=== PATIENT | male | born 1960 | race Caucasian/White ===

== ENCOUNTER 2020-02-09 16:02 | Emergency (ER) | payer MEDICARE, SELFPAY ==
[2020-02-09 16:11] VITALS: BP 173/100; PULSE 77; RESP 14; TEMP 36.6; O2SAT 96; BMI 40.6
[2020-02-09 16:28] VITALS: BP 173/112; PULSE 72; RESP 18; TEMP 36.7; O2SAT 96
--- NOTE | 2020-02-09 16:44 | XR_ITS ---
WS: [id number] PORTABLE CHEST HISTORY: SOB COMPARISON: 01/31/2019 Lungs are clear and well expanded. No pleural effusion or pneumothorax. Cardiac size: Normal. Mediastinum/Aorta: Normal mediastinum. No osseous abnormality seen. XR/XR chest 1V portable [id number] IMPRESSION: Unremarkable portable chest.
--- NOTE | 2020-02-09 16:44 | ECG_ITS ---
Measurements Intervals Wesley Rate: 67 P: 29 TX: 188 QRS: 25 QRSD: 110 T: 24 QT: 418 QTc: 442 SINUS RHYTHM No previous ECG available for comparison Electronically Signed On 02-10-2020 22:05:19 CDT by Dayanna Lazo M.D. [email or web address]
[2020-02-09 17:00] LABS: INR 0.93 (0.8-1.2)
[2020-02-09 17:01] LABS: Basophils % 0.6 %; Eosinophils # 0.1 10^3/uL (0.0-0.8); Eosinophils % 2.1 %; Hematocrit 37.2 % (42.0-52.0); Hemoglobin 12.7 g/dL (11.7-16.6); Lymphocytes # 1.4 10^3/uL (0.8-4.8); Lymphocytes % 29.2 %; Mean Corpuscular HGB Conc 34.1 g/dL (30.0-36.0); Mean Corpuscular Hemoglobin 29.1 pg (28.0-34.0); Mean Corpuscular Volume 85.1 fL (80-94); Mean Platelet Volume 9.6 fL (7.4-10.4); Monocytes # 0.7 10^3/uL (0.2-0.9); Monocytes % 15.8 %; Neutrophils # 2.4 10^3/uL (1.8-7.7); Neutrophils % 50.4 %; Nucleated Red Blood Cells % 0 %; Platelet Count 130 10^3/cmm (130-400); Red Blood Count 4.37 10^6/uL (4.1-5.3); Red Cell Distribution Width 12.4 % (12.1-15.1); White Blood Count 4.7 10^3/uL (4.0-10.0)
[2020-02-09 17:03] LABS: D Dimer 1.91 ug/mIFEU (0-0.59)
[2020-02-09 17:08] LABS: Troponin T (5th) Once 16 ng/mL (0-15)
--- NOTE | 2020-02-09 17:11 | W.ED.GENADLT ---
HPI - General Adult General: Chief complaint: General Medical Stated complaint: sent by dr estuardo black Time Seen by Provider: 02/09/20 16:20 History of Present Illness: HPI narrative: Mr. Curiel is a 59 year old male presenting with concerns for kidney problems. he has a history of lupus and thinks his current symptoms are similar to when he was first diagnosed in 2003. He has had morning nausea for about 10 days, increased swelling in his legs that doesn't go down at night, back pain and since yesterday his eyes have been red and painful. He is not currently on any medication for lupus - he was treated with chemotherapy and did so well that he hasn't had to be on anything for a while. Dr. Black is his PCP and she asked him to come in to get test done. Associated symptoms: Deny chest pain, dyspnea, headache(s), malaise, nausea, rash or vomiting Review of Systems General: Reports: 10 or more systems reviewed and unremarkable except in HPI and below Const: Denies: fever(s), chills, fatigue or malaise Eyes: Reports: eye discomfort and eye redness ENMT: Denies: odynophagia Card: Reports: swelling of feet/ankles; Denies: chest pain, lightheadedness or orthopnea Resp: Denies: dyspnea, productive cough or non-productive cough GI: Denies: abdominal pain, nausea or vomiting : Denies: flank pain Musc: Reports: back pain; Denies: neck pain Skin/Breast: Denies: rash Neuro: Denies: headache(s), numbness in extremities or weakness in extremities Sam/Lymph: Denies: easy bruising or easy bleeding [facility] ED PFSH: Social History Smoking and tobacco status: never smoked Physical Exam Const: COMMON NORMALS: no acute distress, patient oriented x3, no limitations and alert GENERAL APPEARANCE: cooperative and comfortable HENMT: HEAD & SCALP: normal to inspection FACE & SINUS: normal facial exam Eye: CONJUNCTIVA: Yes conjunctival abnormal ([place] redness of the conjunctive of both eyes, greater on the right than the left) Neck/C-Spine: COMMON NORMALS: supple, no meningeal signs and no JVD Chest: COMMONS NORMALS: normal inspection of the chest Resp: COMMON NORMALS: normal respiratory effort, No use of accessory muscles and clear to auscultation bilaterally AUSCULTATION: clear to auscultation bilaterally Cardio: COMMON NORMALS: no JVD, regular rate, regular rhythm and No murmurs present (Cardio) RATE: regular rate RHYTHM: regular rhythm GI: COMMON NORMALS: Normal to inspection, nondistended, normoactive bowel sounds present, Soft to palpation and non-tender INSPECTION: Yes normal to inspection AUSCULTATION: Yes normoactive bowel sounds PALPATION: Yes Soft to palpation Back/Pelvis: COMMON NORMALS: thoracic and lumbar spine normal to inspection Extremity: NARRATIVE EXTREMITY EXAM: Marked pedal edema, 2+ pitting Neuro: COMMON NORMALS: patient oriented x3, moves all extremities, no focal motor deficits and no sensory deficits noted SENSORIUM/ORIENTATION: Yes alert MENINGEAL SIGNS: Yes no meningeal signs Psych: COMMON NORMALS: mental status grossly normal, cooperative and normal affect Skin: COMMON NORMALS: no rashes or lesions noted and turgor normal GENERAL SKIN EXAM: no rashes or lesions noted and turgor normal Course ED course: This patient with a history of lupus is presenting with acute renal failure. He has protein and blood in the urine. His albumin is low. His potassium is normal at 4.2 and he is not acidotic. He is slightly anemic at 12.7. His d-dimer was elevated as where his CRP and ESR. Ultrasounds of his legs showed no acute clots, just chronic clots which she knew we had. BNP was only 525. I spoke with Dr. Harris his primary care physician and she said they had checked labs about 10 days ago and his creatinine was just above 2 at that time. His baseline is about 1.5. He sees Dr. Mooney at [facility]. He does not currently have a learning and development intern. He is agreeable to transfer to [facility] for further work-up and management of his kidneys. I spoke to Dr. Alvarez at [facility] who is a hospitalist and has accepted the patient as a direct admit. Vital Signs: Vital signs: Vital Signs Temperature 98.0 F 02/09/20 16:28 Pulse Rate 70 02/09/20 20:18 Respiratory Rate 20 H 02/09/20 20:18 Blood Pressure 152/101 02/09/20 20:18 Pulse Oximetry 97 02/09/20 20:18 MDM - General Adult Lab Data: Labs: Lab Results 02/09/20 02/09/20 02/09/20 Range/Units 16:40 16:40 16:40 WBC 4.7 (4.0-10.0) 10^3/ uL RBC 4.37 (4.1-5.3) 10^6/u L Hgb 12.7 (11.7-16.6) g/dL Hct 37.2 L (42.0-52.0) % MCV 85.1 (80-94) fL MCH 29.1 (28.0-34.0) pg MCHC 34.1 (30.0-36.0) g/dL RDW 12.4 (12.1-15.1) % Plt Count 130 (130-400) 10^3/c mm MPV 9.6 (7.4-10.4) fL Neut % (Auto) 50.4 % Lymph % (Auto) 29.2 % [place] % (Auto) 15.8 % Eos % (Auto) 2.1 % Baso % (Auto) 0.6 % Neut # (Auto) 2.4 (1.8-7.7) 10^3/u L Lymph # (Auto) 1.4 (0.8-4.8) 10^3/u L [place] # (Auto) 0.7 (0.2-0.9) 10^3/u L Eos # (Auto) 0.1 (0.0-0.8) 10^3/u L Baso # (Auto) 0.0 (0.0-0.1) 10^3/u L Nucleated RBC % (a uto) 0 % Nucleated RBCs # 0.0 /100WBC ESR 76 H (0-10) mm/hr PT 12.80 (10.5-13.3) SECO NDS INR 0.93 (0.8-1.2) D-Dimer 1.91 H (0-0.59) ug/mIFE U Sodium (136-145) mmol/L Potassium (3.5-5.1) mmol/L Chloride (98-107) mmol/L Carbon Dioxide (22-29) mmol/L Anion Gap (5-19) BUN (6-20) mg/dL Creatinine (0.7-1.2) mg/dL GFR Calculation (90-130) mL/min Glucose (65-115) mg/dL Calculated Osmolal ity (285-295) mOsm/k g Lactate (0.5-2.2) mmol/L Calcium (8.5-10.5) mg/dL Magnesium (1.7-2.3) mg/dL Total Bilirubin (0.15-1.2) mg/dL AST (0-40) U/L ALT (0-41) U/L Alkaline Phosphata se (40-130) IU/L Troponin T Gen 5 n g/L (0-15) ng/mL C-Reactive Protein (0.0-4.9) mg/L NT-Pro-B Natriuret Pep (0-125) pg/mL Total Protein (6.6-8.7) g/dL Albumin (3.5-5.2) g/dL Globulin (1.3-4.6) g/dL Lipase (13-60) U/L Urine Color (Yellow) Urine Appearance (CLEAR) Urine pH (5-7) Ur Specific Gravit y (1.005-1.030) Urine Protein (Negative) Urine Glucose (UA) (Normal) Urine Ketones (Negative) Urine Blood (Negative) Urine Nitrate (Negative) Urine Bilirubin (NEGATIVE) Urine Urobilinogen (Negative) mg/dL Ur Leukocyte Flores ase (Negative) Urine RBC (0-2) /hpf Urine WBC (0-5) /hpf Ur Squamous Epith Cells (0-5) Urine Bacteria (NONE) Hyaline Casts 02/09/20 02/09/20 02/09/20 Range/Units 16:40 16:40 16:40 WBC (4.0-10.0) 10^3/ uL RBC (4.1-5.3) 10^6/u L Hgb (11.7-16.6) g/dL Hct (42.0-52.0) % MCV (80-94) fL MCH (28.0-34.0) pg MCHC (30.0-36.0) g/dL RDW (12.1-15.1) % Plt Count (130-400) 10^3/c mm MPV (7.4-10.4) fL Neut % (Auto) % Lymph % (Auto) % [place] % (Auto) % Eos % (Auto) % Baso % (Auto) % Neut # (Auto) (1.8-7.7) 10^3/u L Lymph # (Auto) (0.8-4.8) 10^3/u L [place] # (Auto) (0.2-0.9) 10^3/u L Eos # (Auto) (0.0-0.8) 10^3/u L Baso # (Auto) (0.0-0.1) 10^3/u L Nucleated RBC % (a uto) % Nucleated RBCs # /100WBC ESR (0-10) mm/hr PT (10.5-13.3) SECO NDS INR (0.8-1.2) D-Dimer (0-0.59) ug/mIFE U Sodium 136 (136-145) mmol/L Potassium 4.2 (3.5-5.1) mmol/L Chloride 101 (98-107) mmol/L Carbon Dioxide 22 (22-29) mmol/L Anion Gap 17.2 (5-19) BUN 61 H (6-20) mg/dL Creatinine 3.7 H (0.7-1.2) mg/dL GFR Calculation 17.0 L (90-130) mL/min Glucose 102 (65-115) mg/dL Calculated Osmolal ity 281 L (285-295) mOsm/k g Lactate (0.5-2.2) mmol/L Calcium 8.9 (8.5-10.5) mg/dL Magnesium 2.4 H (1.7-2.3) mg/dL Total Bilirubin 0.2 (0.15-1.2) mg/dL AST 32 (0-40) U/L ALT 26 (0-41) U/L Alkaline Phosphata se 70 (40-130) IU/L Troponin T Gen 5 n g/L 16 H (0-15) ng/mL C-Reactive Protein 4.2 (0.0-4.9) mg/L NT-Pro-B Natriuret Pep 252 H (0-125) pg/mL Total Protein 6.1 L (6.6-8.7) g/dL Albumin 2.8 L (3.5-5.2) g/dL Globulin 3.3 (1.3-4.6) g/dL Lipase 94 H (13-60) U/L Urine Color Straw (Yellow) Urine Appearance Clear (CLEAR) Urine pH 6 (5-7) Ur Specific Gravit y 1.010 (1.005-1.030) Urine Protein 3+ H (Negative) Urine Glucose (UA) Norm (Normal) Urine Ketones Negative (Negative) Urine Blood 3+ H (Negative) Urine Nitrate Negative (Negative) Urine Bilirubin Neg (NEGATIVE) Urine Urobilinogen Norm (Negative) mg/dL Ur Leukocyte Flores ase Negative (Negative) Urine RBC 5-10 H (0-2) /hpf Urine WBC 5-10 H (0-5) /hpf Ur Squamous Epith Cells 0-4 H (0-5) Urine Bacteria 1+ H (NONE) Hyaline Casts 0-4 H 05/25/20 Range/Units 17:07 WBC (4.0-10.0) 10^3/ uL RBC (4.1-5.3) 10^6/u L Hgb (11.7-16.6) g/dL Hct (42.0-52.0) % MCV (80-94) fL MCH (28.0-34.0) pg MCHC (30.0-36.0) g/dL RDW (12.1-15.1) % Plt Count (130-400) 10^3/c mm MPV (7.4-10.4) fL Neut % (Auto) % Lymph % (Auto) % [place] % (Auto) % Eos % (Auto) % Baso % (Auto) % Neut # (Auto) (1.8-7.7) 10^3/u L Lymph # (Auto) (0.8-4.8) 10^3/u L [place] # (Auto) (0.2-0.9) 10^3/u L Eos # (Auto) (0.0-0.8) 10^3/u L Baso # (Auto) (0.0-0.1) 10^3/u L Nucleated RBC % (a uto) % Nucleated RBCs # /100WBC ESR (0-10) mm/hr PT (10.5-13.3) SECO NDS INR (0.8-1.2) D-Dimer (0-0.59) ug/mIFE U Sodium (136-145) mmol/L Potassium (3.5-5.1) mmol/L Chloride (98-107) mmol/L Carbon Dioxide (22-29) mmol/L Anion Gap (5-19) BUN (6-20) mg/dL Creatinine (0.7-1.2) mg/dL GFR Calculation (90-130) mL/min Glucose (65-115) mg/dL Calculated Osmolal ity (285-295) mOsm/k g Lactate 0.6 (0.5-2.2) mmol/L Calcium (8.5-10.5) mg/dL Magnesium (1.7-2.3) mg/dL Total Bilirubin (0.15-1.2) mg/dL AST (0-40) U/L ALT (0-41) U/L Alkaline Phosphata se (40-130) IU/L Troponin T Gen 5 n g/L (0-15) ng/mL C-Reactive Protein (0.0-4.9) mg/L NT-Pro-B Natriuret Pep (0-125) pg/mL Total Protein (6.6-8.7) g/dL Albumin (3.5-5.2) g/dL Globulin (1.3-4.6) g/dL Lipase (13-60) U/L Urine Color (Yellow) Urine Appearance (CLEAR) Urine pH (5-7) Ur Specific Gravit y (1.005-1.030) Urine Protein (Negative) Urine Glucose (UA) (Normal) Urine Ketones (Negative) Urine Blood (Negative) Urine Nitrate (Negative) Urine Bilirubin (NEGATIVE) Urine Urobilinogen (Negative) mg/dL Ur Leukocyte Flores ase (Negative) Urine RBC (0-2) /hpf Urine WBC (0-5) /hpf Ur Squamous Epith Cells (0-5) Urine Bacteria (NONE) Hyaline Casts Discharge Plan Discharge Condition: Good Prescriptions: No Action losartan 50 mg tablet 50 mg PO BID RF: 0 amlodipine 10 mg tablet 10 mg PO DAILY RF: 0 metoprolol tartrate 50 mg tablet 50 mg PO BID RF: 0 hydrochlorothiazide 25 mg tablet 25 mg PO DAILY RF: 0 duloxetine 30 mg capsule,delayed release(DR/EC) 30 mg PO DAILY RF: 0 Coding Level of Care Code ED Metal Tank Builder for Chg Fwd Exam Comprehensive
--- NOTE | 2020-02-09 17:13 | USR_ITS ---
PROCEDURE INFORMATION: Exam: US Duplex Lower Extremity Veins, Bilateral Exam date and time: 02/09/2020 5:14 PM Age: 59 years old Clinical indication: Pain; Swelling (edema) of limb; Lower extremity, bilateral; Leg, lower; Patient HX: History of dvt (rle) years ago; Additional info: H/o clots, leg swelling and pain TECHNIQUE: Imaging protocol: Real-time duplex ultrasound of the extremities with 2-D swift scale, color Doppler flow and spectral waveform analysis with image documentation. Complete exam focused on the bilateral lower extremity veins. COMPARISON: No relevant prior studies available. FINDINGS: Right deep veins: Linear areas of increased echogenicity and a small volume of nonocclusive thrombus is seen in the right popliteal and peroneal. These changes likely represent chronic venous thrombosis. There is evidence of compressibility and flow. The common femoral, femoral, proximal profunda femoral veins are patent without thrombus. Normal Doppler waveforms. Normal compressibility and/or augmentation response. Right superficial veins: Saphenofemoral junction is patent without thrombus. Left deep veins: Unremarkable. The common femoral, femoral, proximal profunda femoral and popliteal veins are patent without thrombus. Normal Doppler waveforms. Normal compressibility and/or augmentation response. Left superficial veins: Saphenofemoral junction is patent without thrombus. Soft tissues: Unremarkable. US/CV venous duplex [facility] [id number] IMPRESSION: Chronic nonocclusive venous thrombosis right popliteal and peroneal veins Otherwise No evidence of deep vein thrombosis.
[2020-02-09 17:18] LABS: Alanine Aminotransferase 26 U/L (0-41); Albumin Level 2.8 g/dL (3.5-5.2); Alkaline Phosphatase 70 IU/L (40-130); Anion Gap 17.2 (5-19); Aspartate Amino Transferase 32 U/L (0-40); Blood Urea Nitrogen 61 mg/dL (6-20); C Reactive Protein 4.2 mg/L (0.0-4.9); Calcium 8.9 mg/dL (8.5-10.5); Carbon Dioxide 22 mmol/L (22-29); Chloride 101 mmol/L (98-107); Globulin 3.3 g/dL (1.3-4.6); Glucose 102 mg/dL (65-115); Lipase 94 U/L (13-60); Magnesium 2.4 mg/dL (1.7-2.3); NT Pro B Type Natriuretic Pept 252 pg/mL (0-125); Osmolality Calculated 281 mOsm/kg (285-295); Potassium 4.2 mmol/L (3.5-5.1); Sodium 136 mmol/L (136-145); Total Bilirubin 0.2 mg/dL (0.15-1.2); Total Protein 6.1 g/dL (6.6-8.7)
[2020-02-09 17:30] VITALS: BP 157/92; PULSE 70; RESP 18; O2SAT 96
--- NOTE | 2020-02-09 17:37 | PC.NURSE ---
BOTH EYE RED, VISION CLEAR, NO VISUAL PROBLEMS. STATES HIS EYE ARE ALWAYS RED. NO DRAINAGE.
[2020-02-09 17:46] LABS: Erythrocyte Sedimentation Rate 76 mm/hr (0-10)
[2020-02-09 17:51] LABS: Lactate (Lactic Acid level) 0.6 mmol/L (0.5-2.2)
[2020-02-09 18:00] LABS: Add Urine Microscopic? YES; Bilirubin Urine Neg (NEGATIVE); Blood Urine 3+ (Negative); Glucose Urine UA Norm (Normal); Ketones Urine Negative (Negative); Leukocyte Esterase Urine Negative (Negative); Nitrate Urine Negative (Negative); Protein Urine 3+ (Negative); Urine Appearance Clear (CLEAR); Urine Color Straw (Yellow); Urobilinogen Urine Norm (Negative); pH Urine 6 (5-7)
[2020-02-09 18:21] VITALS: BP 170/105; PULSE 69; RESP 18; O2SAT 98
--- NOTE | 2020-02-09 18:26 | PC.NURSE ---
DOPPLER COMPLETED, LIGHTS OFF. NO ACUTE DISTRESS. CONTINUE TO MONITOR. WAITING FOR FURTHER ORDERS
[2020-02-09 18:34] LABS: Bacteria Urine 1+; Hyaline Casts Urine 0-4; Squamous Epithelial Cell Urine 0-4 (0-5)
--- NOTE | 2020-02-09 19:11 | PC.NURSE ---
report given to Sammie EVANS
[2020-02-09 20:18] VITALS: BP 152/101; PULSE 70; RESP 20; O2SAT 97
[2020-02-09 23:37] VITALS: BP 164/103; PULSE 71; RESP 18; O2SAT 96
[2020-02-10] VITALS (7 sets, daily range): BP systolic 147–153; BP diastolic 82–103; PULSE 75; RESP 18; O2SAT 93–95
== END 2020-02-10 01:49 ==
PROVIDERS: Emergency Provider Emergency Medicine; Family Provider Internal Medicine
DX: R11.0 Nausea (principal); M79.89 Other specified soft tissue disorders
CPT/HCPCS: 12345; 71045; 80053; 81001; 83605; 83690; 83735; 83880; 84484; 85025; 85378; 85610; 85651; 86140; 93005; 93970; 99284; 99285

== ENCOUNTER → 2020-03-18 10:23 | Outpatient (BNVA) | payer MEDICARE, SELFPAY | PROVIDERS: Family Provider Internal Medicine; PCP Internal Medicine; Visit Provider Internal Medicine Rheumatology | DX: M32.9 Systemic lupus erythematosus, unspecified (principal); Z79.899 Other long term (current) drug therapy; R76.8 Other specified abnormal immunological findings in serum; M32.14 Glomerular disease in systemic lupus erythematosus; Z91.14 Patient's other noncompliance with medication regimen; Z79.52 Long term (current) use of systemic steroids; M19.90 Unspecified osteoarthritis, unspecified site | CPT/HCPCS: G0463 ==

== ENCOUNTER 2020-06-28 10:23 | Outpatient (CLI) | payer MEDICARE, SELFPAY | END 2020-06-28 10:24 | disposition home or self-care (01) | PROVIDERS: PCP Internal Medicine; Visit Provider Internal Medicine Nephrology | DX: R11.0 Nausea (principal); R19.7 Diarrhea, unspecified | CPT/HCPCS: 87506 ==

== ENCOUNTER 2020-07-03 20:18 | Inpatient (IN) | payer MEDICARE, SELFPAY ==
[2020-07-03 21:13] VITALS: TEMP 36.9
--- NOTE | 2020-07-03 22:49 | PM.HP ---
Providers/Chief Complaint Admitting Physician: Jared Mcnally MD Primary Care Provider: Neva Black MD Chief Complaint: COVID PNEUMONIA History of Present Illness Tyler Curiel is a 60 year old male who carries history of systemic lupus, immunocompromised, chronic steroid user, mycophenolate regimen, end-stage renal disease Sunday, presented to the outside facility with chief complaint of hypoxia and shortness of breath. Patient is stating that his symptoms started about a week ago, he is scheduled for peritoneal dialysis catheter placement at [facility] for which he got tested on Sunday, on he was notified about positive results, he was asked to come to the hospital if he starts experiencing hypoxia or spike fever. At home he noticed temperature 102, O2 saturation dropped to 87% on ambulation, at rest he was not becoming hypoxic. Dr. Mcnally accepted the patient to be transferred from [facility]. On arrival to our viral ICU, patient was saturating well on room air, he was afebrile, he was not in any respiratory distress, normal hemodynamics, was able to give me above-mentioned details, I have started him on dexamethasone and antiviral remdesevir considering immunocompromise state however he is not hypoxic. 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 Review of Systems Const: Reports: fever(s), chills, body aches and fatigue Eyes: Denies: change in vision ENMT: Denies: throat pain Card: Reports: swelling of feet/ankles and dyspnea on exertion; Denies: chest pain Resp: Reports: dyspnea GI: Reports: diarrhea (For last 2 weeks); Denies: abdominal pain or constipation : Denies: flank pain Musc: Denies: neck pain Skin/Breast: Reports: rash, skin tenderness, skin swelling, new lesions and changing lesions Neuro: Denies: headache(s) Psych: Denies: anxiety Endo: Denies: polyuria Sam/Lymph: Denies: easy bruising All/Imm: Denies: urticaria Medications/Allergies Home Medications Medication Instructions Recorded Confirmed Last Taken Type amlodipine 10 mg PO DAILY 02/09/20 03/18/20 02/08/20 History duloxetine 30 mg PO DAILY 02/09/20 03/18/20 02/08/20 History losartan 50 mg PO BID 02/09/20 03/18/20 Unknown History metoprolol tartrate 50 mg PO BID 02/09/20 03/18/20 02/09/20 History clonidine HCl PO TID 03/18/20 03/18/20 Unknown History mycophenolate mofetil 500 mg tablet 1,000 mg PO BID tab 03/18/20 03/18/20 Unknown History prednisone 20 mg tablet See Rx Instructions PO DAILY 03/18/20 03/18/20 Unknown History bumetanide 2 mg PO BID 07/03/20 07/03/20 07/03/20 08:00 History doxycycline hyclate 100 mg PO DAILY 07/03/20 07/03/20 07/03/20 08:00 History ergocalciferol (vitamin D2) See Rx Instructions .ROUTE .COMPLEX 07/03/20 07/03/20 07/01/20 08:00 History 91097 vit B,G-DT-jmcz-selen-vit D3-E 1 tab PO QPM 07/03/20 07/03/20 07/02/20 18:00 History [RenaPlex-D] Allergies Allergy/AdvReac Type Severity Reaction Status Date / Time Penicillins AdvReac rash Verified 03/18/20 10:43 PFSH Acute PFSH: Medical History ESRD (end stage renal disease) High risk medication use Hypertension Immunization counseling Inflammatory arthritis Kidney failure Non compliance w medication regimen Surgical History No history of previous surgery S/P dialysis catheter insertion Family History Other Hypertension Denies family history of Rheumatoid arthritis Diabetes Lupus Chronic kidney disease (CKD) Cancer Social History (Updated 07/03/20 @ 22:59 by Becca Silva MD) Alcohol intake: never Substance/Drug Use: never Household members: spouse Housing: House History of recent travel: No Vitals/I&O/Wt Last Vital Signs Temp 98.4 F 07/03/20 21:13 Physical Exam Narrative: EXAM NARRATIVE: Morbidly obese male currently not in any active distress When entered the room he was saturating well on room air Appears more than stated age S1, S2 no tachycardia Looks hypervolemic/volume overloaded Bilateral lower extremity 2+ pitting edema Right lower extremity hyperemia, nontender, pitting edema, nonpurulent cellulitis No calciphylaxis Abdomen soft distended bowel sound present No acute respiratory distress EOMI, PERRLA No neurological deficit Appropriate mood and affect Multiple discoid skin lupus findings A&P Assessment and plan (1) COVID-19 determined by clinical diagnostic criteria: Status: Acute (2) ESRD (end stage renal disease): Status: Acute (3) Cellulitis: Status: Acute (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 (6) Systemic lupus erythematosus: Status: Acute Additional A&P Information SARS covid 19/viral pneumonia Patient is saturating 94% on room air, patient is endorsing hypoxia on ambulation down to 87%, Considering his immunocompromised state I would start dexamethasone 6 mg daily along remdesevir Home O2 evaluation before discharge ventolin every 4 as needed treatment No acute respiratory distress We will check procalcitonin level End-stage renal disease, do hemodialysis dependent Sunday, he started dialysis this year, scheduled for peritoneal dialysis catheter placement at [facility] 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, voicemail left, awaiting response Lower extremity nonpurulent cellulitis I would continue doxycycline for now, check venous Doppler to rule out DVT of right leg Lupus nephritis I would hold mycophenolate for now, I am not sure whether there is drug interaction with antibiotic, kindly readdress in the morning Renal dialysis diet DVT prophylaxis: Heparin Full code Attestations Medical Necessity Statement*: Considering immunocompromise state with COVID-19 pneumonia and hypoxia on ambulation he might need more than 2 midnights in the hospital, clinical stay might change depending on his clinical progress Time Spent in Patient Care: (>than 50% of time spent in counselling and/or direct pt care on unit). 40mins Coding Level of Care Code Acute Import/Export Administrator for g Fwd Diagnoses COVID-19 determined by clinical diagnostic criteria U07.1 ESRD (end stage renal disease) N18.6 Cellulitis L03.90 Immunodeficiency secondary to chemotherapy Z79.899 Lupus nephritis M32.14 Systemic lupus erythematosus M32.9
[2020-07-04] VITALS (24 sets, daily range): BP systolic 109–150; BP diastolic 63–98; PULSE 64–84; RESP 14–30; TEMP 36.2–37.1; O2SAT 86–96; BMI 36.2
[2020-07-04] MEDS: heparin 5,000 unit/mL INJ 1 mL 5000 UNIT SUBCUT ×3 (00:20→22:18)
[2020-07-04] MEDS: cloNIDine 0.1 mg Tablet 0.2 MG PO ×3 (00:25→15:00)
[2020-07-04 05:51] LABS: Basophils % 0.2 %; Hematocrit 26.5 % (42.0-52.0); Hemoglobin 8.4 g/dL (11.7-16.6); Lymphocytes # 0.6 10^3/uL (0.8-4.8); Lymphocytes % 8.8 %; Mean Corpuscular HGB Conc 31.7 g/dL (30.0-36.0); Mean Corpuscular Hemoglobin 29.8 pg (28.0-34.0); Mean Platelet Volume 10.5 fL (7.4-10.4); Monocytes # 0.2 10^3/uL (0.2-0.9); Monocytes % 3.6 %; Neutrophils # 5.61 10^3/uL (1.8-7.7); Neutrophils % 84.7 %; Nucleated Red Blood Cells % 0 %; Platelet Count 98 10^3/cmm (130-400); Red Blood Count 2.82 10^6/uL (4.1-5.3); Red Cell Distribution Width 15.1 % (12.1-15.1); White Blood Count 6.6 10^3/uL (4.0-10.0)
[2020-07-04 06:18] LABS: Fibrinogen 621 mg/dL (174-498)
[2020-07-04 06:19] LABS: D Dimer 2.36 ug/mIFEU (0-0.59)
[2020-07-04 06:33] LABS: Anion Gap 20.2 (5-19); Blood Urea Nitrogen 69 mg/dL (6-20); Calcium 8.1 mg/dL (8.5-10.5); Carbon Dioxide 26 mmol/L (22-29); Chloride 97 mmol/L (98-107); Glomerular Filtration Rate 14.3 mL/min (90-130); Glucose 139 mg/dL (65-115); Osmolality Calculated 310 mOsm/kg (285-295); Potassium 4.2 mmol/L (3.5-5.1); Sodium 139 mmol/L (136-145)
[2020-07-04 08:49] LABS: C Reactive Protein 191.3 mg/L (0.0-4.9)
[2020-07-04] MEDS: metoprolol tartrate 50 mg Tablet 100 MG PO ×2 (09:00→17:15)
[2020-07-04] MEDS: doxycycline 100 mg Tablet PO (09:00)
[2020-07-04] MEDS: amlodipine 10 mg Tablet PO (09:00)
[2020-07-04] MEDS: losartan 50 mg Tablet PO (09:00)
[2020-07-04] MEDS: dexamethasone 4 mg Tablet 6 MG PO (09:00)
[2020-07-04 10:41] LABS: Procalcitonin 0.99 ng/mL (0-0.5)
[2020-07-04 10:51] LABS: Lactate Dehydrogenase 428 U/L (135-225)
--- NOTE | 2020-07-04 12:48 | P.PN_ITS ---
Subjective Subjective: Interval history: History and physical reviewed. Patient without any significant complaints other than his right leg has been painful. He believes it is getting a little bit better. Denies any shortness of breath currently. He has weaned off oxygen. Apparently symptoms of fever, right lower extremity erythema occurred about a week ago. Medications: Reviewed: Yes Vitals/I&O/Wt Last Vital Signs Temp 98.2 F 07/04/20 08:00 Pulse 79 07/04/20 12:00 Resp 25 H 07/04/20 12:00 BP 148/98 07/04/20 12:00 Pulse Ox 92 07/04/20 12:00 07/03/20 07/04/20 07/04/20 22:59 06:59 14:59 Intake Total 200 / 200 400 / 400 Output Total 600 / 600 Balance 200 / 200 -200 / -200 Weight last 48 hrs Weight 112.309 kg Weight 111.402 kg Physical Exam Narrative: EXAM NARRATIVE: General exam no apparent distress Cardiovascular regular rate and rhythm without murmur, dialysis catheter right chest Lungs clear no wheezing or crackles Abdomen is soft with positive bowel sounds Extremities no cyanosis or clubbing. Trace edema bilaterally. Right lower extremity with some erythema. Data : 07/04/20 04:32 07/04/20 04:32 A&P Assessment and plan (1) COVID-19 determined by clinical diagnostic criteria: Diagnosed with pneumonia on admission on admission he was placed on remdesivir and dexamethasone Albuterol. Continue to follow closely for any oxygen requirement Procalcitonin level was was elevated but he does have cellulitis Status: Acute (2) ESRD (end stage renal disease): Consult nephrology for hemodialysis Status: Acute (3) Cellulitis: Vancomycin 1 g IV now, redose at following dialysis for right lower extremity cellulitis Await venous duplex Status: Acute (4) Lupus nephritis: Status: Acute (5) Systemic lupus erythematosus: With history of lupus nephritis Hold mycophenolate Dexamethasone used for Covid should suffice for his home prednisone dosing Status: Acute Additional A&P Information Anemia, likely secondary to renal disease Thrombocytopenia. Continue to monitor secondary to heparin prophylaxis Heparin for DVT prophylaxis Full code Of note he had a stool test positive for Salmonella DNA 6 days ago ordered by nephrology. I will get further history regarding this as he did not complain of diarrhea when I saw him earlier. Also note that his blood cultures, were drawn at [place]. These are negative today. Attestations Medical Necessity Statement*: Needs continued hospitalization for close monitoring of COVID-19 pneumonia Coding Level of Care Code Acute Oil Inspector for [facility] F[facility] Diagnoses COVID-19 determined by clinical diagnostic criteria U07.1 ESRD (end stage renal disease) N18.6 Cellulitis L03.90 Lupus nephritis M32.14 Systemic lupus erythematosus M32.9
--- NOTE | 2020-07-04 12:53 | XRR_ITS ---
PROCEDURE INFORMATION: Exam: XR Chest, 1 View Exam date and time: 07/04/2020 2:33 PM Age: 60 years old Clinical indication: Condition or disease; Lung condition and disease; Pneumonia; Viral; Patient HX: Covid +; Additional info: Follow up pneumonia TECHNIQUE: Imaging protocol: XR of the chest Views: 1 view. COMPARISON: CR XR chest 1V portable [id number] 02/09/2020 4:48 PM FINDINGS: Tubes, catheters and devices: Dual lumen central venous catheter tip projects over the cavoatrial junction. Lungs: There are patchy and hazy opacities in the mid to lower aspects of the bilateral lung tang, left greater than right. Pleural space: Unremarkable. No pleural effusion. No pneumothorax. Heart/Mediastinum: Unremarkable. No cardiomegaly. Bones/joints: Unremarkable. XR/XR chest 1V portable [id number] IMPRESSION: There are patchy and hazy opacities in the mid to lower aspects of the bilateral lung tang, left greater than right, consistent with pneumonia.
--- NOTE | 2020-07-04 15:30 | PC.NURSE ---
[id number] Patient has had pretty uneventful day. patient left FA IV was leaking, nurse changed venaguard. IV flushes well. Bilateral pitting edema noted by nurse. patient stated this is normal for me since i have been in dialysis . Telenephrology seen patient via Ipad. verbal statement made that patient will receive dialysis treatment tomorrow. Patient has been able to sit on side of bed and does not become short of breath. Has ate all meals with feet dangling off bed. Patient using bedside urinal. Nurse offered patient a bath, patient states I showered before I went into the ER yesterday, I do not want a bath today. vital signs have been WNL. will continue to monitor.
--- NOTE | 2020-07-04 16:23 | PM.CONSULT ---
Providers/Reason For Consult Consulting Physican/Specialty*: [place]/Telenephrology Reason for Consult*: ESRD Management and dialysis needs Attending Physician: Jared Mcnally MD Primary Care Provider: Neva Black MD History of Present Illness History of Present Illness Tyler Curiel is a 60 year old male with history of ESRD was tested covid positive few days back, was admitted after he was hypoxic on ambulation. Also had fever. Last dialysis was on sunday Review of Systems General: Reports: 10 or more systems reviewed and unremarkable except in HPI and below Const: Reports: fever(s); Denies: night sweats Card: Reports: edema; Denies: chest pain, palpitations, syncope or dyspnea on exertion Resp: Denies: productive cough GI: Reports: diarrhea; Denies: abdominal pain, nausea or vomiting Skin/Breast: Denies: rash Meds/Allergies Home Medications and Allergies Home Medications Medication Instructions Recorded Confirmed Last Taken Type amlodipine 10 mg PO DAILY 02/09/20 03/18/20 02/08/20 History duloxetine 30 mg PO DAILY 02/09/20 03/18/20 02/08/20 History losartan 50 mg PO BID 02/09/20 03/18/20 Unknown History metoprolol tartrate 50 mg PO BID 02/09/20 03/18/20 02/09/20 History clonidine HCl PO TID 03/18/20 03/18/20 Unknown History mycophenolate mofetil 500 mg tablet 1,000 mg PO BID tab 03/18/20 03/18/20 Unknown History prednisone 20 mg tablet See Rx Instructions PO DAILY 03/18/20 03/18/20 Unknown History bumetanide 2 mg PO BID 07/03/20 07/03/20 07/03/20 08:00 History doxycycline hyclate 100 mg PO DAILY 07/03/20 07/03/20 07/03/20 08:00 History ergocalciferol (vitamin D2) See Rx Instructions .ROUTE .COMPLEX 07/03/20 07/03/20 07/01/20 08:00 History [id number] vit B,Q-PT-jopt-selen-vit D3-E 1 tab PO QPM 07/03/20 07/03/20 07/02/20 18:00 History [RenaPlex-D] Allergies Allergy/AdvReac Type Severity Reaction Status Date / Time Penicillins AdvReac rash Verified 03/18/20 10:43 Current Medications Current Medications Generic Name Dose Route Start Last Admin Trade Name Patrick PRN Reason Stop Dose Admin Amlodipine Besylate 10 mg 07/04/20 09:00 07/04/20 09:00 Norvasc PO 10 mg DAILY MEDHAT Administration Clonidine HCl 0.2 mg 07/04/20 09:00 07/04/20 15:00 Catapres PO 0.2 mg TID MEDHAT Administration Dexamethasone 6 mg 07/04/20 09:00 07/04/20 09:00 Decadron PO 6 mg DAILY MEDHAT Administration Heparin Sodium (Beef Lung) 5,000 unit 07/03/20 21:15 07/04/20 13:23 Heparin SUBCUT 5,000 unit Q8H MEDHAT Administration Metoprolol Tartrate 100 mg 07/04/20 09:00 07/04/20 09:00 Lopressor PO 100 mg BID MEDHAT Administration PFSH Acute PFSH: Medical History ESRD (end stage renal disease) High risk medication use Hypertension Immunization counseling Inflammatory arthritis Kidney failure Non compliance w medication regimen Surgical History No history of previous surgery S/P dialysis catheter insertion Family History Other Hypertension Denies family history of Rheumatoid arthritis Diabetes Lupus Chronic kidney disease (CKD) Cancer Social History Alcohol intake: never Substance/Drug Use: never Household members: spouse Housing: House History of recent travel: No Vitals/I&O/Wt Last Vital Signs Temp 98.7 F 07/04/20 14:00 Pulse 69 07/04/20 16:00 Resp 21 H 07/04/20 16:00 BP 120/83 07/04/20 16:00 Pulse Ox 92 07/04/20 16:00 07/04/20 07/04/20 07/04/20 06:59 14:59 22:59 Intake Total 200 / 200 400 / 400 Output Total 600 / 600 Balance 200 / 200 -200 / -200 Weight last 48 hrs Weight 112.309 kg Weight 111.402 kg Physical Exam Const: COMMON NORMALS: no acute distress and patient oriented x3 GENERAL APPEARANCE: cooperative and comfortable Resp: AUSCULTATION: rales Cardio: COMMON NORMALS: S1 normal heart sound present and S2 normal heart sound present HEART SOUNDS: S1 normal heart sound present and S2 normal heart sound present GI: AUSCULTATION: Yes normoactive bowel sounds Extremity: GENERAL: Yes edema Neuro: COMMON NORMALS: patient oriented x3 Skin: COMMON NORMALS: no rashes or lesions noted GENERAL SKIN EXAM: no rashes or lesions noted A&P Assessment and plan (1) ESRD (end stage renal disease): No acute indication for dialysis today, will plan on mon for 4hrs Status: Acute (2) HTN (hypertension): BP under control Status: Acute (3) Anemia: Will give epo with dialysis Status: Acute Consult Attestations Medical Necessity Statement: COVID pneumonia Coding Level of Care Code Acute Internal Medicine Specialist for Chg Fwd Diagnoses ESRD (end stage renal disease) N18.6 HTN (hypertension) I10 Anemia D64.9
--- NOTE | 2020-07-04 21:30 | USCV_ITS ---
Tyler Curiel Age: 60 Gender: M : 1960 Exam Date: 07/04/2020 08:52 Ordering Phys: Becca Silva MD Technologist: Sammie Pitts [place] [facility] [place]: DVT HISTORY: History of deep venous thrombosis. PROCEDURES: Comparison: 02-09-20. Venous duplex imaging was performed in only the right lower extremity. The following venous structures were evaluated: common femoral vein, profunda vein, proximal portion of the greater saphenous vein, superficial femoral vein, and the popliteal vein. In addition, the posterior tibial and peroneal trunk were evaluated. Serial compression, augmentation maneuvers, and spectral Doppler flow evaluation were performed. FINDINGS: No evidence of acute DVT seen in any vessel visualized at this time. Linear echoes in the popliteal vein and peroneal trunk. Compression and color flow documented in this area. Mid calf veins not well seen. No lucent areas in the subcutaneous tissue CONCLUSIONS 1. No evidence of any acute deep vein thrombosis in the above- mentioned identifiable veins. 2. Linear echogenic strands in the popliteal and peroneal veins suggestive of old thrombosis with recannulization 3. Features of fluid retention/edema in the lower leg 4. The calf veins cannot be visualized well Dr Steve Anaya MD FAC (Electronically Signed) Final Date: 04 July 2020 19:35 S
[2020-07-05] VITALS (29 sets, daily range): BP systolic 119–170; BP diastolic 67–100; PULSE 63–91; RESP 12–32; TEMP 36.8–37.1; O2SAT 85–96
[2020-07-05] MEDS: heparin 5,000 unit/mL INJ 1 mL 5000 UNIT SUBCUT ×3 (04:32→21:24)
[2020-07-05 06:08] LABS: Hematocrit 24.9 % (42.0-52.0); Hemoglobin 7.9 g/dL (11.7-16.6); Lymphocytes # 0.9 10^3/uL (0.8-4.8); Lymphocytes % 9.7 %; Mean Corpuscular HGB Conc 31.7 g/dL (30.0-36.0); Mean Corpuscular Hemoglobin 29.5 pg (28.0-34.0); Mean Corpuscular Volume 92.9 fL (80-94); Mean Platelet Volume 9.8 fL (7.4-10.4); Monocytes # 0.3 10^3/uL (0.2-0.9); Monocytes % 3.8 %; Neutrophils # 7.33 10^3/uL (1.8-7.7); Neutrophils % 82.2 %; Nucleated Red Blood Cells % 0 %; Platelet Count 114 10^3/cmm (130-400); Red Blood Count 2.68 10^6/uL (4.1-5.3); Red Cell Distribution Width 15.1 % (12.1-15.1); White Blood Count 8.9 10^3/uL (4.0-10.0)
[2020-07-05 06:35] LABS: Alanine Aminotransferase 20 U/L (0-41); Albumin Level 2.2 g/dL (3.5-5.2); Alkaline Phosphatase 58 IU/L (40-130); Anion Gap 18.9 (5-19); Aspartate Amino Transferase 26 U/L (0-40); Calcium 7.9 mg/dL (8.5-10.5); Carbon Dioxide 25 mmol/L (22-29); Chloride 100 mmol/L (98-107); Globulin 2.6 g/dL (1.3-4.6); Glomerular Filtration Rate 13.9 mL/min (90-130); Glucose 145 mg/dL (65-115); Osmolality Calculated 318 mOsm/kg (285-295); Potassium 3.9 mmol/L (3.5-5.1); Sodium 140 mmol/L (136-145); Total Bilirubin 0.2 mg/dL (0.15-1.2); Total Protein 4.8 g/dL (6.6-8.7)
[2020-07-05 07:10] LABS: Blood Urea Nitrogen 84 mg/dL (6-20)
[2020-07-05] MEDS: dexamethasone 4 mg Tablet 6 MG PO (08:18)
[2020-07-05] MEDS: amlodipine 10 mg Tablet PO (08:18)
[2020-07-05] MEDS: metoprolol tartrate 50 mg Tablet 100 MG PO ×2 (08:19→17:14)
[2020-07-05] MEDS: cloNIDine 0.1 mg Tablet 0.2 MG PO ×3 (08:20→21:23)
--- NOTE | 2020-07-05 09:48 | PC.NURSE ---
IS instructions IS given to patient. nurse instructed patient on how to use, use 10X every hour. patient was able to pull approximately 1800 on IS. productive cough noted by nurse. will continue to monitor.
--- NOTE | 2020-07-05 10:51 | PC.NURSE ---
ambulation patient ambulated in guillory with nurse. patient walked two laps around [facility] unit. became short of breath at the end of the walk. cough noted by nurse. patient stated that he has not walked since last week. When hooked back up to o2 monitor, oxygen saturation was 89% with 24 respirations. patient currently resting comfortably in chair watching TV. will continue to monitor.
--- NOTE | 2020-07-05 12:03 | PM.PN ---
Subjective Subjective: Interval history: Feels pretty well. No specific complaints. Breathing normally, cough, no hemoptysis. Some diarrhea. Pending dialysis for today No edema and no other volume assoc Sx. No uremic Sx Vitals/I&O/Wt Last Vital Signs Temp 98.7 F 07/05/20 09:00 Pulse 79 07/05/20 10:00 Resp 12 07/05/20 10:00 BP 132/92 07/05/20 10:00 Pulse Ox 92 07/05/20 10:00 07/04/20 07/05/20 07/05/20 22:59 06:59 14:59 Intake Total 300 / 700 120 / 120 Output Total 400 / 1000 200 / 1200 Balance -100 / -300 -200 / -500 120 / 120 Weight last 48 hrs Weight 79.038 kg Weight 112.309 kg Weight 111.402 kg Physical Exam Narrative: EXAM NARRATIVE: Constitutional: Awake, conversant, jovial HEENT: Wet mucosa, no jvp, non icteric Lungs: Bilaterally clear without discernible wheeze, rales in all lung zones CVS: S1 S2, no murmurs Abdo: Soft, BS ok Ext 4: Minimal edema, peripheral perfusion with no cyanosis Neurological: Grossly non-focal Data : 07/05/20 04:51 07/05/20 04:51 A&P Additional A&P Information 1. ESRD - for dialysis today 2K, UF 3L - dose meds for eGFR < 15 on dialysis 2. COVID - remdesivir and Dexa - doing well 3. LE cellulitis on Vanco 4. Lupus 5. Anemia - will check iron panel - EPO 10k iu x 1 today 6. Hemodynamics remain stable Herrera Butler MD Nephrology [phone] Patient seen and examined via telemedicine, with the assistance of the bedside RN Attestations Medical Necessity Statement*: eval for ESRD mgmt Coding Level of Care Code Acute [employer] Tube Tester for Padmini Sr
--- NOTE | 2020-07-05 12:06 | PM.PN ---
Subjective Subjective: Interval history: Patient is currently saturating well on room air. Denies any active, complaint. He is due for dialysis today. Has no complaints of constipation and diarrhea. Vitals and labs have been reviewed. Medications: Reviewed: Yes Vitals/I&O/Wt Last Vital Signs Temp 98.7 F 07/05/20 09:00 Pulse 79 07/05/20 10:00 Resp 12 07/05/20 10:00 BP 132/92 07/05/20 10:00 Pulse Ox 92 07/05/20 10:00 07/04/20 07/05/20 07/05/20 22:59 06:59 14:59 Intake Total 300 / 700 120 / 120 Output Total 400 / 1000 200 / 1200 Balance -100 / -300 -200 / -500 120 / 120 Weight last 48 hrs Weight 79.038 kg Weight 112.309 kg Weight 111.402 kg Physical Exam Const: COMMON NORMALS: patient oriented x3 HENMT: COMMON NORMALS: normocephalic, atraumatic, hearing grossly normal bilaterally and external ears normal HEAD & SCALP: normocephalic and atraumatic EXTERNAL EAR: Yes external ears normal Eye: COMMON NORMALS: no scleral icterus GENERAL EYE: appearance normal, both eyes and all related structures Chest: COMMONS NORMALS: normal inspection of the chest and normal palpation of entire chest wall CHEST: Yes Symmetrical chest wall rise Resp: COMMON NORMALS: normal respiratory effort, No retractions, No use of accessory muscles and clear to auscultation bilaterally EFFORT & INSPECTION: Yes symmetric chest movement AUSCULTATION: clear to auscultation bilaterally Cardio: COMMON NORMALS: regular rate, regular rhythm, S1 normal heart sound present, S2 normal heart sound present, No gallops present (Cardio), No murmurs present (Cardio), No rub (Cardio) and Peripheral pulses 2+ throughout RATE: regular rate RHYTHM: regular rhythm HEART SOUNDS: S1 normal heart sound present and S2 normal heart sound present PERIPHERAL PULSES: Peripheral pulses 2+ throughout GI: COMMON NORMALS: Normal to inspection, nondistended, normoactive bowel sounds present, Soft to palpation, non-tender, No hepatosplenomegaly present and no masses AUSCULTATION: Yes normoactive bowel sounds PALPATION: Yes Soft to palpation and Yes No hepatosplenomegaly present RECTAL EXAM: Yes deferred Extremity: COMMON NORMALS: no pedal edema NARRATIVE EXTREMITY EXAM: Bilateral 1+ pitting edema, right lower extremity erythema Neuro: COMMON NORMALS: patient oriented x3 Data : 07/05/20 04:51 07/05/20 04:51 A&P Assessment and plan (1) COVID-19 determined by clinical diagnostic criteria: Diagnosed with pneumonia on admission Continue remdesivir and dexamethasone Albuterol. Currently saturating well on room air Status: Acute (2) ESRD (end stage renal disease): Consult nephrology for hemodialysis Status: Acute (3) Cellulitis: Vancomycin 1 g IV now, redose at following dialysis for right lower extremity cellulitis. venous duplex: No evidence of any acute deep vein thrombosis Status: Acute (4) Lupus nephritis: Status: Acute (5) Systemic lupus erythematosus: With history of lupus nephritis Hold mycophenolate Dexamethasone used for Covid should suffice for his home prednisone dosing Status: Acute Additional A&P Information Anemia, likely secondary to renal disease Thrombocytopenia. Continue to monitor secondary to heparin prophylaxis Heparin for DVT prophylaxis Full code Of note he had a stool test positive for Salmonella DNA 6 days ago ordered by nephrology. Currently has no diarrhea. We will continue to monitor; no antibiotics for now Blood cultures, were drawn at [place]. These are negative today. Attestations Medical Necessity Statement*: Patient is to be in hospital for management of Covid pneumonia. Coding Level of Care Code Acute Public Relations Account Supervisor for Padmini Sr Diagnoses COVID-19 determined by clinical diagnostic criteria U07.1 ESRD (end stage renal disease) N18.6 Cellulitis L03.90 Lupus nephritis M32.14 Systemic lupus erythematosus M32.9
[2020-07-05] MEDS: epoetin alfa 10,000 unit/mL INJ 10000 UNIT SUBCUT (12:36)
[2020-07-05 12:55] LABS: Iron 81 ug/dL (59-158); Percent Saturation 59.5 % (20-50); Total Iron Binding Capacity 136 mcg/dl; Unsaturated Iron Binding 55 ug/dL (112-347)
[2020-07-06] VITALS (29 sets, daily range): BP systolic 118–175; BP diastolic 70–107; PULSE 61–80; RESP 12–27; TEMP 36.6–37.2; O2SAT 88–97
[2020-07-06] MEDS: heparin 5,000 unit/mL INJ 1 mL 5000 UNIT SUBCUT ×3 (05:47→20:40)
[2020-07-06] MEDS: dexamethasone 4 mg Tablet 6 MG PO (08:39)
[2020-07-06] MEDS: amlodipine 10 mg Tablet PO (08:39)
[2020-07-06] MEDS: cloNIDine 0.1 mg Tablet 0.2 MG PO ×3 (08:39→20:39)
[2020-07-06] MEDS: metoprolol tartrate 50 mg Tablet 100 MG PO ×2 (08:40→17:06)
--- NOTE | 2020-07-06 08:47 | PC.SOCIAL ---
IMM Update Pg. 2 of IMM updated with patient's over the phone. Verbalized understanding.
[2020-07-06] MEDS: bumetanide 1 mg Tablet 2 MG PO ×2 (09:08→20:38)
--- NOTE | 2020-07-06 09:26 | PC.NURSE ---
oxygen increased patient resting in bed watching TV. monitor alarmed for low O2 saturation. alarming 85% with good wave form. patient denies any shortness of breath at this time. currently on 1L NC. nurse increased to 4L NC informed patient to take slow deep breaths. took approximately 3 minutes for patient oxygen to increase to 91%. RT notified.
--- NOTE | 2020-07-06 13:53 | PM.PN ---
Subjective Subjective: Interval history: No new issues today. He is looking forward to going home. Dialysis went well yesterday with no complications. He denies extremity edema, shortness of breath and other volume associated symptoms. No cough or fevers or chills. Medications: Reviewed: Yes Vitals/I&O/Wt Last Vital Signs Temp 98.1 F 07/06/20 11:00 Pulse 69 07/06/20 10:00 Resp 24 H 07/06/20 12:00 BP 118/94 07/06/20 12:00 Pulse Ox 91 07/06/20 11:00 07/05/20 07/06/20 07/06/20 22:59 06:59 14:59 Intake Total 610 / 930 100 / 1030 550 / 550 Output Total 375 / 575 0 / 0 Balance 235 / 355 100 / 455 550 / 550 Weight last 48 hrs Weight 91.172 kg Weight 80.059 kg Weight 79.038 kg Physical Exam Narrative: EXAM NARRATIVE: Constitutional: Awake, conversant, jovial HEENT: Wet mucosa, no jvp, non icteric Lungs: Bilaterally clear without discernible wheeze, rales in all lung zones CVS: S1 S2, no murmurs Abdo: Soft, BS ok Ext 4: Minimal edema, peripheral perfusion with no cyanosis Neurological: Grossly non-focal Data : 07/05/20 04:51 07/05/20 04:51 A&P Additional A&P Information 1. ESRD - for dialysis tomorrow 2K, UF 3L - dose meds for eGFR < 15 on dialysis 2. COVID - remdesivir and Dexa - doing well 3. LE cellulitis on Vanco 4. Lupus 5. Anemia - will check iron panel - EPO 10k iu x 1 yesterday 6. Hemodynamics remain stable Herrera Butler MD Nephrology [phone] Patient seen and examined via telemedicine, with the assistance of the bedside RN Attestations Medical Necessity Statement*: esrd mgmt Coding Level of Care Code Acute Customer Solutions Coordinator for Padmini Sr
--- NOTE | 2020-07-06 16:56 | P.PN_ITS ---
Subjective Subjective: Interval history: No acute events overnight. Patient got dialyzed yesterday. And he got 1.5 g vancomycin dose postdialysis. Currently he is a still requiring intermittent oxygen via nasal currently on 2 L oxygen via nasal cannula. Vitals and labs have been reviewed. Medications: Reviewed: Yes Vitals/I&O/Wt Last Vital Signs Temp 99.0 F 07/06/20 16:05 Pulse 68 07/06/20 16:00 Resp 24 H 07/06/20 16:00 BP 121/91 07/06/20 16:00 Pulse Ox 95 07/06/20 16:00 07/06/20 07/06/20 07/06/20 06:59 14:59 22:59 Intake Total 100 / 1030 550 / 550 Output Total 0 / 0 500 / 500 Balance 100 / 455 550 / 550 -500 / 50 Weight last 48 hrs Weight 91.172 kg Weight 80.059 kg Weight 79.038 kg Physical Exam Narrative: EXAM NARRATIVE: COMMON NORMALS: patient oriented x3 [facility] COMMON NORMALS: normocephalic, atraumatic, hearing grossly normal bilaterally an d external ears normal HEAD & SCALP: normocephalic and atraumatic EXTERNAL EAR: Yes external ears normal Eye COMMON NORMALS: no scleral icterus GENERAL EYE: appearance normal, both eyes and all related structures Chest COMMONS NORMALS: normal inspection of the chest and normal palpation of entire chest wall CHEST: Yes Symmetrical chest wall rise Resp COMMON NORMALS: normal respiratory effort, No retractions, No use of accessory muscles and clear to auscultation bilaterally EFFORT & INSPECTION: Yes symmetric chest movement AUSCULTATION: clear to auscultation bilaterally Cardio COMMON NORMALS: regular rate, regular rhythm, S1 normal heart sound present, S2 normal heart sound present, No gallops present (Cardio), No murmurs present (Cardio), No rub (Cardio) and Peripheral pulses 2+ throughout RATE: regular rate RHYTHM: regular rhythm HEART SOUNDS: S1 normal heart sound present and S2 normal heart sound present PERIPHERAL PULSES: Peripheral pulses 2+ throughout GI COMMON NORMALS: Normal to inspection, nondistended, normoactive bowel sounds present, Soft to palpation, non-tender, No hepatosplenomegaly present and no masses AUSCULTATION: Yes normoactive bowel sounds PALPATION: Yes Soft to palpation and Yes No hepatosplenomegaly present RECTAL EXAM: Yes deferred Extremity COMMON NORMALS: no pedal edema NARRATIVE EXTREMITY EXAM: Bilateral 1+ pitting edema, right lower extremity erythema Neuro COMMON NORMALS: patient oriented x3 Data : 07/05/20 04:51 07/05/20 04:51 A&P Assessment and plan (1) COVID-19 determined by clinical diagnostic criteria: Diagnosed with pneumonia on admission Continue remdesivir and dexamethasone Albuterol. Currently saturating well on 2 L oxygen via nasal cannula. Status: Acute (2) ESRD (end stage renal disease): Consult nephrology for hemodialysis Status: Acute (3) Cellulitis: Vancomycin 1.5 g IV postdialysis yesterday. venous duplex: No evidence of any acute deep vein thrombosis Status: Acute (4) Lupus nephritis: Status: Acute (5) Systemic lupus erythematosus: With history of lupus nephritis Hold mycophenolate Dexamethasone used for Covid should suffice for his home prednisone dosing Status: Acute Additional A&P Information Anemia, likely secondary to renal disease Thrombocytopenia. Continue to monitor secondary to heparin prophylaxis Heparin for DVT prophylaxis Full code Of note he had a stool test positive for Salmonella DNA 6 days ago ordered by n ephrology. Currently has no diarrhea. We will continue to monitor; no antibiotics for now Blood cultures, were drawn at [place]. Were negative. Attestations Medical Necessity Statement*: needs to be in hospital for management of Covid pneumonia Coding Level of Care Code Acute Bait Man for [facility] Diagnoses COVID-19 determined by clinical diagnostic criteria U07.1 ESRD (end stage renal disease) N18.6 Cellulitis L03.90 Lupus nephritis M32.14 Systemic lupus erythematosus M32.9
[2020-07-06] MEDS: polyethylene glycol 3350 Pkt 17 gm PO (17:42)
--- NOTE | 2020-07-06 18:45 | PC.NURSE ---
Received report on patient from Ary VEANS. Assumed care at this time.
[2020-07-07] VITALS (17 sets, daily range): BP systolic 124–184; BP diastolic 72–116; PULSE 58–84; RESP 3–29; TEMP 36.8–37.1; O2SAT 83–99; BMI 29.7
[2020-07-07] MEDS: dexamethasone 4 mg Tablet 6 MG PO (08:28)
[2020-07-07] MEDS: bumetanide 1 mg Tablet 2 MG PO (08:28)
[2020-07-07] MEDS: heparin 5,000 unit/mL INJ 1 mL 5000 UNIT SUBCUT ×2 (09:42→14:34)
--- NOTE | 2020-07-07 09:44 | PC.NURSE ---
Remdesivir and heparin SQ given by CRISTINA Sellers on mixer wet pour, verified via phone.
--- NOTE | 2020-07-07 10:32 | P.DS_ITS ---
Discharge Providers Date of Admission: 07/03/20 20:18 Date of Discharge: July 07, 2020 Attending Provider at Admission: Jared Mcnally MD Attending Provider at Discharge: Wellington Hill MD Primary Care Provider: Neva Black MD Diagnoses at Discharge Discharge Diagnosis (1) COVID-19 determined by clinical diagnostic criteria: Status: Chronic (2) ESRD (end stage renal disease): Status: Chronic (3) Cellulitis: Status: Acute (4) Lupus nephritis: Status: Chronic (5) Systemic lupus erythematosus: Status: Chronic Reason for Visit Reason for Visit: COVID PNEUMONIA Hospital Course Hospital Course: 60-year-old male with past medical history of SLE, immunocompromised, chronic steroid user, mycophenolate regimen, end-stage renal disease Sunday, presented to the outside facility with chief complaint of hypoxia and shortness of breath.Patient stated that his symptoms started about a week ago. He was managed for Covid pneumonia while in hospital. He was kept on remdesivir(18-21) , and dexamethasone. He was also kept on vancomycin for lower extremity cellulitis. At the time of discharge he is saturating well mostly on room air and occasionally requiring 2 L of oxygen via nasal. We will discharge him levofloxacin 500 mg every 48 hour for 14-day course for his cellulitis. He is on prednisone at home.We will also give him budesonide inhaler on discharge. He is also qualified for 3 L of oxygen through nasal cannula on home O2 evaluation. He will follow pulmonary medicine Dr. Almanzar as outpatient. Patient is being discharged in stable condition. Physical Exam Const: COMMON NORMALS: patient oriented x3 HENMT: COMMON NORMALS: normocephalic, atraumatic, hearing grossly normal elva aterally and external ears normal HEAD & SCALP: normocephalic and atraumatic EXTERNAL EAR: Yes external ears normal Eye: COMMON NORMALS: no scleral icterus GENERAL EYE: appearance normal, both eyes and all related structures Chest: COMMONS NORMALS: normal inspection of the chest and normal palpation of entire chest wall CHEST: Yes Symmetrical chest wall rise Resp: COMMON NORMALS: normal respiratory effort, No retractions, No use of accessory muscles and clear to auscultation bilaterally EFFORT & INSPECTION: Yes symmetric chest movement AUSCULTATION: clear to auscultation bilaterally Cardio: COMMON NORMALS: regular rate, regular rhythm, S1 normal heart sound present, S2 normal heart sound present, No gallops present (Cardio), No murmurs present (Cardio), No rub (Cardio) and Peripheral pulses 2+ throughout RATE: regular rate RHYTHM: regular rhythm HEART SOUNDS: S1 normal heart sound present and S2 normal heart sound present PERIPHERAL PULSES: Peripheral pulses 2+ throughout GI: COMMON NORMALS: Normal to inspection, nondistended, normoactive bowel sounds present, Soft to palpation, non-tender, No hepatosplenomegaly present and no masses AUSCULTATION: Yes normoactive bowel sounds PALPATION: Yes Soft to palpation and Yes No hepatosplenomegaly present RECTAL EXAM: Yes deferred Extremity: COMMON NORMALS: no clubbing, cyanosis or edema and no pedal edema Neuro: COMMON NORMALS: patient oriented x3 Discharge Data Data Completed and Pending: Completed Studies During Hospitalization Category Date Time Status XR chest 1V brittney ble [id number] Routine Exams 07/04/20 12:53 [place] [id number] Routin e Ultrasound 07/04/20 21:30 Completed Vitals: Last Vital Signs Temp 98.2 F 07/07/20 07:00 Pulse 66 07/07/20 10:00 Resp 17 07/07/20 10:00 BP 139/82 07/07/20 10:00 Pulse Ox 95 07/07/20 10:00 Discharge Plan Discharge Patient Disposition: Home Condition: Stable Prescriptions: New budesonide 90 mcg/actuation aerosol powdr breath activated 2 inh INHALATION BID Qty: 1 RF: 0 levofloxacin 500 mg tablet 500 mg PO Q48H 14 Days Qty: 7 RF: 0 Continued clonidine HCl PO TID RF: 0 mycophenolate mofetil [CellCept] 500 mg tablet 1,000 mg PO BID RF: 0 prednisone 20 mg tablet See Rx Instructions PO DAILY RF: 0 losartan 50 mg tablet 50 mg PO BID RF: 0 amlodipine 10 mg tablet 10 mg PO DAILY RF: 0 metoprolol tartrate 50 mg tablet 50 mg PO BID RF: 0 duloxetine 30 mg capsule,delayed release(DR/EC) 30 mg PO DAILY RF: 0 bumetanide 2 mg tablet 2 mg PO BID RF: 0 ergocalciferol (vitamin D2) 1,250 mcg (50,000 unit) capsule See Rx Instructions .ROUTE .COMPLEX RF: 0 RenaPlex-D 800 mcg-12.5 mg -2,000 unit tablet 1 tab PO QPM RF: 0 Discontinued doxycycline hyclate 100 mg capsule 100 mg PO DAILY RF: 0 mycophenolate mofetil 500 mg tablet PO RF: 0 Discharge Orders: Discharge Order (Routine); Ordered 07/07/20 Ordered By: Wellington Hill Other Ambulatory Orders: DME: Oxygen (Order) Location: None Selected Ordered By: Wellington Hill Referrals: [facility] [place] [Outside] Datar,Robby Madrid MD [Physician] - 6 Weeks Discharge Diet: Low Salt Discharge Activity: Resume usual activity Discharge Attestations Time Spent in Discharge Care*: greater than 30 min Specific Discharge Activities: Specific discharge activities: educating patient, educating and/or supporting family/caregiver, discussing with pcp/other providers, discussing with case briefer/social workers/dc planners, documenting/other paperwork and evaluating patient/reviewing data Status at Discharge: Cognitive status at discharge: cognitively intact , Behavioral status at discharge: cooperative , Functional status at discharge: independent ambulation Overall status at discharge: patient is back to baseline Quality Metrics Clinical Quality Measures During this hospital stay, did patient experience: None Coding Level of Care Code Acute Heater Engineer Helper for [facility] Fwd Exam Comprehensive Diagnoses COVID-19 determined by clinical diagnostic criteria U07.1 ESRD (end stage renal disease) N18.6 Cellulitis L03.90 Lupus nephritis M32.14 Systemic lupus erythematosus M32.9
--- NOTE | 2020-07-07 12:38 | P.PN_ITS ---
Subjective Subjective: Interval history: Mrs. Curiel is seen and examined on dialysis. He is doing very well with this today. Blood pressures a little on the high side. He still has some lower extremity edema. No uremic symptoms. His line is working well. Dialysis parameters are reviewed Medications: Reviewed: Yes Vitals/I&O/Wt Last Vital Signs Temp 98.2 F 07/07/20 07:00 Pulse 66 07/07/20 10:00 Resp 17 07/07/20 10:00 BP 139/82 07/07/20 10:00 Pulse Ox 95 07/07/20 10:00 07/06/20 07/07/20 07/07/20 22:59 06:59 14:59 Intake Total 600 / 1150 360 / 360 Output Total 700 / 700 850 / 1550 350 / 350 Balance -100 / 450 -850 / -400 10 Weight last 48 hrs Weight 91.172 kg Weight 91.172 kg Weight 80.059 kg Physical Exam Narrative: EXAM NARRATIVE: Constitutional: Awake, conversant, jovial HEENT: Wet mucosa, no jvp, non icteric Lungs: Bilaterally clear without discernible wheeze, rales in all lung zones CVS: S1 S2, no murmurs Abdo: Soft, BS ok Ext 4: Minimal edema, peripheral perfusion with no cyanosis Neurological: Grossly non-focal Data : 07/05/20 04:51 07/05/20 04:51 A&P Additional A&P Information 1. ESRD - seen and examined on dialysis 2K, UF 3L - dose meds for eGFR < 15 on dialysis 2. COVID - remdesivir and Dexa - doing well 3. LE cellulitis on Vanco 4. Lupus 5. Anemia - will check iron panel - EPO 10k iu x 1 Sunday 6. 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
[2020-07-07] MEDS: cloNIDine 0.1 mg Tablet 0.2 MG PO (14:13)
--- NOTE | 2020-07-08 11:43 | PC.SOCIAL ---
Called and visited with the patients . She stated that her was doing better, she stated that he has his oxygen at home and that [facility] was suppose to come and see them today and change out equipment. She also stated that Dr. eDnton office is suppose to call back with an appointment time. I asked if she was aware of the follow up appointment needed for Pulmonology, she stated that she was not, I informed her that I would be calling them and seeing if the appointment was made. I also informed her that I would call HOME and Dr. Zambrano office and see when things will be scheduled. I called [facility] and due to the patient having COVID, they stated that the class b driver will call the patient when it is all clear for them to come out, that the equipment he has is fine for now. I called Dr. Zambrano office, they needed discharge info faxed over to them, I sent over what I could of the entire visit including DC. Waiting for them to call patient with F/U apt. They stated that they could possibly get him in with a nurse practitioner so they can get him in sooner, I asked the if that would work, she stated that that would be fine, informed her that once they get their info they will call them with an appointment. As for Pulmonology, they made the appointment for Aug 18 2020 at 2 PM. The [facility] made this appointment, the was fine with that. Spoke with the patient wie also about ways to keep her husbands immune system up which included eating correctly, following up with the doctors, keeping up to date with vaccinations, and avoiding stress. We also spoke about ways to prevent the spread such as social distancing, proper hand washing, avoiding touching the face, masking, sanitizing surfaces, making in public, avoiding hand shakes, avoiding company if possible and going into public unnecessarily. We also spoke of symptoms to watch for such as face and lips being blue, trouble waking or confusion, chest pain lasting longer then 5 minutes, fever of 104 or higher and trouble breathing and shortness of breath. Before ending the call we spoke about plasma donation, she would like information on this. I mailed out the information to her.
== END 2020-07-07 17:25 | disposition home or self-care (01) | DRG 177 ==
PROVIDERS: Internal Medicine; Internal Medicine Nephrology; Admitting Provider Internal Medicine; PCP Internal Medicine; Visit Provider Internal Medicine
DX: U07.1 COVID-19 (principal); N18.6 End stage renal disease; J12.89 Other viral pneumonia; I12.0 Hypertensive chronic kidney disease with stage 5 chronic kidney disease or end stage renal disease; L03.115 Cellulitis of right lower limb; M32.9 Systemic lupus erythematosus, unspecified; Z99.2 Dependence on renal dialysis; Z79.52 Long term (current) use of systemic steroids; D63.1 Anemia in chronic kidney disease; D69.6 Thrombocytopenia, unspecified; M32.14 Glomerular disease in systemic lupus erythematosus; Z92.21 Personal history of antineoplastic chemotherapy; R19.7 Diarrhea, unspecified
CPT/HCPCS: 12345; 36415; 71045; 80048; 80053; 83540; 83550; 83615; 84145; 85025; 85378; 85384; 86140; 90935; 93971; 96372; J1644; J3370; J7050; J8540; Q3014; Q4081

== ENCOUNTER 2020-11-04 14:27 | Outpatient (CLI) | payer MEDICARE, SELFPAY ==
--- NOTE | 2020-11-04 14:34 | XRR_ITS ---
PROCEDURE INFORMATION: Exam: XR Chest, 2 Views Exam date and time: 11/04/2020 2:42 PM Age: 60 years old Clinical indication: Shortness of breath; Prior surgery; Surgery type: Dialysis catheter; Additional info: Shortness of breath, high BP during dialysis treatments TECHNIQUE: Imaging protocol: XR of the chest Views: 2 views. COMPARISON: CR XR chest 1V portable [id number] 07/04/2020 2:32 PM FINDINGS: Tubes, catheters and devices: A right central line extends into the right atrium stable since prior Lungs: There is mild left lower lobe interstitial congestion. Prior examination showed parenchymal densities in the left lower lobe these findings have now resolved. Pleural spaces: Unremarkable. No pleural effusion. No pneumothorax. Heart/Mediastinum: Unremarkable. No cardiomegaly. Bones/joints: Unremarkable. XR/XR chest 2V* [id number] IMPRESSION: 1. Mild left lower lobe interstitial congestion 2. Otherwise No acute findings. 3. Right central line is in the right atrium
== END 2020-11-04 14:28 | disposition home or self-care (01) ==
LOC: RAD 14:30
PROVIDERS: PCP Internal Medicine; Visit Provider Internal Medicine Nephrology
DX: N18.6 End stage renal disease (principal); R06.02 Shortness of breath; R09.89 Other specified symptoms and signs involving the circulatory and respiratory systems
CPT/HCPCS: 71046

== ENCOUNTER 2021-05-19 11:31 | Outpatient (CLI) | payer MEDICARE, SELFPAY ==
[2021-05-19 14:10] LABS: Basophils % 0.8 %; Eosinophils # 0.1 10^3/uL (0.0-0.8); Eosinophils % 1.6 %; Hematocrit 31.9 % (42.0-52.0); Hemoglobin 10.6 g/dL (11.7-16.6); Lymphocytes # 1.3 10^3/uL (0.8-4.8); Mean Corpuscular HGB Conc 33.2 g/dL (30.0-36.0); Mean Corpuscular Hemoglobin 30.1 pg (28.0-34.0); Mean Corpuscular Volume 90.6 fl (80-94); Mean Platelet Volume 9.5 fL (7.4-10.4); Monocytes # 0.5 10^3/uL (0.2-0.9); Monocytes % 10.7 %; Neutrophils # 2.95 10^3/uL (1.8-7.7); Neutrophils % 60.5 %; Nucleated Red Blood Cells % 0 %; Platelet Count 114 10^3/cmm (130-400); Red Blood Count 3.52 10^6/uL (4.1-5.3); Red Cell Distribution Width 13.2 % (12.1-15.1); Reticulocyte % 1.4 % (0.5-2.0); White Blood Count 4.9 10^3/uL (4.0-10.0)
[2021-05-19 15:01] LABS: Alanine Aminotransferase 17 U/L (0-41); Albumin Level 3.6 g/dL (3.5-5.2); Alkaline Phosphatase 71 IU/L (40-130); Anion Gap 14.2 (5-19); Aspartate Amino Transferase 21 U/L (0-40); Blood Urea Nitrogen 42 mg/dL (6-20); CRP High Sensitivity Cardiac < 0.150 mg/dL (0.0-0.3); Calcium 8.7 mg/dL (8.5-10.5); Carbon Dioxide 23 mmol/L (22-29); Chloride 105 mmol/L (98-107); Globulin 2.9 g/dL (1.3-4.6); Glomerular Filtration Rate 10.1 mL/min (90-130); Glucose 100 mg/dL (65-115); Lactate Dehydrogenase 260 U/L (135-225); Osmolality Calculated 297 mOsm/kg (285-295); Potassium 4.2 mmol/L (3.5-5.1); Sodium 138 mmol/L (136-145); Thyroid Stimulating Hormone 0.83 uIU/mL (0.27-4.20); Total Bilirubin 0.2 mg/dL (0.15-1.2); Total Protein 6.5 g/dL (6.6-8.7); Vitamin B12 980 pg/mL (232-1245)
[2021-05-19 15:34] LABS: Erythrocyte Sedimentation Rate 47 mm/hr (0-10)
--- NOTE | 2021-05-19 18:50 | ONC CON_ITS ---
Dr. Couch New Patient Note Patient: Tyler Curiel Unit #: [id number]: 1960 Dicatated By: Joel Couch M.D.Date of Visit: May 19, 2021 Onc MED New Patient/Consult Referring Physician: Chief Complaint: Thrombocytopenia. History of Present Illness: This is a 61-year-old man with mild thrombocytopenia. He has a history of systemic lupus erythematosus, presenting in 2003 with malignant hypertension, renal failure, and congestive heart failure. He improved following a course of treatment with high-dose prednisone and monthly intravenous cyclophosphamide. He then had a long period of stability on treatment with hydroxychloroquine. However, in January 2020 he was found to have proteinuria and a significant increase in his serum creatinine to 3.7 mg/dL. He unfortunately went on to develop end-stage renal disease. He began on hemodialysis in May 2020. His further clinical course was complicated by hospitalization for COVID-19 virus pneumonia in June 2020. He recovered and he was then able to transition to home peritoneal dialysis in September 2020. He recently has been undergoing evaluation for possible renal transplant. This included a fairly extensive laboratory profile on 04/20/2021. His CBC at that time showed mild anemia with hemoglobin 10.9 g, white blood cell count 5300, and platelet count 91,000. The red cell indices were normal. His comprehensive metabolic profile showed BUN 46 and creatinine 6.41 mg/dL. The bilirubin and liver enzymes were normal. Albumin was in the low normal range at 3.4 g/dL. His serum iron was normal at 101 mcg/dL. His ferritin was elevated 1048 ng/mL. PSA was slightly elevated at 5.7 ng/mL. His records in [facility] include multiple CBCs dating back to June 2005. Several of these showed borderline low to mildly decreased platelet counts, but platelet counts were otherwise in normal range. More recent studies and October 2018, January 2020, in June 2020 all showed slightly low platelet counts ranging from 98,000-130,000. He says he feels good generally. He has energy, but it does not last long. His ECOG score is 1. He has good appetite. He has no fever or night sweats. He has not had mouth sores and he does not complain of sore throat or difficulty swallowing. He does get short of breath easily. He does not complain of cough and he has not been having chest pain. He has no GI complaints other than his bowel function tends to be somewhat variable. He still has urine output, and he says his bladder function has been okay. He has chronic pain attributable to fibromyalgia. He also has some joint pain, mainly in the shoulders and knees. He does not complain of headache. He occasionally has dizziness. He reports having tingling in his feet and he says his feet do not feel right. For the past year he has noted easy bruising and he also tends to bleed easily from minor cuts. Past Medical History: His medical history includes COVID-19 virus pneumonia, elevated PSA, end stage renal disease, fibromyalgia, hiistory of congestive heart failure, history of right lower extremity deep vein thrombosis, hyperlipidemia, hypertension, obstructive sleep apnea, and systemic lupus erythematosus. Past Surgical History: His surgical/procedural history includes placement of AV fistula in the left arm and placement of peritoneal dialysis catheter. Medications: amLODIPine Besylate (10 mg) Tablet Oral daily, Bumetanide (2 mg) Tablet Oral b.i.d., hydrALAZINE HCl 2 Tablet (of 100 mg) Oral t.i.d., Hydroxychloroquine Sulfate Tablet Oral, Metoprolol Tartrate (100 mg) Tablet Oral b.i.d. Allergies: Penicillins Social History: Mr. Curiel is . He is a non-smoker. He does not drink alcohol. Family History: Father has hypertension and arthritis. Mother has heart disease. One brother is in good health. Two sisters both have autoimmune problems . Review Of Symptoms: Constitutional - His energy is good, but it does not last long. He has good appetite. He has no fever or night sweats. ECOG score is 1, Eyes - No change in vision, ENMT - No hearing loss or tinnitus. No sinus congestion/drainage. No mouth sores. No sore throat or difficulty swallowing, Hematologic/Lymphatic - He bruises easily and he also bleeds easily with minor cuts, Respiratory - He does get short of breath easily. No cough. No pleuritic pain or hemoptysis, Cardiovascular - No angina pain. No palpitations, Gastrointestinal - No nausea or vomiting. No heartburn or acid reflux. Bowel function is variable, but adequate. No blood in the stool or black stools, Genitourinary (M) - He still has urine output. No dysuria or hematuria. No urinary frequency. He has nocturia x 3. No urgency or incontinence, Musculoskeletal - He has some chronic pain, attributable to fibromyalgia. He also has joint pain, mainly in the shoulders and knees, Integumentary - No skin rash or other skin changes, Neurologic - No headache. He occasionally has dizziness. He reports having tingling in his feet, and he says that his feet do not feel right. No other focal neurologic symptoms, Psychiatric - No anxiety. He does have a history of depression. No insomnia. Vital Signs: Performed on May 19, 2021 14:31: 3, 0, 36.00 (HIGH), 2.25 sq.m, 69 in, 96 %, 65 /min, 18 /min, 130/77 mm(hg), 98.2 F (LOW), and 243.8 lbs (HIGH). Physical Examination: Constitutional - He looks pretty good generally, Eyes - Sclerae nonicteric. Conjunctivae clear, ENMT - No lesions noted in the oral cavity, Neck - No mass or thyromegaly, Hematologic/Lymphatic - No cervical, clavicular, or axillary adenopathy, Respiratory - Lungs sound clear with good air movement bilaterally, Cardiovascular - Heart rhythm is regular. There is no murmur, gallop, or rub noted, Abdomen - Mildly distended but soft. Liver and spleen are not enlarged. There is no abdominal mass or ascites noted and there is no inguinal adenopathy, Back/Spine - No spine or CVA tenderness noted, Extremities - No edema. Pedal pulses are palpable bilaterally. There are a few scattered purpuric lesions, Integumentary - No rashes. No suspicious skin lesions noted, Neurologic - No focal neurologic deficits noted. Problem List: 1. Mild thrombocytopenia. 2. Systemic lupus erythematosus with associated lupus nephritis. 3. End-stage renal disease, currently on peritoneal dialysis. 4. Hypertension. 5. Hyperlipidemia. 6. Obstructive sleep apnea. 7. Fibromyalgia. 8. He has a history of right lower extremity deep vein thrombosis. 9. He had malignant hypertension and congestive heart failure at the initial presentation of his lupus nephritis in 2003. Problems Addressed with this Encounter and Plan: Patient with mild thrombocytopenia in association with lupus nephritis and end-stage renal disease. He is currently undergoing evaluation in preparation for possible renal transplant. The cause of the thrombocytopenia is uncertain, though it would most likely be autoimmune. His platelet counts have really not been low enough to be problematic. However, in the context of renal transplant it would be important to exclude a developing myelodysplastic syndrome as accurately has possible, particularly in view of the fact that he is also anemic. At least initially I will obtain additional laboratory studies to include CBC, comprehensive metabolic profile, sed rate and CRP, reticulocyte count, LDH and haptoglobin levels, TSH level, B12 level, serum protein electrophoresis, and serum free light chain assay. I also will review the blood smear. Ultimately, he may require bone marrow aspiration/biopsy, though I think the potential yield on that is going to be very low. Signed By: Joel Couch M.D. <<Signature on File>>
[2021-05-20 07:39] LABS: PROTEIN, TOTAL 5.9 g/dL (6.1-8.1)
[2021-05-20 12:56] LABS: ALBUMIN 3.4 g/dL (3.8-4.8); ALPHA 1 GLOBULIN 0.3 g/dL (0.2-0.3); ALPHA 2 GLOBULIN 0.6 g/dL (0.5-0.9); BETA 1 GLOBULIN 0.3 g/dL (0.4-0.6); BETA 2 GLOBULIN 0.3 g/dL (0.2-0.5)
[2021-05-20 23:57] LABS: LAB Peripheral Smear Sent for Review
== END 2021-05-19 11:32 | disposition home or self-care (01) ==
LOC: ONCMED 11:36
PROVIDERS: PCP Internal Medicine; Visit Provider Internal Medicine Medical Oncology
DX: D69.6 Thrombocytopenia, unspecified (principal); M32.19 Other organ or system involvement in systemic lupus erythematosus; N18.6 End stage renal disease; Z99.2 Dependence on renal dialysis; I12.0 Hypertensive chronic kidney disease with stage 5 chronic kidney disease or end stage renal disease; E78.5 Hyperlipidemia, unspecified; G47.33 Obstructive sleep apnea (adult) (pediatric); M79.7 Fibromyalgia; Z86.718 Personal history of other venous thrombosis and embolism; Z79.899 Other long term (current) drug therapy
CPT/HCPCS: 36415; 80053; 80500; 82607; 83010; 83615; 84155; 84165; 84443; 85025; 85045; 85651; 86141; 99205

== ENCOUNTER → 2021-05-20 09:20 | Outpatient (BNVA) | payer MEDICARE, SELFPAY | PROVIDERS: PCP Internal Medicine; Visit Provider Urology | DX: N18.6 End stage renal disease (principal); R97.20 Elevated prostate specific antigen [PSA] | CPT/HCPCS: 81003; 84153 ==

== ENCOUNTER 2021-08-22 08:35 | Outpatient (CLI) | payer MEDICARE, SELFPAY ==
[2021-08-22 09:49] LABS: Basophils # 0.1 10^3/uL (0.0-0.1); Basophils % 1.4 %; Eosinophils # 0.2 10^3/uL (0.0-0.8); Eosinophils % 4.9 %; Hematocrit 32.1 % (42.0-52.0); Hemoglobin 10.5 g/dL (11.7-16.6); Lymphocytes # 0.9 10^3/uL (0.8-4.8); Lymphocytes % 25.2 %; Mean Corpuscular HGB Conc 32.7 g/dL (30.0-36.0); Mean Corpuscular Hemoglobin 30.4 pg (28.0-34.0); Mean Platelet Volume 8.9 fL (7.4-10.4); Monocytes # 0.7 10^3/uL (0.2-0.9); Monocytes % 19.4 %; Neutrophils # 1.58 10^3/uL (1.8-7.7); Neutrophils % 45.9 %; Nucleated Red Blood Cells % 0 %; Platelet Count 94 10^3/cmm (130-400); Red Blood Count 3.45 10^6/uL (4.1-5.3); White Blood Count 3.5 10^3/uL (4.0-10.0)
[2021-08-22 09:56] LABS: Alanine Aminotransferase 22 U/L (0-41); Albumin Level 3.6 g/dL (3.5-5.2); Alkaline Phosphatase 80 IU/L (40-130); Anion Gap 18.8 (5-19); Aspartate Amino Transferase 29 U/L (0-40); Blood Urea Nitrogen 41 mg/dL (6-20); Calcium 8.4 mg/dL (8.5-10.5); Carbon Dioxide 23 mmol/L (22-29); Chloride 104 mmol/L (98-107); Globulin 2.6 g/dL (1.3-4.6); Glomerular Filtration Rate 7.8 mL/min (90-130); Glucose 86 mg/dL (65-115); Lactate Dehydrogenase 245 U/L (135-225); Osmolality Calculated 301 mOsm/kg (285-295); Potassium 4.8 mmol/L (3.5-5.1); Sodium 141 mmol/L (136-145); Total Bilirubin 0.2 mg/dL (0.15-1.2); Total Protein 6.2 g/dL (6.6-8.7)
[2021-08-22 11:04] LABS: Iron 34 ug/dL (59-158); Percent Saturation 18.9 % (20-50); Total Iron Binding Capacity 179 mcg/dl; Unsaturated Iron Binding 145 ug/dL (112-347)
--- NOTE | 2021-08-22 18:13 | ONC FU_ITS ---
Dr. Couch Patient Follow-Up Note Patient: Tyler Curiel Unit #: [id number]: 1960 Dicatated By: Joel Couch M.D.Date of Visit:Aug 22, 2021 Onc Med Follow-up/Prog Note Chief Complaint: Thrombocytopenia. History of Present Illness: This is a 61-year-old man with mild thrombocytopenia. He has a history of systemic lupus erythematosus, presenting in 2003 with malignant hypertension, renal failure, and congestive heart failure. He improved following a course of treatment with high-dose prednisone and monthly intravenous cyclophosphamide. He then had a long period of stability on treatment with hydroxychloroquine. However, in January 2020 he was found to have proteinuria and a significant increase in his serum creatinine to 3.7 mg/dL. He unfortunately went on to develop end-stage renal disease. He began on hemodialysis in May 2020. His further clinical course was complicated by hospitalization for COVID-19 virus pneumonia in June 2020. He recovered and he was then able to transition to home peritoneal dialysis in September 2020. He recently has been undergoing evaluation for possible renal transplant. This included a fairly extensive laboratory profile on 04/20/2021. His CBC at that time showed mild anemia with hemoglobin 10.9 g, white blood cell count 5300, and platelet count 91,000. The red cell indices were normal. His comprehensive metabolic profile showed BUN 46 and creatinine 6.41 mg/dL. The bilirubin and liver enzymes were normal. Albumin was in the low normal range at 3.4 g/dL. His serum iron was normal at 101 mcg/dL. His ferritin was elevated 1048 ng/mL. PSA was slightly elevated at 5.7 ng/mL. His records in [facility] include multiple CBCs dating back to June 2005. Several of these showed borderline low to mildly decreased platelet counts, but platelet counts were otherwise in normal range. More recent studies and October 2018, January 2020, in June 2020 all showed slightly low platelet counts ranging from 98,000-130,000. I had seen for a pretransplant evaluation on 05/19/2021. He had mild stable thrombocytopenia and he was also mildly anemic. By clinical evaluation and in the context of his end-stage renal disease, it did not appear to represent a contraindication to undergoing renal transplant. He is seen for a follow-up visit. He had a recent follow-up at [facility], and he apparently has been cleared to proceed with transplant. He says he has been feeling fairly good generally, though he has developed shingles in the left side of his abdomen and back. He has been feeling a little weak and he does have limited activity. He is able to do light work, though he require rest periods. His ECOG score is 1. He has good appetite. He has no fever or night sweats. He recently had antibiotic for sinus infection. He has not had sore mouth or throat. He does not complain of cough, and he has not been having shortness of breath or chest pain. He has no GI complaints other than constipation, which is adequately managed with MiraLAX. He still has urine output, and his bladder function has been okay. He has a lot of back pain, and he also has some joint pain, mainly in the elbows and arms. He does not complain of headache. He does have some dizziness and he also complains of having numbness in his feet. He has not had abnormal bruising or bleeding. Medications: amLODIPine Besylate (10 mg) Tablet Oral daily, Bumetanide (2 mg) Tablet Oral b.i.d., hydrALAZINE HCl 2 Tablet (of 100 mg) Oral t.i.d., Hydroxychloroquine Sulfate Tablet Oral, Metoprolol Tartrate (100 mg) Tablet Oral b.i.d. Allergies: Penicillins Vital Signs: Performed on Aug 22, 2021 12:09 Height - 69.00 in Weight - 243.6 lbs (LOW) BSA - 2.25 sq.m BMI - 35.97 (HIGH) Temperature - 98.2 F (LOW) Pulse - 74 /min Respiration - 18 /min BP - 142/81 mm(hg) (HIGH) O2 Sat - 98 % Pain - 8 Fatigue - 5 Physical Examination: Constitutional - He looks pretty good generally, Eyes - Sclerae nonicteric. Conjunctivae clear, ENMT - No lesions noted in the oral cavity, Hematologic/Lymphatic - No cervical, clavicular, or axillary adenopathy, Respiratory - Lungs sound clear with good air movement bilaterally, Cardiovascular - Heart rhythm is regular. There is no murmur, gallop, or rub noted, Abdomen - Moderately distended. Liver and spleen are not enlarged. There is no abdominal mass or ascites noted and there is no inguinal adenopathy, Extremities - No edema. There are just a few, small, scattered purpuric lesions, Integumentary - He has very obvious and prominent herpes zoster eruption in the mid abdomen on the left side extending around to the back, Neurologic - No focal neurologic deficits noted. Lab/Imaging: Test performed on Aug 22, 2021 08:50 Iron 34 mcg/dL LDH (Total) 245 U/L Sodium 141 mmol/L Iron Binding Capacity (TIBC) 179 mcg/dl Potassium 4.8 mmol/L % Iron Saturation 18.9 % Chloride 104 mmol/L CO2 23 mmol/L UIBC 145 mcg/dL Anion Gap 18.8 BUN 41 mg/dL Creatinine 7.2 mg/dL Cr Clearance (Est) 17.27 mL/min eGFR 7.8 mL/min Glucose 86 mg/dL Osmolality - Calculated 301 mOsm/kg Calcium 8.4 mg/dL Protein, Total 6.2 g/dL Albumin 3.6 g/dL Globulin 2.6 g/dL Bilirubin, Total 0.2 mg/dL ALT (SGPT) 22 U/L AST (SGOT) 29 U/L Alkaline Phosphatase 80 IU/L WBC 3.5 10 3/uL RBC 3.45 10 6/uL HGB 10.5 g/dL HCT 32.1 % MCV 93.0 fl MCH 30.4 pg MCHC 32.7 g/dL RDW 13.0 % Platelet Count 94 10 3/cmm MPV 8.9 fL Neutrophils 1.58 10 3/uL Lymphocytes 0.9 10 3/uL Monocytes 0.7 10 3/uL Eosinophils 0.2 10 3/uL Basophils 0.1 10 3/uL Neutrophil % 45.9 % Lymphocyte % 25.2 % Monocyte % 19.4 % Eosinophil % 4.9 % Basophils % 1.4 % NRBC % 0 % Problem List: 1. Mild thrombocytopenia. 2. Systemic lupus erythematosus with associated lupus nephritis. 3. End-stage renal disease, currently on peritoneal dialysis. 4. Hypertension. 5. Hyperlipidemia. 6. Obstructive sleep apnea. 7. Fibromyalgia. 8. He has a history of right lower extremity deep vein thrombosis. 9. He had malignant hypertension and congestive heart failure at the initial presentation of his lupus nephritis in 2003. Problems Addressed with this Encounter and Plan: 1. Patient with mild thrombocytopenia in association with lupus nephritis and end-stage renal disease. He has undergone evaluation in preparation for possible renal transplant. The cause of the thrombocytopenia has been uncertain, though it appeared to most likely be autoimmune. It is of fairly long standing duration and without significant progression. In the context of a potential renal transplant, the main concern would be the possibility of developing myelodysplastic syndrome. By clinical evaluation, this appears to be very unlikely. However, with his white blood cell count also being mildly decreased he does require ongoing monitoring, and if there is a significant further decline in any of his blood counts he will be recommended to undergo bone marrow aspiration/biopsy. He is scheduled to see Dr. Black in September, I will tentatively plan to see him for follow-up in 3 months. 2. He has an obvious and fairly prominent herpes zoster eruption in the left side of the abdomen and back. He will be given a prescription for Valtrex 1000 mg 3 times daily for 7 days. Signed By: Joel Couch M.D. <<Signature on File>>
[2021-08-23 15:42] LABS: Erythropoietin 24.3 mIU/mL (2.6-18.5)
[2021-08-24 12:00] LABS: Erythrocyte Sedimentation Rate 43 mm/hr (0-10)
== END 2021-08-22 08:36 | disposition home or self-care (01) ==
PROVIDERS: PCP Internal Medicine; Visit Provider Internal Medicine Medical Oncology
DX: D69.6 Thrombocytopenia, unspecified (principal); M32.14 Glomerular disease in systemic lupus erythematosus; N18.6 End stage renal disease; Z99.2 Dependence on renal dialysis; I12.0 Hypertensive chronic kidney disease with stage 5 chronic kidney disease or end stage renal disease; E78.5 Hyperlipidemia, unspecified; G47.33 Obstructive sleep apnea (adult) (pediatric); M79.7 Fibromyalgia; Z86.718 Personal history of other venous thrombosis and embolism; Z86.79 Personal history of other diseases of the circulatory system; Z79.899 Other long term (current) drug therapy
CPT/HCPCS: 36415; 80053; 82668; 83540; 83550; 83615; 85025; 85651; 99214

== ENCOUNTER → 2021-09-15 14:35 | Outpatient (BNVA) | payer MEDICARE, SELFPAY | PROVIDERS: PCP Internal Medicine; Visit Provider Surgery | DX: Z86.010 Personal history of colon polyps (principal) | CPT/HCPCS: 87635 ==

== ENCOUNTER 2021-09-30 08:04 | Outpatient (CLI) | payer MEDICARE, SELFPAY ==
[2021-09-30 08:46] LABS: Basophils # 0.1 10^3/uL (0.0-0.1); Basophils % 1.3 %; Eosinophils # 0.1 10^3/uL (0.0-0.8); Eosinophils % 2.5 %; Hematocrit 36.3 % (42.0-52.0); Hemoglobin 11.8 g/dL (11.7-16.6); Lymphocytes # 1.4 10^3/uL (0.8-4.8); Mean Corpuscular HGB Conc 32.5 g/dL (30.0-36.0); Mean Corpuscular Hemoglobin 30.4 pg (28.0-34.0); Mean Corpuscular Volume 93.6 fl (80-94); Mean Platelet Volume 9.6 fL (7.4-10.4); Monocytes # 0.6 10^3/uL (0.2-0.9); Monocytes % 11.2 %; Neutrophils # 2.97 10^3/uL (1.8-7.7); Neutrophils % 57.2 %; Nucleated Red Blood Cells % 0 %; Platelet Count 100 10^3/cmm (130-400); Red Blood Count 3.88 10^6/uL (4.1-5.3); Red Cell Distribution Width 13.6 % (12.1-15.1); White Blood Count 5.2 10^3/uL (4.0-10.0)
[2021-09-30 09:02] LABS: Iron 75 ug/dL (59-158); Percent Saturation 30.8 % (20-50); Total Iron Binding Capacity 243 mcg/dl; Unsaturated Iron Binding 168 ug/dL (112-347)
[2021-09-30 09:27] LABS: D Dimer 0.64 ug/mIFEU (0-0.59); INR 0.99 (0.8-1.2); Partial Thromboplastin Time 27.2 SECONDS (23.9-36.7)
[2021-10-04 13:12] LABS: Beta 2 Glycoprotein IGA 12.8 U/mL (<20.0); Beta 2 Glycoprotein IGG <2.0 U/mL (<20.0); Beta 2 Glycoprotein IGM <2.0 U/mL (<20.0)
[2021-10-05 10:52] LABS: Anti-Cardiolipin IgA AB 15.3 APL-U/mL
== END 2021-09-30 08:05 | disposition home or self-care (01) ==
LOC: ONCMED 08:08
PROVIDERS: PCP Internal Medicine; Visit Provider Internal Medicine Medical Oncology
DX: D69.6 Thrombocytopenia, unspecified (principal); M32.14 Glomerular disease in systemic lupus erythematosus; I12.0 Hypertensive chronic kidney disease with stage 5 chronic kidney disease or end stage renal disease; N18.6 End stage renal disease; Z99.2 Dependence on renal dialysis; E78.5 Hyperlipidemia, unspecified; G47.33 Obstructive sleep apnea (adult) (pediatric); M79.7 Fibromyalgia
CPT/HCPCS: 36415; 83540; 83550; 85025; 85378; 85610; 85730; 86146; 86147; 87635

== ENCOUNTER 2021-10-05 06:44 | Day surgery (SDC) | payer MEDICARE, MEDICAID, SELFPAY ==
[2021-09-13 13:54] VITALS: BMI 35.4
--- NOTE | 2021-10-05 07:07 | ANES.PREANE2 ---
Pre-Anesthetic Assessment Pre-Anesthetic Assessment: Height/Weight: Height 1.75 m Weight 108.862 kg Preop Diagnosis: diagnostic Proposed Procedure: Operation Date: 10/05/21 08:00 Proposed Procedures p Colonoscopy 80348 Z86.010(Not Applicable) - Ted Bobo MD Was Beta Zee taken within 24 hours: Yes Was Clonidine taken within 24 hours: N/A Social: Social History: No alcohol and No tobacco Exam: Pre-Anes Outpt Exam: alert, oriented x 3, clear to auscultation bilaterally and regular rate & rhythm Airway: Submandibular: WNL Cervical ROM: WNL MP: 2 Dentition: Chipped Additional comments: Some missing CV/HEM: CV/HEM: HTN : : Chronic renal failure Comments: PD dialysis GI: GI: GERD Metabolic: Comments: SLE Anesthetic Plan: ASA status: 3 Anesthesia: MAC Risk of > 500 ml blood loss (7ml/kg in children): No PFSH Anesthesia PFSH: Medical History (Updated 08/26/21 @ 16:36 by Ted Bobo MD) Anemia Colon polyps ESRD (end stage renal disease) HTN (hypertension) Hypertension Inflammatory arthritis Lupus nephritis Systemic lupus erythematosus Surgical History (Updated 08/26/21 @ 11:55 by Ted Bobo MD) AV fistula History of colonoscopy had 2 last one was 2014 History of umbilical hernia repair Peritoneal dialysis catheter in situ S/P dialysis catheter insertion Family History Father Hypertension Mother CAD (coronary artery disease) Other Cancer Social History Smoking risk assessment/counseling performed?: Yes Alcohol intake: never Marital status: Current occupational status: disabled History of recent travel: No Data Anesthesia Cardiac Studies: No Data to Display
[2021-10-05 07:23] VITALS: BP 127/83; PULSE 56; RESP 16; TEMP 36.3; O2SAT 98
[2021-10-05] MEDS: sodium chloride 0.9% 1,000 ML 30 ML IV (07:28)
--- NOTE | 2021-10-05 08:27 | W.PM.OPSFHP ---
Same Day Surgery H&P Indication for Procedure/HPI DATE OF PROCEDURE: October 05, 2021 CHIEF COMPLAINT/INDICATIONFOR SURGICAL PROCEDURE: colon polyps PREOP DIAGNOSIS: diagnostic PLANNED PROCEDURE: Operation Date: 10/05/21 08:00 Proposed Procedures p Colonoscopy 52380 Z86.010(Not Applicable) - Ted Bobo MD Medications/Allergies* Home Medications Medication Instructions Recorded Confirmed Type amlodipine 10 mg PO DAILY 02/09/20 10/03/21 History RenaPlex-D 1 tab PO QPM 07/03/20 10/03/21 History bumetanide 2 mg PO BID 07/03/20 10/03/21 History metoprolol tartrate 50 mg tablet 50 mg PO BID tab 08/11/20 10/03/21 History doxazosin 4 mg tablet 4 mg PO DAILY 05/20/21 10/03/21 History hydroxychloroquine 200 mg tablet 200 mg PO BID 05/20/21 10/03/21 History gabapentin 200 mg PO BEDTIME 09/13/21 10/03/21 History lansoprazole 30 mg PO DAILY 09/13/21 10/03/21 History losartan 50 mg PO BID 09/13/21 10/03/21 History Allergies/Adverse Reactions Allergy/AdvReac Type Severity Reaction Status Date / Time Penicillins AdvReac rash Verified 10/05/21 07:22 Current Medications: Generic Name Dose Route Start Last Admin Trade Name Freq PRN Reason Stop Dose Admin Sodium Chloride 1,000 mls @ 30 mls/hr 10/05/21 07:00 10/05/21 07:28 Sodium Chloride 0.9% IV 10/06/21 06:59 30 mls/hr .Q24H MEDHAT Administration Pertinent History/Comorbid Conditions* Medical History (Updated 08/26/21 @ 16:36 by Ted Bobo MD) Anemia Colon polyps ESRD (end stage renal disease) HTN (hypertension) Hypertension Inflammatory arthritis Lupus nephritis Systemic lupus erythematosus Surgical History (Updated 08/26/21 @ 11:55 by Ted Bobo MD) AV fistula History of colonoscopy had 2 last one was 2014 History of umbilical hernia repair Peritoneal dialysis catheter in situ S/P dialysis catheter insertion Family History (Updated 05/20/21 @ 09:26 by BINTA Daniel) CAD (coronary artery disease) Mother Cancer Hypertension Father Social History Smoking risk assessment/counseling performed?: Yes Alcohol intake: never Marital status: Current occupational status: disabled History of recent travel: No Pertinent Exam Findings alert, oriented x 3 and regular rate & rhythm Recommendations Surgery/Procedure today Coding Level of Care Code Acute Mixing Machine Feeder for Padmini Sr
[2021-10-05 09:00] VITALS: BP 101/57; PULSE 58; RESP 16; TEMP 36.3; O2SAT 97
[2021-10-05 09:14] VITALS: BP 123/62; PULSE 57; RESP 18; O2SAT 97
--- NOTE | 2021-10-05 14:10 | ANE.PACU2 ---
Inpatient post-anesthesia follow up: Airway intact: Yes Vital signs: Temperature 97.3 F Pulse Rate 57 Respiratory Rate 18 Blood Pressure 123/62 Pulse Oximetry 97 Oxygen Delivery Me thod Room Air Oxygen Flow Rate Fraction of Inspir ed Oxygen Hydration adequate: Yes Nausea and vomiting: No Pain level: 1 Mental status: Baseline
== END 2021-10-05 09:28 | disposition home or self-care (01) ==
PROVIDERS: PCP Internal Medicine; Visit Provider Surgery
PROC: 0DJD8ZZ Inspection of Lower Intestinal Tract, Via Natural or Artificial Opening Endoscopic (ICD-10-PCS; CPT 45378; principal; 2021-10-05 08:00)
DX: Z86.010 Personal history of colon polyps (principal); I12.0 Hypertensive chronic kidney disease with stage 5 chronic kidney disease or end stage renal disease; N18.6 End stage renal disease; Z82.49 Family history of ischemic heart disease and other diseases of the circulatory system; Z99.2 Dependence on renal dialysis; K57.30 Diverticulosis of large intestine without perforation or abscess without bleeding; K64.8 Other hemorrhoids; K63.5 Polyp of colon
CPT/HCPCS: 45385; 88305; J2704; J7030

== ENCOUNTER 2021-10-11 09:22 | Outpatient (CLI) | payer MEDICARE, MEDICAID, SELFPAY ==
[2021-10-14 06:52] LABS: CARDIOLIPIN AB (IGA) 11.5 APL-U/mL; CARDIOLIPIN AB (IGG) <2.0 GPL-U/mL; CARDIOLIPIN AB (IGM) <2.0 MPL-U/mL
== END 2021-10-11 09:23 | disposition home or self-care (01) ==
PROVIDERS: PCP Internal Medicine; Visit Provider Internal Medicine Medical Oncology
DX: D69.6 Thrombocytopenia, unspecified (principal)
CPT/HCPCS: 36415; 86147

== ENCOUNTER 2021-11-03 17:51 | Emergency (ER) | payer MEDICARE, MEDICAID, SELFPAY ==
[2021-11-03 17:56] VITALS: BP 149/78; PULSE 75; RESP 18; TEMP 36.8; O2SAT 99; BMI 34.7
--- NOTE | 2021-11-03 18:15 | XRR_ITS ---
PROCEDURE INFORMATION: Exam: XR Left Knee Exam date and time: 11/03/2021 6:15 PM Age: 61 years old Clinical indication: Pain; Knee; Left; Additional info: Knee pain, twisted knee today and felt a pop TECHNIQUE: Imaging protocol: XR Left knee. Views: 3 views. 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 Soft tissues: Normal. 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
--- NOTE | 2021-11-03 18:15 | ED_ITS ---
HPI - Extremity Problem General: Chief complaint: Extremity Injury, Lower Stated complaint: Injury Left Knee Time Seen by Provider: 11/03/21 18:02 History of Present Illness: Patient is a 61-year-old male comes to the ED with left knee injury. Injured knee earlier today. He was carrying objects and then turned his body to place it on a trailer and felt a pop in his left knee. He now has pain in his left knee with any range of motion and with weightbearing. Pain is currently a 4 out of 10 but it increases greatly when he is doing any weightbearing or movement on it. Associated symptoms: Deny chest pain, fever(s) or rash Review of Systems Const: Denies: fever(s), chills or fatigue Eyes: Denies: change in vision or eye discomfort ENMT: Denies: throat pain, odynophagia, nasal discharge or nasal congestion Card: Denies: chest pain, palpitations, edema, swelling of feet/ankles, dyspnea on exertion or orthopnea Resp: Denies: dyspnea, productive cough or non-productive cough GI: Denies: abdominal pain, nausea, vomiting, diarrhea, constipation or hematochezia : Denies: flank pain, difficulty urinating, dysuria or hematuria Musc: Reports: extremity pain (Left knee) and limited range of motion (Left knee); Denies: neck pain, back pain or extremity swelling Skin/Breast: Denies: rash or new lesions Neuro: Denies: headache(s), numbness in extremities or weakness in extremities PFSH ED PFSH: Medical History Anemia Colon polyps ESRD (end stage renal disease) HTN (hypertension) Hypertension Inflammatory arthritis Lupus nephritis Systemic lupus erythematosus Surgical History AV fistula History of colonoscopy had 2 last one was 2014 History of colonoscopy with polypectomy (10/05/21) History of umbilical hernia repair Peritoneal dialysis catheter in situ S/P dialysis catheter insertion Family History Father Hypertension Mother CAD (coronary artery disease) Other Cancer Social History Smoking and tobacco status: never smoked Smoking risk assessment/counseling performed?: Yes Alcohol intake: never Marital status: Current occupational status: disabled History of recent travel: No Physical Exam Const: COMMON NORMALS: no acute distress, patient oriented x3 and alert GENERAL APPEARANCE: cooperative and comfortable HENMT: COMMON NORMALS: normocephalic HEAD & SCALP: normocephalic MOUTH: Normal oral and palatal mucosa present THROAT: posterior oropharynx normal and uvula midline Neck/C-Spine: COMMON NORMALS: supple GENERAL: Yes normal visual inspection Resp: COMMON NORMALS: normal respiratory effort, No retractions, No use of accessory muscles and clear to auscultation bilaterally AUSCULTATION: clear to auscultation bilaterally Cardio: COMMON NORMALS: regular rate, regular rhythm, S1 normal heart sound present, S2 normal heart sound present, No gallops present (Cardio), No clicks present (Cardio), No murmurs present (Cardio) and Peripheral pulses 2+ throughout RATE: regular rate RHYTHM: regular rhythm HEART SOUNDS: S1 normal heart sound present and S2 normal heart sound present PERIPHERAL PULSES: Peripheral pulses 2+ throughout GI: COMMON NORMALS: Normal to inspection, nondistended, normoactive bowel sounds present, Soft to palpation, non-tender and no masses PALPATION: Yes Soft to palpation : COMMON NORMALS: Yes no CVA tenderness BLADDER/KIDNEY EXAM: Yes no CVA tenderness Back/Pelvis: COMMON NORMALS: no CVA tenderness Extremity: LEFT LOWER EXTREMITY: Yes knee joint Left knee: Yes inspection (No visible deformity, ecchymosis or swelling seen.), Yes palpation (Tenderness over posterior and medial aspect of knee), Yes ROM (Has full range of motion but endorses pain) and Yes neurovascular exam (Intact) Neuro: COMMON NORMALS: patient oriented x3 SENSORIUM/ORIENTATION: Yes alert Skin: GENERAL SKIN EXAM: dry skin Course Vital Signs: Vital signs: Vital Signs Temperature 98.2 F 11/03/21 17:56 Pulse Rate 75 11/03/21 17:56 Respiratory Rate 18 11/03/21 17:56 Blood Pressure 149/78 11/03/21 17:56 Pulse Oximetry 99 11/03/21 17:56 MDM - Extremity (Nontraumatic) Medical Decision Making Patient is a 61-year-old male comes to the ED with a left knee injury. Earlier today he twisted and felt his left knee pop and now has pain with weightbearing and range of motion. Vitals are stable. Patient appears in no acute distress or pain. He endorses having some pain with range of motion. Tenderness over posterior and medial aspect of left knee. Neurovascular intact. X-ray of left knee shows a chronic nonfusion of tibial tubercle. No other acute findings noted. Patient was put in a knee immobilizer and discharged with crutches. I also sent home with a prescription for hydrocodone for pain. I placed order with case management for patient to be referred to Ortho for further evaluation of knee pain. Return to ED precautions given. Patient understood and agree with plan. 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 Discharge Plan Discharge Patient Disposition: Home Clinical Impression: Injury of knee, left Qualifiers: Encounter type: initial encounter Qualified Code(s): S89.92XA - Unspecified injury of left lower leg, initial encounter Condition: Stable Prescriptions: No Action doxazosin 4 mg tablet 4 mg PO DAILY 0RF hydroxychloroquine [Plaquenil] 200 mg tablet 200 mg PO BID 0RF amlodipine 10 mg tablet 10 mg PO DAILY 0RF metoprolol tartrate 50 mg tablet 50 mg PO BID 0RF bumetanide 2 mg tablet 2 mg PO BID 0RF RenaPlex-D 800 mcg-12.5 mg -2,000 unit tablet 1 tab PO QPM 0RF losartan 50 mg Tablet 50 mg PO BID 0RF lansoprazole 30 mg Capsule,Delayed Release(Dr/Ec) 30 mg PO DAILY 0RF gabapentin 100 mg Capsule 200 mg PO BEDTIME 0RF Discharge Orders: Discharge ED (Routine); Ordered 11/03/21 Ordered By: Herrera Denney Referrals: Neva Black MD [Primary Care Provider] - Discharge Diet: Regular Discharge Activity: Limit activity as instructed and Use walker/crutches as instructed Patient Instructions: Knee Pain (ED), Opioid Safety Activity Restrictions/Additional Instructions: Follow-up with medical provider as directed. Case management should be contacting you in the next several days set up an appoint with orthopedic for follow-up. Take medications as prescribed. Rest, ice and elevate left knee as well. Return to the ER or your medical provider if condition worsens. Please read and understand discharge instructions. Thank you for choosing [facility] for your healthcare needs today. Please realize this is an emergency room and that we are providing you with a medical screening exam and this may not be complete and all inclusive of all the testing and or work up that you may need to determine your ailment or severity of your illness. It is very important that you follow up as instructed or that you return to the Emergency Department should you have concerns or if your condition changes or worsens in any way. Coding Level of Care Code ED Survey Research Manager for Chg Fwd Exam Detailed
[2021-11-03] MEDS: HYDROcodone-acetaminophen 7.5-325 mg Tablet 1 TAB PO (18:27)
--- NOTE | 2021-11-04 10:34 | DCPLANNER ---
Addendum entered by Nery Ortega 12/09/21 12:07: Patient had a follow up appointment scheduled for 11.21.[address] Navas at ortho - patient did attend appointment. Addendum entered by Nery Ortega 11/11/21 14:47: Patient has a follow up appointment scheduled for Sunday, November 21, 2021 at 8;[address] Navas. Clinic will call patient with appointment information. Original Note: change manager had message to schedule a follow up appointment for patient with ortho. change manager called the ortho clinic, spoke with Yumiko, gave clinic patients information. change manager was told that patients information would be printed and reviewed. Clinic will call patient with appointment information.
== END 2021-11-03 19:33 | disposition home or self-care (01) ==
PROVIDERS: Emergency Provider Physician Assistant; PCP Internal Medicine
DX: S89.92XA Unspecified injury of left lower leg, initial encounter (principal); I12.0 Hypertensive chronic kidney disease with stage 5 chronic kidney disease or end stage renal disease; N18.6 End stage renal disease; M32.9 Systemic lupus erythematosus, unspecified; X50.1XXA Overexertion from prolonged static or awkward postures, initial encounter
CPT/HCPCS: 29530; 73562; 99283

== ENCOUNTER → 2021-11-21 08:49 | Outpatient (BNVA) | payer MEDICARE, MEDICAID, SELFPAY | PROVIDERS: PCP Internal Medicine; Visit Provider Specialist | DX: M25.462 Effusion, left knee (principal); M92.522 Juvenile osteochondrosis of tibia tubercle, left leg | CPT/HCPCS: 73560; 73565 ==

== ENCOUNTER 2021-11-23 10:53 | Outpatient (CLI) | payer MEDICARE, MEDICAID, SELFPAY ==
[2021-11-23 11:26] LABS: Basophils % 0.8 %; Eosinophils # 0.2 10^3/uL (0.0-0.8); Eosinophils % 3.9 %; Hematocrit 33.8 % (42.0-52.0); Hemoglobin 11.2 g/dL (11.7-16.6); Lymphocytes # 1.3 10^3/uL (0.8-4.8); Lymphocytes % 27.3 %; Mean Corpuscular HGB Conc 33.1 g/dL (30.0-36.0); Mean Corpuscular Hemoglobin 30.4 pg (28.0-34.0); Mean Corpuscular Volume 91.6 fl (80-94); Mean Platelet Volume 9.3 fL (7.4-10.4); Monocytes # 0.5 10^3/uL (0.2-0.9); Monocytes % 10.3 %; Neutrophils # 2.77 10^3/uL (1.8-7.7); Neutrophils % 57.3 %; Nucleated Red Blood Cells % 0 %; Platelet Count 105 10^3/cmm (130-400); Red Blood Count 3.69 10^6/uL (4.1-5.3); Red Cell Distribution Width 13.2 % (12.1-15.1); White Blood Count 4.8 10^3/uL (4.0-10.0)
[2021-11-23 11:56] LABS: Albumin Level 3.9 g/dL (3.5-5.2); Alkaline Phosphatase 107 IU/L (40-130); Anion Gap 13.9 (5-19); Aspartate Amino Transferase 27 U/L (0-40); Blood Urea Nitrogen 42 mg/dL (6-20); Calcium 9.2 mg/dL (8.5-10.5); Carbon Dioxide 24 mmol/L (22-29); Chloride 104 mmol/L (98-107); Globulin 2.8 g/dL (1.3-4.6); Glomerular Filtration Rate 13.1 mL/min (90-130); Glucose 101 mg/dL (65-115); Osmolality Calculated 295 mOsm/kg (285-295); Potassium 4.9 mmol/L (3.5-5.1); Sodium 137 mmol/L (136-145); Total Bilirubin 0.3 mg/dL (0.15-1.2); Total Protein 6.7 g/dL (6.6-8.7)
[2021-11-23 12:33] LABS: Alanine Aminotransferase 19 U/L (0-41); Lactate Dehydrogenase 217 U/L (135-225)
--- NOTE | 2021-11-26 11:50 | ONC FU_ITS ---
Dr. Couch Patient Follow-Up Note Patient: Tyler Curiel Unit #: [id number]: 1960 Dicatated By: Joel Couch M.D.Date of Visit:Nov 23, 2021 Onc Med Follow-up/Prog Note Chief Complaint: Thrombocytopenia. History of Present Illness: This is a 61-year-old man with mild thrombocytopenia. He has a history of systemic lupus erythematosus, presenting in 2003 with malignant hypertension, renal failure, and congestive heart failure. He improved following a course of treatment with high-dose prednisone and monthly intravenous cyclophosphamide. He then had a long period of stability on treatment with hydroxychloroquine. However, in January 2020 he was found to have proteinuria and a significant increase in his serum creatinine to 3.7 mg/dL. He unfortunately went on to develop end-stage renal disease. He began on hemodialysis in May 2020. His further clinical course was complicated by hospitalization for COVID-19 virus pneumonia in June 2020. He recovered and he was then able to transition to home peritoneal dialysis in September 2020. He then began evaluation for possible renal transplant. This included a fairly extensive laboratory profile on 04/20/2021. His CBC at that time showed mild anemia with hemoglobin 10.9 g, white blood cell count 5300, and platelet count 91,000. The red cell indices were normal. His comprehensive metabolic profile showed BUN 46 and creatinine 6.41 mg/dL. The bilirubin and liver enzymes were normal. Albumin was in the low normal range at 3.4 g/dL. His serum iron was normal at 101 mcg/dL. His ferritin was elevated 1048 ng/mL. PSA was slightly elevated at 5.7 ng/mL. I had seen for a pretransplant evaluation on 05/19/2021. He had mild stable thrombocytopenia and he was also mildly anemic. His records in [facility] include multiple CBCs dating back to June 2005. Several of these had shown borderline low to mildly decreased platelet counts, but platelet counts were otherwise in normal range. More recent studies in October 2018, January 2020, in June 2020 all showed slightly low platelet counts ranging from 98,000-130,000. By clinical evaluation and in the context of his end-stage renal disease, it did not appear to represent a contraindication to undergoing renal transplant. He had a subsequent follow-up at [facility], and he was then cleared to proceed with renal transplant. I was contacted in regard to recommendations for his perioperative anticoagulation, mainly because of the reported positive anticardiolipin antibody study. I was never able to actually confirm that result. A prior anticardiolipin antibody profile in July 2009 was negative for IgG, IgA, and IgM anticardiolipin antibodies. As a precaution, in September I did repeat the anticardiolipin antibody profile and also checked a beta-2 glycoprotein I antibody profile, and they were both negative. He is seen for a follow-up visit. He has been feeling pretty good generally. His main complaint is that his activity recently has been limited due to a left knee injury. He was seen in the emergency room for it, he will now be having further evaluation at the orthopedic clinic. He still has significant knee pain with every step, but he says it is getting better. He has good appetite. He does not have fever or night sweats. He has not had sore mouth or throat. He does not complain of cough, and he has not been having shortness of breath or chest pain. He occasionally gets nauseated. Bowel function remains adequate with MiraLAX. He still has urine output, and he has no complaints with bladder function. He has no other joint or bone pain. He does not complain of headache. He occasionally has dizziness. He has some numbness in his feet. Medications: amLODIPine Besylate (10 mg) Tablet Oral daily, Bumetanide (2 mg) Tablet Oral b.i.d., Cozaar 1 Tablet (of 50 mg) Oral b.i.d., Doxazosin Mesylate 1 Tablet (of 4 mg) Oral b.i.d., Gabapentin 2 Capsule (of 100 mg) Oral at bedtime, Hydroxychloroquine Sulfate Tablet Oral, Lansoprazole 1 Capsule (of 30 mg) Capsule Delayed Release Oral daily, Metoprolol Tartrate (100 mg) Tablet Oral b.i.d. Allergies: Penicillins Vital Signs: Performed on Nov 23, 2021 13:04 Height - 69.00 in Weight - 248.0 lbs (HIGH) BSA - 2.26 sq.m BMI - 36.62 (HIGH) Temperature - 98.8 F Pulse - 74 /min Respiration - 18 /min BP - 136/71 mm(hg) O2 Sat - 93 % (LOW) Pain - 0 Fatigue - 5 Physical Examination: Constitutional - He looks pretty good generally, Eyes - Sclerae nonicteric. Conjunctivae clear, ENMT - No lesions noted in the oral cavity, Hematologic/Lymphatic - No cervical, clavicular, or axillary adenopathy, Respiratory - Lungs sound clear with good air movement bilaterally, Cardiovascular - Heart rhythm is regular. There is no murmur, gallop, or rub noted, Abdomen - Soft. Liver and spleen are not enlarged. There is no abdominal mass or ascites noted and there is no inguinal adenopathy, Extremities - No edema, Neurologic - No focal neurologic deficits noted. Lab/Imaging: Test performed on Nov 23, 2021 11:16 LDH (Total) 217 U/L Sodium 137 mmol/L Potassium 4.9 mmol/L Chloride 104 mmol/L CO2 24 mmol/L Anion Gap 13.9 BUN 42 mg/dL Creatinine 4.6 mg/dL Cr Clearance (Est) 27.51 mL/min eGFR 13.1 mL/min Glucose 101 mg/dL Osmolality - Calculated 295 mOsm/kg Calcium 9.2 mg/dL Protein, Total 6.7 g/dL Albumin 3.9 g/dL Globulin 2.8 g/dL Bilirubin, Total 0.3 mg/dL ALT (SGPT) 19 U/L AST (SGOT) 27 U/L Alkaline Phosphatase 107 IU/L WBC 4.8 10 3/uL RBC 3.69 10 6/uL HGB 11.2 g/dL HCT 33.8 % MCV 91.6 fl MCH 30.4 pg MCHC 33.1 g/dL RDW 13.2 % Platelet Count 105 10 3/cmm MPV 9.3 fL Neutrophils 2.77 10 3/uL Lymphocytes 1.3 10 3/uL Monocytes 0.5 10 3/uL Eosinophils 0.2 10 3/uL Basophils 0.0 10 3/uL Neutrophil % 57.3 % Lymphocyte % 27.3 % Monocyte % 10.3 % Eosinophil % 3.9 % Basophils % 0.8 % NRBC % 0 % Problem List: 1. Mild thrombocytopenia. 2. Systemic lupus erythematosus with associated lupus nephritis. 3. End-stage renal disease, currently on peritoneal dialysis. 4. Hypertension. 5. Hyperlipidemia. 6. Obstructive sleep apnea. 7. Fibromyalgia. 8. He has a history of right lower extremity deep vein thrombosis. 9. He had malignant hypertension and congestive heart failure at the initial presentation of his lupus nephritis in 2003. Problems Addressed with this Encounter and Plan: Patient with mild thrombocytopenia in association with lupus nephritis and end-stage renal disease. He has undergone evaluation in preparation for possible renal transplant. The cause of the thrombocytopenia has been uncertain, though it appeared to most likely be autoimmune. It is of fairly long standing duration and without significant progression. In the context of a potential renal transplant, the main concern would be the possibility of developing myelodysplastic syndrome. By clinical evaluation, this appeared to be very unlikely, and during subsequent follow-up his blood counts have remained stable. As such, he has been cleared for renal transplant. In the meantime there was also some concern regarding his potential risk for perioperative thromboembolism. In reviewing his records, I could find no confirmation of a positive anticardiolipin antibody. As a precaution, I rechecked the anticardiolipin antibody profile and a beta-2 glycoprotein I antibody profile, and both were negative. With that in mind, he is recommended to have standard perioperative DVT prophylaxis. At least for now he will just continue regular follow-up with Dr. Black. I will plan to see him again as needed. Signed By: Joel Couch M.D. <<Signature on File>>
== END 2021-11-23 10:54 | disposition home or self-care (01) ==
PROVIDERS: PCP Internal Medicine; Visit Provider Internal Medicine Medical Oncology
DX: D69.6 Thrombocytopenia, unspecified (principal); M32.9 Systemic lupus erythematosus, unspecified; I12.0 Hypertensive chronic kidney disease with stage 5 chronic kidney disease or end stage renal disease; N18.6 End stage renal disease; Z99.2 Dependence on renal dialysis; E78.5 Hyperlipidemia, unspecified; G47.33 Obstructive sleep apnea (adult) (pediatric); Z79.899 Other long term (current) drug therapy; Z86.718 Personal history of other venous thrombosis and embolism
CPT/HCPCS: 36415; 80053; 83615; 85025; 99214

== ENCOUNTER → 2023-10-17 13:18 | Outpatient (BNVA) | payer MEDICARE, MEDICAID, SELFPAY | PROVIDERS: PCP Internal Medicine; Visit Provider Dermatology | DX: D48.5 Neoplasm of uncertain behavior of skin (principal); L57.8 Other skin changes due to chronic exposure to nonionizing radiation; D18.01 Hemangioma of skin and subcutaneous tissue; L82.1 Other seborrheic keratosis; L57.0 Actinic keratosis; L90.5 Scar conditions and fibrosis of skin | CPT/HCPCS: 11102; 17000; 99203 ==

== ENCOUNTER → 2023-11-19 07:49 | Outpatient (BNVA) | payer MEDICARE, MEDICAID, SELFPAY | PROVIDERS: PCP Internal Medicine; Visit Provider Dermatology | DX: C44.319 Basal cell carcinoma of skin of other parts of face (principal) | CPT/HCPCS: 12052; 17311 ==

== ENCOUNTER 2024-02-19 06:00 | Outpatient (CLI) | payer MEDICARE, MEDICAID, SELFPAY ==
--- NOTE | 2024-02-19 06:15 | US_ITS ---
WS: [id number] Complete ABDOMINAL ULTRASOUND HISTORY: ABD PAIN COMPARISON: 10/08/2014, 07/05/2018 Technically limited and difficult evaluation of the abdominal organs. Liver: 14.2 cm in length. Normal size liver and echogenicity. No bile duct dilatation or mass. Portal Vein: Normal hepatopetal flow with monophasic waveform. Gallbladder: Normally distended. There is a tiny gallbladder hyperplastic polyp measuring [address] ones. CBD: 0.2 cm Pancreas: Poorly visualized. Small portion of the body is identified and normal. Right kidney: 11.0 cm x 5.8 x 4.3 cm. Cortex:0.7 cm. Marked increased echogenicity. No hydronephrosis. Cortical cysts. The largest in the inferior pole 2. 3 x 2.0 x 1.8 cm. No solid mass. Left kidney: 10.8 cm x 7.0 cm x 4.0 cm. Cortex: 1.1 cm. Normal size kidney with marked increased echogenicity and acquired cortical cyst. The largest cyst varela perior pole 3.5 x 3.2 x 3.2 cm. No hydronephrosis. Spleen: 13.2 cm. Top normal size. Aorta and IVC: Poorly visualized. US/US abdomen complete* [id number] Impression: 1. Severe chronic medical renal disease. Marked increased echogenicity through out each kidney. 2. No renal obstruction or solid mass. 3. Numerous bilateral renal cysts. 4. No cholelithiasis. 3 mm gallbladder polyp. 5. Spleen is top normal size.
--- NOTE | 2024-02-19 06:30 | US_ITS ---
WS: [id number] ULTRASOUND SOFT TISSUES LEFT lower quadrant HISTORY: EVAL CATH SITE FOR INFECTION COMPARISON: None available. TECHNIQUE: 2-D and color Doppler imaging is submitted. Images are labeled LEFT lower quadrant. Along the foreign body which does appear to be a catheter the re is no fluid collection or hematoma. This is only very superficial evaluation of the catheter. No p rior radiographs or CT to correlate. US/US soft tissue/extremity [id number] IMPRESSION: Along the superficial catheter no abnormality is identified. This is only a sma ll segment of the catheter which is evaluated.
== END 2024-02-19 06:01 | disposition home or self-care (01) ==
LOC: RAD 06:00
PROVIDERS: PCP Internal Medicine; Visit Provider Internal Medicine
DX: N18.9 Chronic kidney disease, unspecified (principal); Z97.8 Presence of other specified devices; N28.1 Cyst of kidney, acquired; K82.4 Cholesterolosis of gallbladder
CPT/HCPCS: 76700; 76882

== ENCOUNTER 2024-09-04 20:40 | Emergency (ER) | payer MEDICARE, MEDICAID, SELFPAY ==
[2024-09-04 21:00] VITALS: BP 100/53; PULSE 111; TEMP 36.7; O2SAT 96; BMI 30.1
[2024-09-04 21:36] VITALS: BP 133/94; PULSE 87; O2SAT 99
--- NOTE | 2024-09-04 22:02 | ED_ITS ---
HPI - Male Genitourinary 2 General: Chief complaint: Urogenital-Male Stated complaint: kidney transplant pt, not able to pee Time Seen by Provider: 09/04/24 21:14 History of Present Illness: 64-year-old man who presents the emergen cy room with decreased urine output. He received a kidney transplant about 30 days ago. He was just on his way home from the hospital discharged earlier today. He has not had any urine output and became quite concerned. No new pain. No fevers. Blood pressure is a little soft and his heart rate was 111 on presentation. He is afebrile. He was told to come to have a bladder scan and basic lab work. No altered mental status. No focal motor deficits. Related Data Home Medications Medication Instructions Recorded Confirmed amlodipine 10 mg tablet 10 mg PO DAILY 02/09/20 05/12/22 bumetanide 2 mg tablet 2 mg PO BID 07/03/20 05/12/22 vit B,C-folic ac 800 mcg-zinc 12.5 1 tab PO QPM 07/03/20 05/12/22 mg-selen-D3 2,000 unit-vit E tablet (RenaPlex-D) metoprolol tartrate 50 mg tablet 50 mg PO BID 08/11/20 05/12/22 doxazosin 4 mg tablet 4 mg PO DAILY 05/20/21 05/12/22 hydroxychloroquine 200 mg tablet 200 mg PO BID 05/20/21 05/12/22 (Plaquenil) gabapentin 100 mg capsule 200 mg PO BEDTIME 09/13/21 05/12/22 lansoprazole 30 mg capsule,delayed 30 mg PO DAILY 09/13/21 05/12/22 release losartan 50 mg tablet 50 mg PO BID 09/13/21 05/12/22 Previous Rx's Medication Instructions Recorded doxycycline hyclate 100 mg tablet 100 mg PO BID 10 days #20 tabs 05/12/22 mupirocin 2 % topical ointment 1 applic topical TID #22 grams 05/12/22 Allergies Allergy/AdvReac Type Severity Reaction Status Date / Time Penicillins AdvReac rash Verified 09/04/24 21:06 Review of Systems 2 Narrative: Constitutional symptoms: Negative except as documented in HPI. Skin symptoms: Negative except as documented in HPI. Eye symptoms: Negative except as documented in HPI. ENMT symptoms: Negative except as documented in HPI. Respiratory symptoms: Negative except as documented in HPI. Cardiovascular symptoms: Negative except as documented in HPI. Gastrointestinal symptoms: Negative except as documented in HPI. Genitourinary symptoms: Negative except as documented in HPI. Musculoskeletal symptoms: Negative except as documented in HPI. Neurologic symptoms: Negative except as documented in HPI. Psychiatric symptoms: Negative except as documented in HPI. Endocrine symptoms: Negative except as documented in HPI. PFSH ED 2 PFSH: Medical History Anemia Colon polyps ESRD (end stage renal disease) HTN (hypertension) Hypertension Inflammatory arthritis Lupus nephritis Systemic lupus erythematosus Surgical History AV fistula History of colonoscopy had 2 last one was 2014 History of colonoscopy with polypectomy (10/05/21) History of umbilical hernia repair Peritoneal dialysis catheter in situ S/P dialysis catheter insertion Family History Father Hypertension Mother CAD (coronary artery disease) Other Cancer Social History Smoking and tobacco/nicotine status: never used tobacco/nicotine Alcohol intake: never Substance/Drug Use: never Marital status: Current occupational status: disabled Do you think of yourself as: Straight/Heterosexual Physical Exam 2 Narrative: EXAM NARRATIVE: General: Alert, no acute distress. Skin: Warm, dry. Head: Normocephalic, atraumatic. Neck: Supple, trachea midline. Eye: Extraocular movements are intact. Ears, nose, mouth and throat: mucosa moist. Cardiovascular: Regular, Normal peripheral perfusion. Respiratory: Lungs are clear to auscultation, respirations are non-labored, breath sounds are equal, Symmetrical chest wall expansion. Gastrointestinal: Soft, Non distended, incision site is clean dry and intact. Some mild tenderness over that area but no signs of infection. Musculoskeletal: Normal ROM, no deformity. Neurological: Alert and oriented, No focal neurological deficit observed. Psychiatric: Cooperative, appropriate mood & affect. Course 2 Vital Signs: Vital signs: Vital Signs Temperature 98.1 F 09/04/24 21:00 Pulse Rate 111 H 09/04/24 21:00 Blood Pressure 100/53 09/04/24 21:00 Pulse Oximetry 96 09/04/24 21:00 Oxygen Delivery Me thod Room Air 09/04/24 21:00 MDM - Male Medical Decision Making Lab Review: Laboratory results were reviewed and interpreted by myself the emergency room physician. No leukocytosis. No anemia. BUN and creatinine are 26 and 2.3. Urinalysis is negative for infection. Bladder scan: 70 mL in the bladder. Consultation: I spoke with Dr. Costa, a physician with his transplant team. She agrees with fluids and discharge once the patient has urinated. I reviewed the patient's medical record. Reexamination: Patient remained stable. No increased work of breathing. No altered mental status. No focal motor deficits. Assessment and plan: Oliguria Renal transplant recipient ? Normal saline bolus. Patient urinated prior to leaving the emergency room. - Discharged home - Discussed plan with patient. Answered any questions. - Evaluation and treatment of this problem were appropriate in the emergency setting. Lab Data 09/04/24 22:09/04/24 22: Laboratory Results WBC 10.27 10^3/uL (3.29-11.43) 09/04/24 22: RBC 3.59 10^6/uL (3.85-5.65) L 09/04/24: Hgb 10.60 g/dL (11.27-16.99) L 09/04/24: Hct 33.8 % (37-53) L 09/04/24: MCV 94.2 fl (82-101) 09/04/24: MCH 29.5 pg (27-33) 09/04/24: MCHC 31.4 g/dL (30-55) 09/04/24: RDW 15.0 % (12.1-15.1) 09/04/24: Plt Count 186 10^3/cmm (157-399) 09/04/24: MPV 8.2 fL (7.4-10.4) 09/04/24: Neut % (Auto) 75.7 % 09/04/24: Lymph % (Auto) 15.4 % 09/04/24: [place] % (Auto) 7.0 % 09/04/24: Eos % (Auto) 1.1 % 09/04/24 22: Baso % (Auto) 0.8 % 09/04/24 22: Neut # (Auto) 6.66 10^3/uL (1.8-7.7) 09/04/24 22: Lymph # (Auto) 1.6 10^3/uL (0.8-4.8) 09/04/24 22: [place] # (Auto) 0.7 10^3/uL (0.2-0.9) 09/04/24 22: Eos # (Auto) 0.1 10^3/uL (0.0-0.8) 09/04/24 22: Baso # (Auto) 0.1 10^3/uL (0.0-0.1) 09/04/24 22: Nucleated RBC % (auto) 0 % 09/04/24 22: Nucleated RBCs # 0.0 /100WBC 09/04/24 22: Sodium 132 mmol/L (136-145) L 09/04/24 22: Potassium 4.9 mmol/L (3.5-5.1) 09/04/24 22: Chloride 100 mmol/L (98-107) 09/04/24 22: Carbon Dioxide 19 mmol/L (22-29) L 09/04/24 22:27 Anion Gap 17.9 (5-19) 09/04/24 22:27 BUN 26 mg/dL (8-23) H 09/04/24 22: Creatinine 2.3 mg/dL (0.7-1.2) H 09/04/24 22:27 GFR Calculation 29.0 mL/min (90-130) L 09/04/24 22: Glucose 111 mg/dL (65-115) 09/04/24 22: Calculated Osmolality 279 mOsm/kg (285-295) L 09/04/24 22: Lactic Acid 0.9 mmol/L (0.5-2.2) 09/04/24 22: Calcium 9.7 mg/dL (8.5-10.5) 09/04/24 22: Total Bilirubin 0.2 mg/dL (0.15-1.2) 09/04/24 22: AST 23 U/L (0-40) 09/04/24 22:27 ALT 28 U/L (0-41) 09/04/24 22:27 Alkaline Phosphatase 79 U/L (40-130) 09/04/24 22:27 C-Reactive Protein 5.4 mg/L (0.0-4.9) H 09/04/24 22:27 Total Protein 6.4 g/dL (6.6-8.7) L 09/04/24 22:27 Albumin 3.8 g/dL (3.5-5.2) 09/04/24 22:27 Globulin 2.6 g/dL (1.3-4.6) 09/04/24 22:27 Urine Color Yellow (Yellow) 09/04/24 23:11 Urine Appearance Clear (CLEAR) 09/04/24 23:11 Urine pH 5.0 (5-7) 09/04/24 23:11 Ur Specific [place] 1.018 (1.005-1.030) 09/04/24 23:11 Urine Protein Trace (Negative) A 09/04/24 23:11 Urine Glucose (UA) Negative (Normal) 09/04/24 23:11 Urine Ketones Negative (Negative) 09/04/24 23:11 Urine Blood Negative (Negative) 09/04/24 23:11 Urine Nitrate Negative (Negative) 09/04/24 23:11 Urine Bilirubin Negative (Negative) 09/04/24 23:11 Urine Urobilinogen 0.2 mg/dL (Negative) 09/04/24 23:11 Ur Leukocyte Esterase Negative (Negative) 09/04/24 23:11 Urine RBC 0-2 /hpf (0-2) 09/04/24 23:11 Urine WBC 0-5 /hpf (0-5) 09/04/24 23:11 Ur Squamous Epith Cells 0-5 /hpf (0-5) 09/04/24 23:11 Amorphous Sediment Not Reportable 09/04/24 23:11 Urine Bacteria None seen /hpf (NONE) 09/04/24 23:11 Hyaline Casts 2.87 /lpf 09/04/24 23:11 No radiology studies performed this visit Discharge Plan Discharge Patient Disposition: Home Clinical Impression: Oliguria, Renal transplant recipient Condition: Stable Prescriptions: No Action doxazosin 4 mg tablet 4 mg PO DAILY hydroxychloroquine [Plaquenil] 200 mg tablet 200 mg PO BID mupirocin 2 % ointment 1 applic topical TID Qty: 22 0RF doxycycline hyclate 100 mg tablet 100 mg PO BID 10 Days Qty: 20 0RF amlodipine 10 mg tablet 10 mg PO DAILY metoprolol tartrate 50 mg tablet 50 mg PO BID bumetanide 2 mg tablet 2 mg PO BID RenaPlex-D 800 mcg-12.5 mg -2,000 unit tablet 1 tab PO QPM losartan 50 mg Tablet 50 mg PO BID lansoprazole 30 mg Capsule,Delayed Release(Dr/Ec) 30 mg PO DAILY gabapentin 100 mg Capsule 200 mg PO BEDTIME Discharge Orders: Discharge ED (Routine); Ordered 09/05/24 Ordered By: Soco Rodriguez Referrals: Neva Black MD [Primary Care Provider] - Discharge Diet: Usual diet Discharge Activity: Increase activity as tolerated Patient Instructions: Opioid Safety, Pain Management Activity Restrictions/Additional Instructions: Thank you for choosing [facility] for your healthcare needs today. Please realize this is an emergency room and that we are providing you with a medical screening exam and this may not be complete and all inclusive of all the testing and or work up that you may need to determine your ailment or severity of your illness. You have been screened and evaluated and felt safe for discharge. Health conditions do change or evolve sometimes and as such it is important that you follow up with your Primary Doctor to be re checked, 3-5 days is a general good time frame for follow up. You are always welcome to return to the ED for re assessment if your symptoms are worsening or you have new concerns Coding Level of Care Code ED [employer] Specialist for Padmini Sr
[2024-09-04 22:06] VITALS: BP 121/80; PULSE 91; O2SAT 93
[2024-09-04 22:36] VITALS: BP 119/81; PULSE 88; O2SAT 90
[2024-09-04 22:38] LABS: Basophils # 0.1 10^3/uL (0.0-0.1); Basophils % 0.8 %; Eosinophils # 0.1 10^3/uL (0.0-0.8); Eosinophils % 1.1 %; Hematocrit 33.8 % (37-53); Lymphocytes # 1.6 10^3/uL (0.8-4.8); Lymphocytes % 15.4 %; Mean Corpuscular HGB Conc 31.4 g/dL (30-55); Mean Corpuscular Hemoglobin 29.5 pg (27-33); Mean Corpuscular Volume 94.2 fl (82-101); Mean Platelet Volume 8.2 fL (7.4-10.4); Monocytes # 0.7 10^3/uL (0.2-0.9); Neutrophils # 6.66 10^3/uL (1.8-7.7); Nucleated Red Blood Cells % 0 %; Platelet Count 186 10^3/cmm (157-399); Red Blood Count 3.59 10^6/uL (3.85-5.65); White Blood Count 10.27 10^3/uL (3.29-11.43)
[2024-09-04 22:53] LABS: Alanine Aminotransferase 28 U/L (0-41); Albumin Level 3.8 g/dL (3.5-5.2); Alkaline Phosphatase 79 U/L (40-130); Anion Gap 17.9 (5-19); Aspartate Amino Transferase 23 U/L (0-40); Blood Urea Nitrogen 26 mg/dL (8-23); C Reactive Protein 5.4 mg/L (0.0-4.9); Calcium 9.7 mg/dL (8.5-10.5); Carbon Dioxide 19 mmol/L (22-29); Chloride 100 mmol/L (98-107); Creatinine Clr Calc Pharmacy 37.4142; Globulin 2.6 g/dL (1.3-4.6); Glucose 111 mg/dL (65-115); Osmolality Calculated 279 mOsm/kg (285-295); Potassium 4.9 mmol/L (3.5-5.1); Sodium 132 mmol/L (136-145); Total Bilirubin 0.2 mg/dL (0.15-1.2); Total Protein 6.4 g/dL (6.6-8.7)
[2024-09-04 22:54] LABS: Lactic Sepsis W/Reflex 0.9 mmol/L (0.5-2.2)
[2024-09-04 23:00] LABS: Slide Review Slide Review Perform
[2024-09-04 23:01] LABS: Neutrophils % 75.7 %
[2024-09-04 23:06] VITALS: BP 116/83; PULSE 82; O2SAT 94
[2024-09-04] MEDS: sodium chloride 0.9% 1,000 ML 999 ML IV (23:07)
[2024-09-04 23:30] VITALS: BP 145/83; PULSE 73; O2SAT 98
[2024-09-05] VITALS: BP 143/80; PULSE 73; O2SAT 97
[2024-09-05] LABS: Bilirubin Urine Negative (Negative); Blood Urine Negative (Negative); Glucose Urine UA Negative (Normal); Ketones Urine Negative (Negative); Leukocyte Esterase Urine Negative (Negative); Nitrate Urine Negative (Negative); Protein Urine Trace (Negative); Specific Gravity, Urine 1.018 (1.005-1.030); Urine Appearance Clear (CLEAR); Urine Color Yellow (Yellow); Urobilinogen Urine 0.2 mg/dL (Negative)
[2024-09-05 00:02] LABS: Bacteria Urine None Seen /hpf; Hyaline Casts Urine 2.87 /lpf; RBC Urine 0-2 /hpf (0-2); Squamous Epithelial Cell Urine 0-5 /hpf (0-5); WBC Urine 0-5 /hpf (0-5)
[2024-09-05 01:05] VITALS: BP 130/84; PULSE 75; O2SAT 97
== END 2024-09-05 00:46 | disposition home or self-care (01) ==
PROVIDERS: Emergency Provider Emergency Medicine; PCP Internal Medicine
DX: R34 Anuria and oliguria (principal); Z94.0 Kidney transplant status; I12.0 Hypertensive chronic kidney disease with stage 5 chronic kidney disease or end stage renal disease; N18.6 End stage renal disease
CPT/HCPCS: 36415; 51798; 80053; 81001; 83605; 85025; 86140; 87040; 96374; 99284; J7030

== ENCOUNTER 2024-09-16 07:02 | Outpatient (CLI) | payer MEDICARE, MEDICAID, SELFPAY ==
[2024-09-16 07:41] LABS: Basophils # 0.1 10^3/uL (0.0-0.1); Basophils % 1.1 %; Eosinophils # 0.1 10^3/uL (0.0-0.8); Eosinophils % 1.7 %; Hematocrit 34.8 % (37-53); Lymphocytes # 1.5 10^3/uL (0.8-4.8); Lymphocytes % 30.9 %; Mean Corpuscular HGB Conc 31.6 g/dL (30-55); Mean Corpuscular Hemoglobin 29.8 pg (27-33); Mean Corpuscular Volume 94.3 fl (82-101); Mean Platelet Volume 8.2 fL (7.4-10.4); Monocytes # 0.4 10^3/uL (0.2-0.9); Monocytes % 9.2 %; Neutrophils # 2.51 10^3/uL (1.8-7.7); Neutrophils % 53.5 %; Nucleated Red Blood Cells % 0 %; Platelet Count 126 10^3/cmm (157-399); Red Blood Count 3.69 10^6/uL (3.85-5.65); Red Cell Distribution Width 14.6 % (12.1-15.1); White Blood Count 4.69 10^3/uL (3.29-11.43)
[2024-09-16 07:50] LABS: Bilirubin Urine Negative (Negative); Blood Urine Negative (Negative); Glucose Urine UA Negative (Normal); Ketones Urine Negative (Negative); Leukocyte Esterase Urine Negative (Negative); Nitrate Urine Negative (Negative); Protein Urine Negative (Negative); Urine Appearance Clear (CLEAR); Urine Color Yellow (Yellow); Urobilinogen Urine 0.2 mg/dL (Negative); pH Urine 5.5 (5-7)
[2024-09-16 07:54] LABS: Bacteria Urine None Seen /hpf; Hyaline Casts Urine 0-4 /lpf; RBC Urine 0-2 /hpf (0-2); Squamous Epithelial Cell Urine 0-5 /hpf (0-5); WBC Urine 0-5 /hpf (0-5)
[2024-09-16 07:56] LABS: Albumin Level 3.9 g/dL (3.5-5.2); Blood Urea Nitrogen 20 mg/dL (8-23); Calcium 9.6 mg/dL (8.5-10.5); Carbon Dioxide 19 mmol/L (22-29); Chloride 105 mmol/L (98-107); Glomerular Filtration Rate 32.2 mL/min (90-130); Glucose 117 mg/dL (65-115); Magnesium 1.9 mg/dL (1.7-2.3); Phosphorus 1.9 mg/dL (2.5-4.5); Sodium 137 mmol/L (136-145)
[2024-09-16 07:58] LABS: Anion Gap 17.7 (5-19); Potassium 4.7 mmol/L (3.5-5.1)
[2024-09-16 08:10] LABS: Urine Creatinine 68 mg/dL (39-259); Urine Protein Random 8 mg/dL
[2024-09-16 08:14] LABS: UPRO/UCREAT Ratio 0.12 mg/mg CR
== END 2024-09-16 07:03 | disposition home or self-care (01) ==
LOC: LAB 07:07
PROVIDERS: PCP Internal Medicine
DX: Z79.899 Other long term (current) drug therapy (principal); Z48.22 Encounter for aftercare following kidney transplant; Z94.0 Kidney transplant status
CPT/HCPCS: 36415; 80069; 80197; 81001; 82570; 83735; 84156; 85025; 87496; 87798

== ENCOUNTER 2024-09-23 08:37 | Outpatient (CLI) | payer MEDICARE, MEDICAID, SELFPAY ==
[2024-09-23 09:03] LABS: Basophils # 0.1 10^3/uL (0.0-0.1); Basophils % 0.9 %; Eosinophils # 0.1 10^3/uL (0.0-0.8); Eosinophils % 1.2 %; Hematocrit 33.9 % (37-53); Lymphocytes # 1.6 10^3/uL (0.8-4.8); Lymphocytes % 20.2 %; Mean Corpuscular HGB Conc 32.4 g/dL (30-55); Mean Corpuscular Hemoglobin 30.8 pg (27-33); Mean Platelet Volume 8.6 fL (7.4-10.4); Monocytes # 0.5 10^3/uL (0.2-0.9); Monocytes % 6.9 %; Neutrophils # 5.26 10^3/uL (1.8-7.7); Neutrophils % 67.5 %; Nucleated Red Blood Cells % 0 %; Platelet Count 133 10^3/cmm (157-399); Red Blood Count 3.57 10^6/uL (3.85-5.65); Red Cell Distribution Width 14.7 % (12.1-15.1); White Blood Count 7.79 10^3/uL (3.29-11.43)
[2024-09-23 09:10] LABS: Bilirubin Urine Negative (Negative); Blood Urine Negative (Negative); Glucose Urine UA Negative (Normal); Ketones Urine Negative (Negative); Leukocyte Esterase Urine Negative (Negative); Nitrate Urine Negative (Negative); Protein Urine Negative (Negative); Specific Gravity, Urine 1.013 (1.005-1.030); Urine Appearance Clear (CLEAR); Urine Color Yellow (Yellow); Urobilinogen Urine 0.2 mg/dL (Negative)
[2024-09-23 09:15] LABS: Bacteria Urine None Seen /hpf; Hyaline Casts Urine 0-4 /lpf; RBC Urine 0-2 /hpf (0-2); Squamous Epithelial Cell Urine 0-5 /hpf (0-5); WBC Urine 0-5 /hpf (0-5)
[2024-09-23 09:25] LABS: Albumin Level 4.1 g/dL (3.5-5.2); Anion Gap 13.8 (5-19); Blood Urea Nitrogen 21 mg/dL (8-23); Calcium 9.8 mg/dL (8.5-10.5); Carbon Dioxide 23 mmol/L (22-29); Chloride 101 mmol/L (98-107); Glomerular Filtration Rate 30.5 mL/min (90-130); Glucose 105 mg/dL (65-115); Phosphorus 1.6 mg/dL (2.5-4.5); Potassium 4.8 mmol/L (3.5-5.1); Sodium 133 mmol/L (136-145)
[2024-09-23 09:27] LABS: Urine Creatinine 101 mg/dL (39-259); Urine Protein Random 9 mg/dL
[2024-09-23 09:30] LABS: UPRO/UCREAT Ratio 0.09 mg/mg CR
== END 2024-09-23 08:38 | disposition home or self-care (01) ==
PROVIDERS: PCP Internal Medicine; Visit Provider Internal Medicine Nephrology
DX: Z48.22 Encounter for aftercare following kidney transplant (principal); Z79.899 Other long term (current) drug therapy; Z94.0 Kidney transplant status
CPT/HCPCS: 36415; 80069; 80197; 81001; 82570; 83735; 84156; 85025; 87496; 87798

== ENCOUNTER 2024-09-29 07:06 | Outpatient (CLI) | payer MEDICARE, MEDICAID, SELFPAY ==
[2024-09-29 07:52] LABS: Basophils # 0.1 10^3/uL (0.0-0.1); Basophils % 0.9 %; Eosinophils % 0.7 %; Hematocrit 32.5 % (37-53); Lymphocytes # 1.1 10^3/uL (0.8-4.8); Lymphocytes % 20.2 %; Mean Corpuscular HGB Conc 32.3 g/dL (30-55); Mean Corpuscular Hemoglobin 30.3 pg (27-33); Mean Corpuscular Volume 93.7 fl (82-101); Mean Platelet Volume 8.7 fL (7.4-10.4); Monocytes # 0.4 10^3/uL (0.2-0.9); Monocytes % 7.3 %; Neutrophils # 3.75 10^3/uL (1.8-7.7); Neutrophils % 66.6 %; Nucleated Red Blood Cells % 0 %; Platelet Count 135 10^3/cmm (157-399); Red Blood Count 3.47 10^6/uL (3.85-5.65); Red Cell Distribution Width 14.3 % (12.1-15.1); White Blood Count 5.63 10^3/uL (3.29-11.43)
[2024-09-29 08:09] LABS: Albumin Level 3.8 g/dL (3.5-5.2); Anion Gap 13.8 (5-19); Blood Urea Nitrogen 21 mg/dL (8-23); Calcium 9.7 mg/dL (8.5-10.5); Carbon Dioxide 24 mmol/L (22-29); Chloride 103 mmol/L (98-107); Glucose 101 mg/dL (65-115); Phosphorus 2.4 mg/dL (2.5-4.5); Potassium 4.8 mmol/L (3.5-5.1); Sodium 136 mmol/L (136-145)
[2024-09-29 08:11] LABS: Calcium 9.8 mg/dL (8.5-10.5)
[2024-09-29 08:12] LABS: Bilirubin Urine Negative (Negative); Blood Urine Negative (Negative); Glucose Urine UA Negative (Normal); Ketones Urine Negative (Negative); Leukocyte Esterase Urine Negative (Negative); Nitrate Urine Negative (Negative); Protein Urine Trace (Negative); Specific Gravity, Urine 1.014 (1.005-1.030); Urine Appearance Clear (CLEAR); Urine Color Yellow (Yellow); Urobilinogen Urine 0.2 mg/dL (Negative)
[2024-09-29 08:14] LABS: Add Urine Microscopic? YES; Bacteria Urine None Seen /hpf; Hyaline Casts Urine 0.81 /lpf; RBC Urine 0-2 /hpf (0-2); Squamous Epithelial Cell Urine 0-5 /hpf (0-5); WBC Urine 0-5 /hpf (0-5)
[2024-09-29 08:22] LABS: Urine Creatinine 108 mg/dL (39-259); Urine Protein Random 13 mg/dL
[2024-09-29 08:23] LABS: UPRO/UCREAT Ratio 0.12 mg/mg CR
[2024-10-01 09:54] LABS: Tacrolimus, Highly Sensitive 6.7 mcg/L
== END 2024-09-29 07:07 | disposition home or self-care (01) ==
LOC: LAB 07:10
PROVIDERS: PCP Internal Medicine; Visit Provider Internal Medicine
DX: Z48.22 Encounter for aftercare following kidney transplant (principal); Z79.899 Other long term (current) drug therapy; Z94.0 Kidney transplant status
CPT/HCPCS: 36415; 80069; 80197; 81001; 82310; 82570; 83735; 83970; 84156; 85025; 87496; 87798

== ENCOUNTER 2024-10-06 07:22 | Outpatient (CLI) | payer MEDICARE, MEDICAID, SELFPAY ==
[2024-10-06 08:09] LABS: Basophils # 0.1 10^3/uL (0.0-0.1); Basophils % 0.8 %; Eosinophils # 0.1 10^3/uL (0.0-0.8); Eosinophils % 0.9 %; Hematocrit 34.9 % (37-53); Lymphocytes # 1.4 10^3/uL (0.8-4.8); Lymphocytes % 21.3 %; Mean Corpuscular HGB Conc 31.8 g/dL (30-55); Mean Corpuscular Hemoglobin 29.4 pg (27-33); Mean Corpuscular Volume 92.6 fl (82-101); Mean Platelet Volume 8.3 fL (7.4-10.4); Monocytes # 0.5 10^3/uL (0.2-0.9); Monocytes % 7.4 %; Neutrophils # 4.23 10^3/uL (1.8-7.7); Neutrophils % 63.4 %; Nucleated Red Blood Cells % 0 %; Platelet Count 201 10^3/cmm (157-399); Red Blood Count 3.77 10^6/uL (3.85-5.65); White Blood Count 6.66 10^3/uL (3.29-11.43)
[2024-10-06 08:19] LABS: Bilirubin Urine Negative (Negative); Blood Urine Negative (Negative); Glucose Urine UA Negative (Normal); Ketones Urine Negative (Negative); Leukocyte Esterase Urine Negative (Negative); Nitrate Urine Negative (Negative); Protein Urine Negative (Negative); Specific Gravity, Urine 1.012 (1.005-1.030); Urine Appearance Clear (CLEAR); Urine Color Yellow (Yellow); Urobilinogen Urine 0.2 mg/dL (Negative); pH Urine 5.5 (5-7)
[2024-10-06 08:22] LABS: Add Urine Microscopic? YES; Bacteria Urine None Seen /hpf; Hyaline Casts Urine 0-4 /lpf; RBC Urine 0-2 /hpf (0-2); Squamous Epithelial Cell Urine 0-5 /hpf (0-5); WBC Urine 0-5 /hpf (0-5)
[2024-10-06 08:28] LABS: Albumin Level 4.2 g/dL (3.5-5.2); Anion Gap 16.1 (5-19); Blood Urea Nitrogen 29 mg/dL (8-23); Calcium 10.1 mg/dL (8.5-10.5); Carbon Dioxide 22 mmol/L (22-29); Chloride 99 mmol/L (98-107); Glomerular Filtration Rate 26.3 mL/min (90-130); Glucose 111 mg/dL (65-115); Magnesium 2.1 mg/dL (1.7-2.3); Potassium 5.1 mmol/L (3.5-5.1); Sodium 132 mmol/L (136-145)
[2024-10-06 08:30] LABS: Urine Creatinine 88 mg/dL (39-259); Urine Protein Random 7 mg/dL
[2024-10-06 08:31] LABS: UPRO/UCREAT Ratio 0.08 mg/mg CR
[2024-10-06 08:41] LABS: Slide Review Slide Review Perform
== END 2024-10-06 07:23 | disposition home or self-care (01) ==
PROVIDERS: PCP Internal Medicine; Visit Provider Internal Medicine
DX: Z48.22 Encounter for aftercare following kidney transplant (principal); Z79.899 Other long term (current) drug therapy; Z94.0 Kidney transplant status
CPT/HCPCS: 36415; 80069; 80197; 81001; 82570; 83735; 84156; 85025; 87496; 87798

== ENCOUNTER 2024-10-18 00:54 | Emergency (ER) | payer MEDICARE, MEDICAID, SELFPAY ==
[2024-10-18 01:00] VITALS: BP 115/69; PULSE 87; RESP 16; TEMP 36.8; O2SAT 97; BMI 30.2
--- NOTE | 2024-10-18 02:28 | ED_ITS ---
HPI - Male Genitourinary General: Chief complaint: Urogenital-Male Stated complaint: Fever,Burrows when Pee Time Seen by Provider: 10/18/24 02:23 History of Present Illness: Patient presents to the ER with complaints of pain burning frequency when he urinates he also had a fever tonight approximate 101 however took Tylenol and it broke. Patient is a kidney transplant patient and on immunosuppressants. Patient also has a standing order of Cipro at home that he can use. He has 5 d ays worth he did take 1 tablet before arriving at the ER tonight. Related Data Home Medications Medication Instructions Recorded Confirmed amlodipine 10 mg tablet 10 mg PO DAILY 02/09/20 05/12/22 bumetanide 2 mg tablet 2 mg PO BID 07/03/20 05/12/22 vit B,C-folic ac 800 mcg-zinc 12.5 1 tab PO QPM 07/03/20 05/12/22 mg-selen-D3 2,000 unit-vit E tablet (RenaPlex-D) metoprolol tartrate 50 mg tablet 50 mg PO BID 08/11/20 05/12/22 doxazosin 4 mg tablet 4 mg PO DAILY 05/20/21 05/12/22 hydroxychloroquine 200 mg tablet 200 mg PO BID 05/20/21 05/12/22 (Plaquenil) gabapentin 100 mg capsule 200 mg PO BEDTIME 09/13/21 05/12/22 lansoprazole 30 mg capsule,delayed 30 mg PO DAILY 09/13/21 05/12/22 release losartan 50 mg tablet 50 mg PO BID 09/13/21 05/12/22 Previous Rx's Medication Instructions Recorded doxycycline hyclate 100 mg tablet 100 mg PO BID 10 days #20 tabs 05/12/22 mupirocin 2 % topical ointment 1 applic topical TID #22 grams 05/12/22 ciprofloxacin HCl 500 mg tablet 500 mg PO Q12H #20 tabs 10/18/24 Allergies Allergy/AdvReac Type Severity Reaction Status Date / Time Penicillins AdvReac rash Verified 10/18/24 01:05 Review of Systems General: Reports: 10 or more systems reviewed and unremarkable except in HPI and below PFSH ED PFSH: Medical History Colon polyps Anemia HTN (hypertension) ESRD (end stage renal disease) Hypertension Inflammatory arthritis Lupus nephritis Systemic lupus erythematosus Surgical History History of colonoscopy with polypectomy (10/05/21) Peritoneal dialysis catheter in situ AV fistula History of umbilical hernia repair History of colonoscopy had 2 last one was 2014 S/P dialysis catheter insertion Family History Father Hypertension Mother CAD (coronary artery disease) Other Cancer Social History Smoking and tobacco/nicotine status: never used tobacco/nicotine Alcohol intake: never Substance/Drug Use: never Marital status: Current occupational status: disabled Do you think of yourself as: Straight/Heterosexual Physical Exam Const: COMMON NORMALS: no acute distress, average body habitus, patient oriented x3, no limitations, healthy appearing, alert and well nourished HENMT: COMMON NORMALS: normocephalic, atraumatic, hearing grossly normal bilaterally, external ears normal, Normal external nose present and moist oral mucous membranes HEAD & SCALP: normocephalic and atraumatic NOSE: Normal external nose present EXTERNAL EAR: Yes external ears normal Neck/C-Spine: COMMON NORMALS: no JVD Chest: COMMONS NORMALS: normal inspection of the chest and normal palpation of entire chest wall Resp: COMMON NORMALS: normal respiratory effort, No retractions, No use of accessory muscles and clear to auscultation bilaterally AUSCULTATION: clear to auscultation bilaterally Cardio: COMMON NORMALS: no JVD, regular rate, regular rhythm, S1 normal heart sound present, S2 normal heart sound present, No gallops present (Cardio), No clicks present (Cardio), No murmurs present (Cardio) and No rub (Cardio) RATE: regular rate RHYTHM: regular rhythm HEART SOUNDS: S1 normal heart sound present and S2 normal heart sound present GI: COMMON NORMALS: Normal to inspection, nondistended, normoactive bowel sounds present, Soft to palpation, non-tender, No hepatosplenomegaly present and no masses PALPATION: Yes Soft to palpation and Yes No hepatosplenomegaly present Neuro: COMMON NORMALS: patient oriented x3 SENSORIUM/ORIENTATION: Yes alert Course Vital Signs: Vital signs: Vital Signs Temperature 98.2 F 10/18/24 01:00 Pulse Rate 87 10/18/24 01:00 Respiratory Rate 16 10/18/24 01:00 Blood Pressure 115/69 10/18/24 01:00 Pulse Oximetry 97 10/18/24 01:00 MDM - Male Medical Decision Making UA showed positive infection with greater than 100 white cells 3+ leukocyte Estrace. Will keep the patient on ciprofloxacin until we get the culture and sensitivity back. These results were discussed with the patient and his and they are comfortable with this decision. Medical Records I reviewed the patient's medical records. Lab Data I reviewed the patient's lab results. Laboratory Results Urine Color Yellow (Yellow) 10/18/24 02:18 Urine Appearance Turbid (CLEAR) A 10/18/24 02:18 Urine pH 5.5 (5-7) 10/18/24 02:18 Ur Specific [place] 1.012 (1.005-1.030) 10/18/24 02:18 Urine Protein Trace (Negative) A 10/18/24 02:18 Urine Glucose (UA) Negative (Normal) 10/18/24 02:18 Urine Ketones Negative (Negative) 10/18/24 02:18 Urine Blood 1+ (Negative) A 10/18/24 02:18 Urine Nitrate Negative (Negative) 10/18/24 02:18 Urine Bilirubin Negative (Negative) 10/18/24 02:18 Urine Urobilinogen 0.2 mg/dL (Negative) 10/18/24 02:18 Ur Leukocyte Esterase 3+ (Negative) A 10/18/24 02:18 Urine RBC 3-5 /hpf (0-2) 10/18/24 02:18 Urine WBC >100 /hpf (0-5) H 10/18/24 02:18 Ur Squamous Epith Cells 0-5 /hpf (0-5) 10/18/24 02:18 Amorphous Sediment Not Reportable 10/18/24 02:18 Urine Bacteria None seen /hpf (NONE) 10/18/24 02:18 Hyaline Casts 0.81 /lpf 10/18/24 02:18 All radiology interpretation(s) finalized by discharge Discharge Plan Discharge Patient Disposition: Home Clinical Impression: Urinary tract infection Qualifiers: Urinary tract infection type: acute cystitis Hematuria presence: with hematuria Qualified Code(s): N30.01 - Acute cystitis with hematuria Condition: Stable Prescriptions: New ciprofloxacin HCl 500 mg tablet 500 mg PO Q12H Qty: 20 0RF No Action doxazosin 4 mg tablet 4 mg PO DAILY hydroxychloroquine [Plaquenil] 200 mg tablet 200 mg PO BID mupirocin 2 % ointment 1 applic topical TID Qty: 22 0RF doxycycline hyclate 100 mg tablet 100 mg PO BID 10 Days Qty: 20 0RF amlodipine 10 mg tablet 10 mg PO DAILY metoprolol tartrate 50 mg tablet 50 mg PO BID bumetanide 2 mg tablet 2 mg PO BID RenaPlex-D 800 mcg-12.5 mg -2,000 unit tablet 1 tab PO QPM losartan 50 mg Tablet 50 mg PO BID lansoprazole 30 mg Capsule,Delayed Release(Dr/Ec) 30 mg PO DAILY gabapentin 100 mg Capsule 200 mg PO BEDTIME Discharge Orders: Discharge ED (Routine); Ordered 10/18/24 Ordered By: Washington Corona Referrals: Neva Black MD [Primary Care Provider] - 1 week Patient Instructions: Urinary Tract Infection - Men Activity Restrictions/Additional Instructions: Urinalysis performed in the ER showed you have a urinary tract infection. Please continue your Cipro as directed. Another prescription has been sent into the pharmacy. When we get the culture and sensitivity data back if we have to change her medicine based on the bacteria that is growing out we will call you and prescribe the antibiotic that will work for that bacteria. Otherwise continue your Cipro. Please follow-up with your family practice physician within next 7 days for further evaluation and treatment as needed. Coding Level of Care Code ED [employer] In[employer] for [employer]
[2024-10-18 02:29] LABS: Bilirubin Urine Negative (Negative); Blood Urine 1+ (Negative); Glucose Urine UA Negative (Normal); Ketones Urine Negative (Negative); Leukocyte Esterase Urine 3+ (Negative); Nitrate Urine Negative (Negative); Protein Urine Trace (Negative); Specific Gravity, Urine 1.012 (1.005-1.030); Urine Appearance Turbid (CLEAR); Urine Color Yellow (Yellow); Urobilinogen Urine 0.2 mg/dL (Negative); pH Urine 5.5 (5-7)
[2024-10-18 02:33] LABS: Add Urine Microscopic? YES; Bacteria Urine None Seen /hpf; Hyaline Casts Urine 0.81 /lpf; Squamous Epithelial Cell Urine 0-5 /hpf (0-5); WBC Urine >100 /hpf (0-5)
[2024-10-18 02:44] LABS: Add Urine Culture? Yes
[2024-10-18 03:11] VITALS: BP 108/67; PULSE 84; O2SAT 95
== END 2024-10-18 03:12 | disposition home or self-care (01) ==
PROVIDERS: Emergency Provider Emergency Medicine; PCP Internal Medicine
DX: N30.01 Acute cystitis with hematuria (principal); I12.0 Hypertensive chronic kidney disease with stage 5 chronic kidney disease or end stage renal disease; N18.6 End stage renal disease
CPT/HCPCS: 81001; 87077; 87086; 87186; 99283

== ENCOUNTER 2024-10-20 07:33 | Outpatient (CLI) | payer MEDICAID, MEDICARE, SELFPAY ==
[2024-10-20 08:16] LABS: Basophils % 0.6 %; Eosinophils % 0.6 %; Hematocrit 35.4 % (37-53); Lymphocytes # 1.7 10^3/uL (0.8-4.8); Lymphocytes % 23.5 %; Mean Corpuscular HGB Conc 31.4 g/dL (30-55); Mean Corpuscular Hemoglobin 29.4 pg (27-33); Mean Corpuscular Volume 93.7 fl (82-101); Mean Platelet Volume 8.9 fL (7.4-10.4); Monocytes # 0.5 10^3/uL (0.2-0.9); Monocytes % 7.6 %; Neutrophils # 4.61 10^3/uL (1.8-7.7); Neutrophils % 64.6 %; Nucleated Red Blood Cells % 0 %; Platelet Count 135 10^3/cmm (157-399); Red Blood Count 3.78 10^6/uL (3.85-5.65); Red Cell Distribution Width 14.2 % (12.1-15.1); White Blood Count 7.12 10^3/uL (3.29-11.43)
[2024-10-20 08:30] LABS: Anion Gap 17.4 (5-19); Blood Urea Nitrogen 19 mg/dL (8-23); Calcium 9.6 mg/dL (8.5-10.5); Carbon Dioxide 22 mmol/L (22-29); Chloride 99 mmol/L (98-107); Glomerular Filtration Rate 30.5 mL/min (90-130); Glucose 109 mg/dL (65-115); Magnesium 1.7 mg/dL (1.7-2.3); Phosphorus 2.1 mg/dL (2.5-4.5); Potassium 4.4 mmol/L (3.5-5.1); Sodium 134 mmol/L (136-145)
[2024-10-20 08:55] LABS: Bilirubin Urine Negative (Negative); Blood Urine Negative (Negative); Glucose Urine UA Negative (Normal); Ketones Urine Negative (Negative); Leukocyte Esterase Urine 1+ (Negative); Nitrate Urine Negative (Negative); Protein Urine Trace (Negative); Specific Gravity, Urine 1.012 (1.005-1.030); Urine Appearance Clear (CLEAR); Urine Color Yellow (Yellow); Urobilinogen Urine 0.2 mg/dL (Negative); pH Urine 5.5 (5-7)
[2024-10-20 09:00] LABS: Bacteria Urine None Seen /hpf; Hyaline Casts Urine 0.81 /lpf; RBC Urine 0-2 /hpf (0-2); Squamous Epithelial Cell Urine 0-5 /hpf (0-5); WBC Urine 21-50 /hpf (0-5)
[2024-10-20 09:04] LABS: Add Urine Culture? Yes
[2024-10-20 09:06] LABS: Urine Creatinine 101 mg/dL (39-259); Urine Protein Random 10 mg/dL
== END 2024-10-20 07:34 | disposition home or self-care (01) ==
LOC: LAB 07:38
PROVIDERS: PCP Internal Medicine; Visit Provider Internal Medicine Nephrology
DX: Z79.899 Other long term (current) drug therapy (principal); Z48.22 Encounter for aftercare following kidney transplant; Z94.0 Kidney transplant status
CPT/HCPCS: 36415; 80069; 80197; 81001; 82570; 83735; 84156; 85025; 87086; 87496; 87798

== ENCOUNTER 2024-10-27 06:56 | Outpatient (CLI) | payer MEDICAID, MEDICARE, SELFPAY ==
[2024-10-27 07:40] LABS: Basophils # 0.1 10^3/uL (0.0-0.1); Basophils % 0.9 %; Eosinophils # 0.1 10^3/uL (0.0-0.8); Eosinophils % 0.9 %; Hematocrit 34.6 % (37-53); Lymphocytes # 1.8 10^3/uL (0.8-4.8); Lymphocytes % 27.1 %; Mean Corpuscular HGB Conc 32.1 g/dL (30-55); Mean Corpuscular Hemoglobin 29.4 pg (27-33); Mean Corpuscular Volume 91.8 fl (82-101); Mean Platelet Volume 8.4 fL (7.4-10.4); Monocytes # 0.6 10^3/uL (0.2-0.9); Monocytes % 8.6 %; Neutrophils # 3.88 10^3/uL (1.8-7.7); Neutrophils % 57.5 %; Nucleated Red Blood Cells % 0 %; Platelet Count 195 10^3/cmm (157-399); Red Blood Count 3.77 10^6/uL (3.85-5.65); Red Cell Distribution Width 14.2 % (12.1-15.1); White Blood Count 6.75 10^3/uL (3.29-11.43)
[2024-10-27 07:43] LABS: Bilirubin Urine Negative (Negative); Blood Urine Negative (Negative); Glucose Urine UA Negative (Normal); Ketones Urine Negative (Negative); Leukocyte Esterase Urine Negative (Negative); Nitrate Urine Negative (Negative); Protein Urine Negative (Negative); Specific Gravity, Urine 1.012 (1.005-1.030); Urine Appearance Clear (CLEAR); Urine Color Yellow (Yellow); Urobilinogen Urine 0.2 mg/dL (Negative); pH Urine 5.5 (5-7)
[2024-10-27 07:46] LABS: Add Urine Microscopic? YES; Bacteria Urine None Seen /hpf; Hyaline Casts Urine 0-4 /lpf; RBC Urine 0-2 /hpf (0-2); Squamous Epithelial Cell Urine 0-5 /hpf (0-5); WBC Urine 0-5 /hpf (0-5)
[2024-10-27 07:53] LABS: Albumin Level 4.2 g/dL (3.5-5.2); Anion Gap 15.4 (5-19); Blood Urea Nitrogen 26 mg/dL (8-23); Carbon Dioxide 22 mmol/L (22-29); Chloride 99 mmol/L (98-107); Glucose 109 mg/dL (65-115); Magnesium 1.7 mg/dL (1.7-2.3); Phosphorus 2.5 mg/dL (2.5-4.5); Potassium 4.4 mmol/L (3.5-5.1); Sodium 132 mmol/L (136-145)
[2024-10-27 08:01] LABS: Urine Creatinine 95 mg/dL (39-259); Urine Protein Random 5 mg/dL
[2024-10-27 08:05] LABS: UPRO/UCREAT Ratio 0.05 mg/mg CR
== END 2024-10-27 06:57 | disposition home or self-care (01) ==
LOC: LAB 07:00
PROVIDERS: PCP Internal Medicine; Visit Provider Internal Medicine
DX: Z48.22 Encounter for aftercare following kidney transplant (principal); Z79.899 Other long term (current) drug therapy; Z94.0 Kidney transplant status
CPT/HCPCS: 36415; 80069; 80197; 81001; 82570; 83735; 84156; 85025; 87086; 87496; 87798

== ENCOUNTER 2024-11-03 07:10 | Outpatient (CLI) | payer MEDICAID, MEDICARE, SELFPAY ==
[2024-11-03 07:43] LABS: Basophils % 0.7 %; Eosinophils % 0.3 %; Hematocrit 35.3 % (37-53); Lymphocytes # 1.2 10^3/uL (0.8-4.8); Lymphocytes % 20.7 %; Mean Corpuscular HGB Conc 32.3 g/dL (30-55); Mean Corpuscular Hemoglobin 29.5 pg (27-33); Mean Corpuscular Volume 91.2 fl (82-101); Mean Platelet Volume 8.3 fL (7.4-10.4); Monocytes # 0.5 10^3/uL (0.2-0.9); Monocytes % 8.6 %; Neutrophils # 4.01 10^3/uL (1.8-7.7); Nucleated Red Blood Cells % 0 %; Platelet Count 150 10^3/cmm (157-399); Red Blood Count 3.87 10^6/uL (3.85-5.65); Red Cell Distribution Width 14.1 % (12.1-15.1)
[2024-11-03 08:06] LABS: Albumin Level 4.4 g/dL (3.5-5.2); Anion Gap 15.4 (5-19); Blood Urea Nitrogen 21 mg/dL (8-23); Calcium 9.9 mg/dL (8.5-10.5); Carbon Dioxide 22 mmol/L (22-29); Chloride 101 mmol/L (98-107); Glomerular Filtration Rate 30.5 mL/min (90-130); Glucose 111 mg/dL (65-115); Magnesium 1.9 mg/dL (1.7-2.3); Phosphorus 2.1 mg/dL (2.5-4.5); Potassium 4.4 mmol/L (3.5-5.1); Sodium 134 mmol/L (136-145)
[2024-11-03 08:38] LABS: Bilirubin Urine Negative (Negative); Blood Urine Negative (Negative); Glucose Urine UA Negative (Normal); Ketones Urine Negative (Negative); Leukocyte Esterase Urine Negative (Negative); Nitrate Urine Negative (Negative); Protein Urine Negative (Negative); Specific Gravity, Urine 1.012 (1.005-1.030); Urine Appearance Clear (CLEAR); Urine Color Yellow (Yellow); Urobilinogen Urine 0.2 mg/dL (Negative); pH Urine 5.5 (5-7)
[2024-11-03 08:43] LABS: Bacteria Urine None Seen /hpf; RBC Urine 0-2 /hpf (0-2); Squamous Epithelial Cell Urine 0-5 /hpf (0-5); WBC Urine 0-5 /hpf (0-5)
[2024-11-03 08:55] LABS: Urine Creatinine 93 mg/dL (39-259); Urine Protein Random 7 mg/dL
[2024-11-03 08:58] LABS: UPRO/UCREAT Ratio 0.08 mg/mg CR
[2024-11-04 15:24] LABS: Tacrolimus, Highly Sensitive 10.2 mcg/L
== END 2024-11-03 07:11 | disposition home or self-care (01) ==
LOC: LAB 07:12
PROVIDERS: PCP Internal Medicine; Visit Provider Internal Medicine
DX: Z48.22 Encounter for aftercare following kidney transplant (principal); Z79.899 Other long term (current) drug therapy; Z94.0 Kidney transplant status
CPT/HCPCS: 36415; 80069; 80197; 81001; 82570; 83735; 84156; 85025; 87496; 87798

== ENCOUNTER 2024-11-10 07:17 | Outpatient (CLI) | payer MEDICAID, MEDICARE, SELFPAY ==
[2024-11-10 07:44] LABS: Basophils % 0.7 %; Eosinophils % 0.3 %; Hematocrit 35.2 % (37-53); Lymphocytes # 1.3 10^3/uL (0.8-4.8); Lymphocytes % 21.5 %; Mean Corpuscular HGB Conc 31.8 g/dL (30-55); Mean Corpuscular Hemoglobin 29.6 pg (27-33); Mean Corpuscular Volume 92.9 fl (82-101); Mean Platelet Volume 8.6 fL (7.4-10.4); Monocytes # 0.6 10^3/uL (0.2-0.9); Monocytes % 9.6 %; Neutrophils # 3.88 10^3/uL (1.8-7.7); Neutrophils % 65.5 %; Nucleated Red Blood Cells % 0 %; Platelet Count 142 10^3/cmm (157-399); Red Blood Count 3.79 10^6/uL (3.85-5.65); Red Cell Distribution Width 14.2 % (12.1-15.1); White Blood Count 5.92 10^3/uL (3.29-11.43)
[2024-11-10 07:52] LABS: Bilirubin Urine Negative (Negative); Blood Urine Negative (Negative); Glucose Urine UA Negative (Normal); Ketones Urine Negative (Negative); Leukocyte Esterase Urine 1+ (Negative); Nitrate Urine Negative (Negative); Protein Urine Negative (Negative); Specific Gravity, Urine 1.014 (1.005-1.030); Urine Appearance Clear (CLEAR); Urine Color Yellow (Yellow); Urobilinogen Urine 0.2 mg/dL (Negative); pH Urine 5.5 (5-7)
[2024-11-10 08:05] LABS: Albumin Level 4.2 g/dL (3.5-5.2); Anion Gap 13.7 (5-19); Blood Urea Nitrogen 18 mg/dL (8-23); Carbon Dioxide 23 mmol/L (22-29); Chloride 101 mmol/L (98-107); Glucose 105 mg/dL (65-115); Magnesium 1.7 mg/dL (1.7-2.3); Phosphorus 2.4 mg/dL (2.5-4.5); Potassium 4.7 mmol/L (3.5-5.1); Sodium 133 mmol/L (136-145)
[2024-11-10 08:10] LABS: Urine Creatinine 108 mg/dL (39-259); Urine Protein Random 10 mg/dL
[2024-11-10 08:11] LABS: UPRO/UCREAT Ratio 0.09 mg/mg CR
[2024-11-10 08:22] LABS: Bacteria Urine TRACE /hpf; UA Manual Slide Review YES
== END 2024-11-10 07:18 | disposition home or self-care (01) ==
LOC: LAB 07:21
PROVIDERS: PCP Internal Medicine; Referring Provider Internal Medicine; Visit Provider Internal Medicine
DX: Z48.22 Encounter for aftercare following kidney transplant (principal); Z79.899 Other long term (current) drug therapy; Z94.0 Kidney transplant status
CPT/HCPCS: 36415; 80069; 80197; 81001; 82570; 83735; 84156; 85025; 87496; 87798

== ENCOUNTER 2024-11-17 07:22 | Outpatient (CLI) | payer MEDICARE, MEDICAID, SELFPAY ==
[2024-11-17 08:05] LABS: Basophils # 0.1 10^3/uL (0.0-0.1); Basophils % 0.8 %; Eosinophils # 0.1 10^3/uL (0.0-0.8); Eosinophils % 1.2 %; Hematocrit 35.8 % (37-53); Lymphocytes # 1.8 10^3/uL (0.8-4.8); Lymphocytes % 23.9 %; Mean Corpuscular HGB Conc 31.6 g/dL (30-55); Mean Corpuscular Hemoglobin 29.8 pg (27-33); Mean Corpuscular Volume 94.5 fl (82-101); Mean Platelet Volume 8.7 fL (7.4-10.4); Monocytes # 0.7 10^3/uL (0.2-0.9); Monocytes % 9.1 %; Neutrophils % 61.6 %; Nucleated Red Blood Cells % 0 %; Platelet Count 165 10^3/cmm (157-399); Red Blood Count 3.79 10^6/uL (3.85-5.65); Red Cell Distribution Width 14.5 % (12.1-15.1); White Blood Count 7.46 10^3/uL (3.29-11.43)
[2024-11-17 08:09] LABS: Bilirubin Urine Negative (Negative); Blood Urine Negative (Negative); Glucose Urine UA Negative (Normal); Ketones Urine Negative (Negative); Leukocyte Esterase Urine Negative (Negative); Nitrate Urine Negative (Negative); Protein Urine Negative (Negative); Specific Gravity, Urine 1.012 (1.005-1.030); Urine Appearance Clear (CLEAR); Urine Color Yellow (Yellow); Urobilinogen Urine 0.2 mg/dL (Negative)
[2024-11-17 08:26] LABS: Albumin Level 4.2 g/dL (3.5-5.2); Anion Gap 11.6 (5-19); Blood Urea Nitrogen 23 mg/dL (8-23); Calcium 9.8 mg/dL (8.5-10.5); Carbon Dioxide 26 mmol/L (22-29); Chloride 99 mmol/L (98-107); Glomerular Filtration Rate 36.1 mL/min (90-130); Glucose 104 mg/dL (65-115); Magnesium 2.1 mg/dL (1.7-2.3); Phosphorus 2.3 mg/dL (2.5-4.5); Potassium 4.6 mmol/L (3.5-5.1); Sodium 132 mmol/L (136-145)
[2024-11-17 08:29] LABS: Urine Creatinine 61 mg/dL (39-259); Urine Protein Random 5 mg/dL
[2024-11-17 08:33] LABS: UPRO/UCREAT Ratio 0.08 mg/mg CR
[2024-11-17 08:43] LABS: Add Urine Culture? No; WBC Urine 0-4 /hpf (0-5)
== END 2024-11-17 07:23 | disposition home or self-care (01) ==
LOC: LAB 07:24
PROVIDERS: PCP Internal Medicine; Visit Provider Internal Medicine
DX: Z48.22 Encounter for aftercare following kidney transplant (principal); Z79.899 Other long term (current) drug therapy; Z94.0 Kidney transplant status
CPT/HCPCS: 36415; 80069; 80197; 81001; 82570; 83735; 84156; 85025; 87496; 87798

== ENCOUNTER 2024-11-24 07:17 | Outpatient (CLI) | payer MEDICARE, MEDICAID, SELFPAY ==
[2024-11-24 07:58] LABS: Basophils % 0.5 %; Eosinophils # 0.1 10^3/uL (0.0-0.8); Eosinophils % 0.8 %; Hematocrit 35.9 % (37-53); Lymphocytes # 1.4 10^3/uL (0.8-4.8); Lymphocytes % 22.6 %; Mean Corpuscular HGB Conc 31.5 g/dL (30-55); Mean Corpuscular Hemoglobin 29.4 pg (27-33); Mean Corpuscular Volume 93.5 fl (82-101); Mean Platelet Volume 8.6 fL (7.4-10.4); Monocytes # 0.6 10^3/uL (0.2-0.9); Monocytes % 9.6 %; Neutrophils # 4.11 10^3/uL (1.8-7.7); Neutrophils % 64.8 %; Nucleated Red Blood Cells % 0 %; Platelet Count 128 10^3/cmm (157-399); Red Blood Count 3.84 10^6/uL (3.85-5.65); Red Cell Distribution Width 14.3 % (12.1-15.1); White Blood Count 6.34 10^3/uL (3.29-11.43)
[2024-11-24 07:59] LABS: Bilirubin Urine Negative (Negative); Blood Urine Negative (Negative); Glucose Urine UA Negative (Normal); Ketones Urine Negative (Negative); Leukocyte Esterase Urine Negative (Negative); Nitrate Urine Negative (Negative); Protein Urine Negative (Negative); Specific Gravity, Urine 1.011 (1.005-1.030); Urine Appearance Clear (CLEAR); Urobilinogen Urine 0.2 mg/dL (Negative); pH Urine 5.5 (5-7)
[2024-11-24 08:04] LABS: Bacteria Urine None Seen /hpf; Hyaline Casts Urine 0-4 /lpf; RBC Urine 0-2 /hpf (0-2); Squamous Epithelial Cell Urine 0-5 /hpf (0-5); WBC Urine 0-5 /hpf (0-5)
[2024-11-24 08:14] LABS: Urine Creatinine 96 mg/dL (39-259); Urine Protein Random 5 mg/dL
[2024-11-24 08:16] LABS: UPRO/UCREAT Ratio 0.05 mg/mg CR
[2024-11-24 08:17] LABS: Albumin Level 4.2 g/dL (3.5-5.2); Anion Gap 13.4 (5-19); Blood Urea Nitrogen 20 mg/dL (8-23); Carbon Dioxide 24 mmol/L (22-29); Chloride 100 mmol/L (98-107); Glomerular Filtration Rate 36.1 mL/min (90-130); Glucose 98 mg/dL (65-115); Magnesium 1.8 mg/dL (1.7-2.3); Phosphorus 2.6 mg/dL (2.5-4.5); Potassium 4.4 mmol/L (3.5-5.1); Sodium 133 mmol/L (136-145)
[2024-11-24 08:20] LABS: Urine Color Orange (Yellow)
== END 2024-11-24 07:18 | disposition home or self-care (01) ==
LOC: LAB 07:19
PROVIDERS: PCP Internal Medicine; Visit Provider Internal Medicine
DX: Z94.0 Kidney transplant status (principal); Z79.899 Other long term (current) drug therapy; Z48.22 Encounter for aftercare following kidney transplant
CPT/HCPCS: 36415; 80069; 80197; 81001; 82570; 83735; 84156; 85025; 87496; 87798

== ENCOUNTER 2024-11-27 10:10 | Outpatient (CLI) | payer MEDICAID, MEDICARE, SELFPAY ==
[2024-11-27 11:47] LABS: C.Diff PCR (Lab) NEGATIVE (Negative)
[2024-11-28 17:54] LABS: Campylobacter Group NOT DETECTED (NOT DETECTED); Norovirus GI/GII NOT DETECTED (NOT DETECTED); Rotavirus A NOT DETECTED (NOT DETECTED); Shiga Toxin 1 NOT DETECTED (NOT DETECTED); Shigella Species NOT DETECTED (NOT DETECTED); Vibrio Group NOT DETECTED (NOT DETECTED); Yersinia Enterocolotica NOT DETECTED (NOT DETECTED)
== END 2024-11-27 10:11 | disposition home or self-care (01) ==
LOC: LAB 10:21
PROVIDERS: PCP Internal Medicine
DX: Z48.22 Encounter for aftercare following kidney transplant (principal); Z79.899 Other long term (current) drug therapy; R19.7 Diarrhea, unspecified; Z91.89 Other specified personal risk factors, not elsewhere classified; T86.10 Unspecified complication of kidney transplant; Z94.0 Kidney transplant status
CPT/HCPCS: 87493; 87506

== ENCOUNTER 2024-12-01 07:05 | Outpatient (CLI) | payer MEDICARE, MEDICAID, SELFPAY ==
[2024-12-01 08:25] LABS: Basophils % 0.6 %; Eosinophils # 0.1 10^3/uL (0.0-0.8); Eosinophils % 0.7 %; Hematocrit 36.8 % (37-53); Lymphocytes # 1.3 10^3/uL (0.8-4.8); Lymphocytes % 18.1 %; Mean Corpuscular HGB Conc 32.1 g/dL (30-55); Mean Corpuscular Hemoglobin 29.4 pg (27-33); Mean Corpuscular Volume 91.5 fl (82-101); Monocytes # 0.8 10^3/uL (0.2-0.9); Neutrophils # 4.49 10^3/uL (1.8-7.7); Neutrophils % 65.3 %; Nucleated Red Blood Cells % 0 %; Platelet Count 162 10^3/cmm (157-399); Red Blood Count 4.02 10^6/uL (3.85-5.65); Red Cell Distribution Width 14.1 % (12.1-15.1); White Blood Count 6.89 10^3/uL (3.29-11.43)
[2024-12-01 08:43] LABS: Bilirubin Urine Negative (Negative); Blood Urine Negative (Negative); Glucose Urine UA Negative (Normal); Ketones Urine Negative (Negative); Leukocyte Esterase Urine Negative (Negative); Nitrate Urine Negative (Negative); Protein Urine Negative (Negative); Specific Gravity, Urine 1.012 (1.005-1.030); Urine Appearance Clear (CLEAR); Urobilinogen Urine 0.2 mg/dL (Negative); pH Urine 5.5 (5-7)
[2024-12-01 08:47] LABS: Albumin Level 4.4 g/dL (3.5-5.2); Anion Gap 15.6 (5-19); Blood Urea Nitrogen 25 mg/dL (8-23); Calcium 10.3 mg/dL (8.5-10.5); Carbon Dioxide 23 mmol/L (22-29); Chloride 99 mmol/L (98-107); Glucose 110 mg/dL (65-115); Magnesium 1.9 mg/dL (1.7-2.3); Phosphorus 2.6 mg/dL (2.5-4.5); Potassium 4.6 mmol/L (3.5-5.1); Sodium 133 mmol/L (136-145)
[2024-12-01 08:48] LABS: Bacteria Urine None Seen /hpf; Hyaline Casts Urine 0.81 /lpf; RBC Urine 0-2 /hpf (0-2); Squamous Epithelial Cell Urine 0-5 /hpf (0-5); WBC Urine 0-5 /hpf (0-5)
[2024-12-01 08:52] LABS: Add Urine Culture? No; Urine Color Yellow (Yellow)
[2024-12-01 09:01] LABS: Urine Creatinine 106 mg/dL (39-259); Urine Protein Random 6 mg/dL
[2024-12-01 09:02] LABS: UPRO/UCREAT Ratio 0.06 mg/mg CR
[2024-12-01 09:51] LABS: Allosure Kit Fed Ex See Scanned Lab Rpt
[2024-12-02 15:33] LABS: Tacrolimus, Highly Sensitive 11.5 mcg/L
[2024-12-03 21:16] LABS: CMV DNA By PCR Not Detected (Not Detected); CMV DNA, QN PCR Not Detected Log IU/mL (Not Detected)
[2024-12-03 22:43] LABS: BK VIRUS DNA, QN PCR Not Detected (Not Detected); BK VIRUS DNA, QN RT PCR Not Detected Log IU/mL (Not Detected)
== END 2024-12-01 07:06 | disposition home or self-care (01) ==
LOC: LAB 07:10
PROVIDERS: PCP Internal Medicine; Visit Provider Internal Medicine
DX: Z48.22 Encounter for aftercare following kidney transplant (principal); Z79.899 Other long term (current) drug therapy; Z94.0 Kidney transplant status
CPT/HCPCS: 36415; 80069; 80197; 81001; 82570; 83735; 84156; 85025; 87496; 87798

== ENCOUNTER 2024-12-15 07:08 | Outpatient (CLI) | payer MEDICARE, MEDICAID, SELFPAY ==
[2024-12-15 07:58] LABS: Basophils % 0.5 %; Eosinophils % 0.5 %; Hematocrit 35.5 % (37-53); Lymphocytes % 15.8 %; Mean Corpuscular HGB Conc 31.5 g/dL (30-55); Mean Corpuscular Hemoglobin 29.8 pg (27-33); Mean Corpuscular Volume 94.4 fl (82-101); Mean Platelet Volume 8.5 fL (7.4-10.4); Monocytes # 0.7 10^3/uL (0.2-0.9); Monocytes % 10.8 %; Neutrophils # 4.32 10^3/uL (1.8-7.7); Neutrophils % 70.9 %; Nucleated Red Blood Cells % 0 %; Platelet Count 121 10^3/cmm (157-399); Red Blood Count 3.76 10^6/uL (3.85-5.65); Red Cell Distribution Width 14.4 % (12.1-15.1); White Blood Count 6.09 10^3/uL (3.29-11.43)
[2024-12-15 08:16] LABS: Calcium 9.6 mg/dL (8.5-10.5)
[2024-12-15 08:24] LABS: Parathyroid Hormone 149.1 pg/mL (15-65)
[2024-12-15 08:28] LABS: Add Urine Culture? No; Bilirubin Urine Neg (Negative); Blood Urine Neg (Negative); Glucose Urine UA Norm (Normal); Ketones Urine Negative (Negative); Leukocyte Esterase Urine Negative (Negative); Nitrate Urine Negative (Negative); Protein Urine Neg (Negative); RBC Urine 0-4 /hpf (0-2); Squamous Epithelial Cell Urine RARE /hpf (0-5); UA Manual Slide Review YES; Urine Appearance Clear (CLEAR); Urine Color Yellow (Yellow); Urobilinogen Urine Norm (Negative); WBC Urine RARE /hpf (0-5); pH Urine 5 (5-7)
[2024-12-15 08:44] LABS: Creatinine Urine, Random 77 mg/dL (39-259); Microalbum Creatinine Ratio Ur 13 mg/dL (0-20); Microalbumin Random Urine 1 ug/dL (0-20)
[2024-12-15 09:25] LABS: Albumin Level 4.3 g/dL (3.5-5.2); Anion Gap 16.8 (5-19); Blood Urea Nitrogen 30 mg/dL (8-23); Calcium 9.7 mg/dL (8.5-10.5); Carbon Dioxide 21 mmol/L (22-29); Chloride 103 mmol/L (98-107); Glomerular Filtration Rate 38.4 mL/min (90-130); Glucose 99 mg/dL (65-115); Phosphorus 2.5 mg/dL (2.5-4.5); Potassium 4.8 mmol/L (3.5-5.1); Sodium 136 mmol/L (136-145)
[2024-12-16 15:30] LABS: Tacrolimus, Highly Sensitive 8.1 mcg/L
== END 2024-12-15 07:09 | disposition home or self-care (01) ==
LOC: LAB 07:12
PROVIDERS: PCP Internal Medicine; Visit Provider Internal Medicine Nephrology
DX: Z48.22 Encounter for aftercare following kidney transplant (principal); Z79.899 Other long term (current) drug therapy; Z94.0 Kidney transplant status
CPT/HCPCS: 80069; 80197; 81001; 82044; 82310; 83735; 83970; 85025; 87798

== ENCOUNTER 2024-12-29 07:05 | Outpatient (CLI) | payer MEDICARE, MEDICAID, SELFPAY ==
[2024-12-29 08:25] LABS: Basophils % 0.8 %; Eosinophils # 0.1 10^3/uL (0.0-0.8); Eosinophils % 1.2 %; Hematocrit 34.7 % (37-53); Lymphocytes # 0.8 10^3/uL (0.8-4.8); Lymphocytes % 15.4 %; Mean Corpuscular HGB Conc 30.5 g/dL (30-55); Mean Corpuscular Hemoglobin 30.1 pg (27-33); Mean Corpuscular Volume 98.6 fl (82-101); Mean Platelet Volume 8.8 fL (7.4-10.4); Monocytes # 0.6 10^3/uL (0.2-0.9); Monocytes % 11.2 %; Neutrophils # 3.47 10^3/uL (1.8-7.7); Neutrophils % 69.6 %; Nucleated Red Blood Cells % 0 %; Platelet Count 127 10^3/cmm (157-399); Red Blood Count 3.52 10^6/uL (3.85-5.65); Red Cell Distribution Width 14.6 % (12.1-15.1); White Blood Count 4.99 10^3/uL (3.29-11.43)
[2024-12-29 08:38] LABS: Bacteria Urine None Seen /hpf; Hyaline Casts Urine 0-4 /lpf; RBC Urine 0-2 /hpf (0-2); Squamous Epithelial Cell Urine 0-5 /hpf (0-5); WBC Urine 0-5 /hpf (0-5)
[2024-12-29 08:49] LABS: Anion Gap 13.6 (5-19); Blood Urea Nitrogen 37 mg/dL (8-23); Calcium 9.6 mg/dL (8.5-10.5); Carbon Dioxide 23 mmol/L (22-29); Chloride 104 mmol/L (98-107); Glomerular Filtration Rate 32.2 mL/min (90-130); Glucose 98 mg/dL (65-115); Magnesium 1.9 mg/dL (1.7-2.3); Phosphorus 2.8 mg/dL (2.5-4.5); Potassium 4.6 mmol/L (3.5-5.1); Sodium 136 mmol/L (136-145)
[2024-12-29 08:55] LABS: Add Urine Culture? No; Add Urine Microscopic? YES; Bilirubin Urine Neg (Negative); Blood Urine Neg (Negative); Glucose Urine UA Norm (Normal); Ketones Urine Negative (Negative); Leukocyte Esterase Urine Negative (Negative); Nitrate Urine Negative (Negative); Protein Urine Neg (Negative); Urine Appearance Clear (CLEAR); Urine Color Yellow (Yellow); Urobilinogen Urine Norm (Negative); pH Urine 6 (5-7)
[2024-12-29 09:11] LABS: Creatinine Urine, Random 56 mg/dL (39-259); Microalbum Creatinine Ratio Ur 18 mg/dL (0-20); Microalbumin Random Urine 1 ug/dL (0-20)
== END 2024-12-29 07:06 | disposition home or self-care (01) ==
PROVIDERS: PCP Internal Medicine; Visit Provider Internal Medicine
DX: Z48.22 Encounter for aftercare following kidney transplant (principal); Z79.899 Other long term (current) drug therapy; Z94.0 Kidney transplant status
CPT/HCPCS: 36415; 80069; 80197; 81001; 82044; 83735; 85025; 87496; 87798

== ENCOUNTER 2025-01-07 07:15 | Outpatient (CLI) | payer MEDICARE, MEDICAID, SELFPAY ==
[2025-01-07 08:55] LABS: Bilirubin Urine Negative (Negative); Blood Urine Negative (Negative); Glucose Urine UA Negative (Normal); Ketones Urine Negative (Negative); Leukocyte Esterase Urine Negative (Negative); Nitrate Urine Negative (Negative); Protein Urine Negative (Negative); Specific Gravity, Urine 1.015 (1.005-1.030); Urine Appearance Clear (CLEAR); Urine Color Yellow (Yellow); Urobilinogen Urine 0.2 mg/dL (Negative); pH Urine 6.5 (5-7)
[2025-01-07 08:56] LABS: Miscellaneous Test See Scanned Lab Rpt
[2025-01-07 09:01] LABS: Basophils % 0.9 %; Eosinophils # 0.1 10^3/uL (0.0-0.8); Eosinophils % 1.5 %; Hematocrit 34.9 % (37-53); Lymphocytes # 0.9 10^3/uL (0.8-4.8); Lymphocytes % 19.1 %; Mean Corpuscular HGB Conc 30.4 g/dL (30-55); Mean Corpuscular Hemoglobin 29.6 pg (27-33); Mean Corpuscular Volume 97.5 fl (82-101); Mean Platelet Volume 9.2 fL (7.4-10.4); Monocytes # 0.6 10^3/uL (0.2-0.9); Neutrophils # 2.97 10^3/uL (1.8-7.7); Neutrophils % 64.4 %; Nucleated Red Blood Cells % 0 %; Platelet Count 137 10^3/cmm (157-399); Red Blood Count 3.58 10^6/uL (3.85-5.65); Red Cell Distribution Width 13.8 % (12.1-15.1); White Blood Count 4.61 10^3/uL (3.29-11.43)
[2025-01-07 09:22] LABS: Creatinine Urine, Random 83 mg/dL (39-259); Microalbum Creatinine Ratio Ur 12 mg/dL (0-20); Microalbumin Random Urine 1 ug/dL (0-20)
[2025-01-07 09:26] LABS: Albumin Level 4.2 g/dL (3.5-5.2); Anion Gap 13.8 (5-19); Blood Urea Nitrogen 28 mg/dL (8-23); Calcium 9.6 mg/dL (8.5-10.5); Carbon Dioxide 25 mmol/L (22-29); Chloride 106 mmol/L (98-107); Glomerular Filtration Rate 38.4 mL/min (90-130); Glucose 96 mg/dL (65-115); Magnesium 2.2 mg/dL (1.7-2.3); Potassium 4.8 mmol/L (3.5-5.1); Sodium 140 mmol/L (136-145)
[2025-01-08 15:20] LABS: Tacrolimus, Highly Sensitive 5.4 mcg/L
== END 2025-01-07 07:16 | disposition home or self-care (01) ==
LOC: LAB 07:21
PROVIDERS: PCP Internal Medicine; Visit Provider Internal Medicine
DX: Z48.22 Encounter for aftercare following kidney transplant (principal); Z79.899 Other long term (current) drug therapy; Z94.0 Kidney transplant status
CPT/HCPCS: 36415; 80069; 80197; 81001; 82044; 83735; 85025; 87496; 87798

== ENCOUNTER 2025-01-19 07:19 | Outpatient (CLI) | payer MEDICARE, MEDICAID, SELFPAY ==
[2025-01-19 08:03] LABS: Basophils % 0.7 %; Eosinophils # 0.1 10^3/uL (0.0-0.8); Eosinophils % 1.4 %; Hematocrit 36.2 % (37-53); Lymphocytes # 0.8 10^3/uL (0.8-4.8); Lymphocytes % 18.1 %; Mean Corpuscular HGB Conc 31.5 g/dL (30-55); Mean Corpuscular Hemoglobin 29.8 pg (27-33); Mean Corpuscular Volume 94.8 fl (82-101); Mean Platelet Volume 8.7 fL (7.4-10.4); Monocytes # 0.5 10^3/uL (0.2-0.9); Neutrophils # 2.88 10^3/uL (1.8-7.7); Neutrophils % 66.6 %; Nucleated Red Blood Cells % 0 %; Platelet Count 121 10^3/cmm (157-399); Red Blood Count 3.82 10^6/uL (3.85-5.65); Red Cell Distribution Width 13.2 % (12.1-15.1); White Blood Count 4.32 10^3/uL (3.29-11.43)
[2025-01-19 08:25] LABS: Albumin Level 4.2 g/dL (3.5-5.2); Anion Gap 14.6 (5-19); Blood Urea Nitrogen 21 mg/dL (8-23); Calcium 9.9 mg/dL (8.5-10.5); Carbon Dioxide 23 mmol/L (22-29); Chloride 104 mmol/L (98-107); Glomerular Filtration Rate 38.4 mL/min (90-130); Glucose 108 mg/dL (65-115); Magnesium 1.9 mg/dL (1.7-2.3); Phosphorus 2.5 mg/dL (2.5-4.5); Potassium 4.6 mmol/L (3.5-5.1); Sodium 137 mmol/L (136-145)
[2025-01-19 08:42] LABS: Add Urine Microscopic? YES; Bilirubin Urine Neg (Negative); Blood Urine Neg (Negative); Glucose Urine UA Norm (Normal); Ketones Urine Negative (Negative); Leukocyte Esterase Urine Negative (Negative); Nitrate Urine Negative (Negative); Protein Urine Neg (Negative); UA Manual Slide Review YES; Urine Appearance Clear (CLEAR); Urine Color Yellow (Yellow); Urobilinogen Urine Norm (Negative); pH Urine 6 (5-7)
[2025-01-19 08:43] LABS: Add Urine Culture? No; RBC Urine 0-4 /hpf (0-2)
[2025-01-19 08:45] LABS: Creatinine Urine, Random 45 mg/dL (39-259); Microalbum Creatinine Ratio Ur 22 mg/dL (0-20); Microalbumin Random Urine 1 ug/dL (0-20)
[2025-01-20 12:50] LABS: Tacrolimus, Highly Sensitive 7.7 mcg/L
== END 2025-01-19 07:20 | disposition home or self-care (01) ==
LOC: LAB 07:23
PROVIDERS: PCP Internal Medicine; Visit Provider Internal Medicine
DX: Z48.22 Encounter for aftercare following kidney transplant (principal); Z79.899 Other long term (current) drug therapy; Z94.0 Kidney transplant status
CPT/HCPCS: 36415; 80069; 80197; 81001; 82044; 83735; 85025; 87496; 87798

== ENCOUNTER 2025-01-27 07:10 | Outpatient (CLI) | payer MEDICARE, MEDICAID, SELFPAY ==
[2025-01-27 07:57] LABS: Basophils % 0.8 %; Eosinophils # 0.1 10^3/uL (0.0-0.8); Eosinophils % 1.2 %; Hematocrit 36.2 % (37-53); Lymphocytes # 0.6 10^3/uL (0.8-4.8); Lymphocytes % 12.2 %; Mean Corpuscular HGB Conc 31.5 g/dL (30-55); Mean Corpuscular Hemoglobin 29.5 pg (27-33); Mean Corpuscular Volume 93.8 fl (82-101); Mean Platelet Volume 8.6 fL (7.4-10.4); Monocytes # 0.6 10^3/uL (0.2-0.9); Monocytes % 10.7 %; Neutrophils # 3.82 10^3/uL (1.8-7.7); Neutrophils % 74.1 %; Nucleated Red Blood Cells % 0 %; Platelet Count 129 10^3/cmm (157-399); Red Blood Count 3.86 10^6/uL (3.85-5.65); Red Cell Distribution Width 12.9 % (12.1-15.1); White Blood Count 5.15 10^3/uL (3.29-11.43)
[2025-01-27 08:00] LABS: Bilirubin Urine Negative (Negative); Blood Urine Negative (Negative); Glucose Urine UA Negative (Normal); Ketones Urine Negative (Negative); Leukocyte Esterase Urine Negative (Negative); Nitrate Urine Negative (Negative); Protein Urine Negative (Negative); Specific Gravity, Urine 1.011 (1.005-1.030); Urine Appearance Clear (CLEAR); Urine Color Yellow (Yellow)
[2025-01-27 08:05] LABS: Bacteria Urine None Seen /hpf; Hyaline Casts Urine 0-4 /lpf; RBC Urine 0-2 /hpf (0-2); Squamous Epithelial Cell Urine 0-5 /hpf (0-5); WBC Urine 0-5 /hpf (0-5)
[2025-01-27 08:19] LABS: Albumin Level 4.2 g/dL (3.5-5.2); Anion Gap 15.7 (5-19); Blood Urea Nitrogen 22 mg/dL (8-23); Calcium 9.5 mg/dL (8.5-10.5); Carbon Dioxide 21 mmol/L (22-29); Chloride 101 mmol/L (98-107); Glomerular Filtration Rate 38.4 mL/min (90-130); Glucose 97 mg/dL (65-115); Magnesium 1.8 mg/dL (1.7-2.3); Phosphorus 3.1 mg/dL (2.5-4.5); Potassium 4.7 mmol/L (3.5-5.1); Sodium 133 mmol/L (136-145)
== END 2025-01-27 07:11 | disposition home or self-care (01) ==
PROVIDERS: PCP Internal Medicine; Visit Provider Internal Medicine Nephrology
DX: Z48.22 Encounter for aftercare following kidney transplant (principal); Z79.899 Other long term (current) drug therapy; Z94.0 Kidney transplant status
CPT/HCPCS: 36415; 80069; 80197; 81001; 83735; 85025; 87086; 87496; 87798

== ENCOUNTER 2025-02-12 07:16 | Outpatient (CLI) | payer MEDICARE, MEDICAID, SELFPAY ==
[2025-02-12 09:45] LABS: Bilirubin Urine Negative (Negative); Blood Urine Negative (Negative); Glucose Urine UA Negative (Normal); Ketones Urine Negative (Negative); Leukocyte Esterase Urine Negative (Negative); Nitrate Urine Negative (Negative); Protein Urine Negative (Negative); Specific Gravity, Urine 1.012 (1.005-1.030); Urine Appearance Clear (CLEAR); Urine Color Yellow (Yellow)
[2025-02-12 09:50] LABS: Add Urine Microscopic? YES; Bacteria Urine None Seen /hpf; Hyaline Casts Urine 0-4 /lpf; RBC Urine 0-2 /hpf (0-2); Squamous Epithelial Cell Urine 0-5 /hpf (0-5); WBC Urine 0-5 /hpf (0-5)
[2025-02-12 09:53] LABS: Albumin Level 4.1 g/dL (3.5-5.2); Anion Gap 16.3 (5-19); Blood Urea Nitrogen 29 mg/dL (8-23); Calcium 9.7 mg/dL (8.5-10.5); Carbon Dioxide 22 mmol/L (22-29); Chloride 103 mmol/L (98-107); Glomerular Filtration Rate 32.2 mL/min (90-130); Glucose 91 mg/dL (65-115); Magnesium 1.9 mg/dL (1.7-2.3); Phosphorus 2.7 mg/dL (2.5-4.5); Potassium 4.3 mmol/L (3.5-5.1); Sodium 137 mmol/L (136-145)
[2025-02-12 10:08] LABS: Basophils % 0.9 %; Eosinophils # 0.1 10^3/uL (0.0-0.8); Eosinophils % 1.6 %; Hematocrit 37.7 % (37-53); Lymphocytes # 0.8 10^3/uL (0.8-4.8); Lymphocytes % 16.9 %; Mean Corpuscular HGB Conc 30.5 g/dL (30-55); Mean Corpuscular Hemoglobin 29.1 pg (27-33); Mean Corpuscular Volume 95.4 fl (82-101); Mean Platelet Volume 8.9 fL (7.4-10.4); Monocytes # 0.5 10^3/uL (0.2-0.9); Monocytes % 10.2 %; Neutrophils # 3.06 10^3/uL (1.8-7.7); Neutrophils % 67.7 %; Nucleated Red Blood Cells % 0 %; Platelet Count 122 10^3/cmm (157-399); Red Blood Count 3.95 10^6/uL (3.85-5.65); White Blood Count 4.51 10^3/uL (3.29-11.43)
[2025-02-12 10:52] LABS: Creatinine Urine, Random 67 mg/dL (39-259); Microalbum Creatinine Ratio Ur 15 mg/dL (0-20); Microalbumin Random Urine 1 ug/dL (0-20)
[2025-02-13 15:19] LABS: Tacrolimus, Highly Sensitive 8.2 mcg/L
== END 2025-02-12 07:17 | disposition home or self-care (01) ==
PROVIDERS: PCP Internal Medicine; Visit Provider Internal Medicine Nephrology
DX: Z48.22 Encounter for aftercare following kidney transplant (principal); Z79.899 Other long term (current) drug therapy; Z94.0 Kidney transplant status
CPT/HCPCS: 36415; 80069; 80197; 81001; 82044; 83735; 85025; 87496; 87798

== ENCOUNTER 2025-02-23 07:26 | Outpatient (CLI) | payer MEDICARE, MEDICAID, SELFPAY ==
[2025-02-23 08:06] LABS: Hematocrit 37.1 % (37-53); Mean Corpuscular Hemoglobin 29.9 pg (27-33); Mean Corpuscular Volume 96.4 fl (82-101); Mean Platelet Volume 9.1 fL (7.4-10.4); Platelet Count 116 10^3/cmm (157-399); Red Blood Count 3.85 10^6/uL (3.85-5.65); Red Cell Distribution Width 13.3 % (12.1-15.1); White Blood Count 4.85 10^3/uL (3.29-11.43)
[2025-02-23 08:14] LABS: Bilirubin Urine Negative (Negative); Blood Urine Negative (Negative); Glucose Urine UA Negative (Normal); Ketones Urine Negative (Negative); Leukocyte Esterase Urine Negative (Negative); Nitrate Urine Negative (Negative); Protein Urine Negative (Negative); Specific Gravity, Urine 1.014 (1.005-1.030); Urine Appearance Clear (CLEAR); Urine Color Yellow (Yellow); Urobilinogen Urine 0.2 mg/dL (Negative)
[2025-02-23 08:16] LABS: Add Urine Microscopic? YES; Bacteria Urine None Seen /hpf; Hyaline Casts Urine 0-4 /lpf; RBC Urine 0-2 /hpf (0-2); Squamous Epithelial Cell Urine 0-5 /hpf (0-5); WBC Urine 0-5 /hpf (0-5)
[2025-02-23 08:23] LABS: Blood Urea Nitrogen 34 mg/dL (8-23); Calcium 9.4 mg/dL (8.5-10.5); Carbon Dioxide 22 mmol/L (22-29); Chloride 105 mmol/L (98-107); Glomerular Filtration Rate 30.5 mL/min (90-130); Glucose 96 mg/dL (65-115); Magnesium 1.9 mg/dL (1.7-2.3); Phosphorus 3.8 mg/dL (2.5-4.5); Sodium 135 mmol/L (136-145)
[2025-02-23 08:30] LABS: Anion Gap 12.7 (5-19); Potassium 4.7 mmol/L (3.5-5.1)
[2025-02-23 08:41] LABS: Urine Creatinine 82 mg/dL (39-259)
[2025-02-23 08:45] LABS: Absolute Eosinophils 0.1 10^3/cmm (0.0-0.7); Absolute Segmented Neutrophil 2.4 10/cmm (1.6-7.1); Band Neutrophils Absolute 0.4 10^3/cmm (0.0-1.2); Eosinophils 3 %; Lymphocytes 21 %; Monocytes Absolute 0.2 10^3/cmm (0.1-0.6); Segmented Neutrophils 50 %; Total Cells Counted 100 (0-100)
[2025-02-23 08:46] LABS: Absolute Neutrophil 2.9 10^3/cmm (1.4-6.5); Platelet Estimate Decreased (Normal)
[2025-02-23 09:24] LABS: Total Protein, Random Urine 5.5 mg/dL (0.0-20.0)
[2025-02-24 19:00] LABS: Tacrolimus, Highly Sensitive 7.1 mcg/L
[2025-02-25 13:50] LABS: CMV DNA By PCR 35 IU/mL (Not Detected); CMV DNA, QN PCR 1.54 Log IU/mL (Not Detected)
[2025-02-25 14:25] LABS: BK VIRUS DNA, QN PCR Not Detected (Not Detected); BK VIRUS DNA, QN RT PCR Not Detected Log IU/mL (Not Detected)
== END 2025-02-23 07:27 | disposition home or self-care (01) ==
PROVIDERS: PCP Internal Medicine; Visit Provider Internal Medicine Nephrology
DX: Z48.22 Encounter for aftercare following kidney transplant (principal); Z79.899 Other long term (current) drug therapy; Z94.0 Kidney transplant status
CPT/HCPCS: 36415; 80069; 80197; 81001; 82570; 83735; 84156; 85007; 85027; 87496; 87798

== ENCOUNTER 2025-03-09 07:26 | Outpatient (CLI) | payer MEDICARE, MEDICAID, SELFPAY ==
[2025-03-09 08:08] LABS: Basophils % 0.9 %; Eosinophils # 0.1 10^3/uL (0.0-0.8); Eosinophils % 2.9 %; Hematocrit 38.6 % (37-53); Lymphocytes # 0.9 10^3/uL (0.8-4.8); Lymphocytes % 20.4 %; Mean Corpuscular HGB Conc 31.3 g/dL (30-55); Mean Corpuscular Hemoglobin 29.2 pg (27-33); Mean Corpuscular Volume 93.2 fl (82-101); Mean Platelet Volume 8.9 fL (7.4-10.4); Monocytes # 0.4 10^3/uL (0.2-0.9); Monocytes % 9.5 %; Neutrophils # 2.72 10^3/uL (1.8-7.7); Neutrophils % 61.5 %; Nucleated Red Blood Cells % 0 %; Platelet Count 138 10^3/cmm (157-399); Red Blood Count 4.14 10^6/uL (3.85-5.65); Red Cell Distribution Width 13.1 % (12.1-15.1); White Blood Count 4.42 10^3/uL (3.29-11.43)
[2025-03-09 08:14] LABS: Bilirubin Urine Negative (Negative); Blood Urine Negative (Negative); Glucose Urine UA Negative (Normal); Ketones Urine Negative (Negative); Leukocyte Esterase Urine Negative (Negative); Nitrate Urine Negative (Negative); Protein Urine Negative (Negative); Specific Gravity, Urine 1.011 (1.005-1.030); Urine Appearance Clear (CLEAR); Urine Color Yellow (Yellow); Urobilinogen Urine 0.2 mg/dL (Negative); pH Urine 5.5 (5-7)
[2025-03-09 08:19] LABS: Add Urine Microscopic? YES; Bacteria Urine None Seen /hpf; RBC Urine 0-2 /hpf (0-2); Squamous Epithelial Cell Urine 0-5 /hpf (0-5); WBC Urine 0-5 /hpf (0-5)
[2025-03-09 08:29] LABS: Albumin Level 4.1 g/dL (3.5-5.2); Anion Gap 16.6 (5-19); Blood Urea Nitrogen 21 mg/dL (8-23); Calcium 9.5 mg/dL (8.5-10.5); Carbon Dioxide 21 mmol/L (22-29); Chloride 107 mmol/L (98-107); Glomerular Filtration Rate 38.3 mL/min (90-130); Glucose 99 mg/dL (65-115); Phosphorus 2.7 mg/dL (2.5-4.5); Potassium 4.6 mmol/L (3.5-5.1); Sodium 140 mmol/L (136-145)
[2025-03-09 08:32] LABS: Creatinine Urine, Random 65 mg/dL (39-259); Microalbum Creatinine Ratio Ur 15 mg/dL (0-20); Microalbumin Random Urine 1 ug/dL (0-20)
[2025-03-10 15:30] LABS: Tacrolimus, Highly Sensitive 12.5 mcg/L
== END 2025-03-09 07:27 | disposition home or self-care (01) ==
PROVIDERS: PCP Internal Medicine; Visit Provider Internal Medicine Nephrology
DX: Z48.22 Encounter for aftercare following kidney transplant (principal); Z79.899 Other long term (current) drug therapy; Z94.0 Kidney transplant status
CPT/HCPCS: 36415; 80069; 80197; 81001; 82044; 83735; 85025; 87496; 87798

== ENCOUNTER 2025-03-24 07:37 | Outpatient (CLI) | payer MEDICARE, MEDICAID, SELFPAY ==
[2025-03-24 08:47] LABS: Hematocrit 39.7 % (37-53); Hemoglobin 12.20 g/dL (11.27-16.99); Mean Corpuscular HGB Conc 30.7 g/dL (30-55); Mean Corpuscular Hemoglobin 28.6 pg (27-33); Mean Corpuscular Volume 93.0 fl (82-101); Nucleated Red Blood Cells % 0 %; Platelet Count 133 10^3/cmm (157-399); Red Blood Count 4.27 10^6/uL (3.85-5.65); White Blood Count 4.59 10^3/uL (3.29-11.43)
[2025-03-24 08:49] LABS: Glucose Urine UA Negative (Normal); Nitrate Urine Negative (Negative); Specific Gravity, Urine 1.012 (1.005-1.030)
[2025-03-24 09:01] LABS: Albumin Level 4.0 g/dL (3.5-5.2); Anion Gap 14.5 (5-19); Blood Urea Nitrogen 25 mg/dL (8-23); Calcium 9.2 mg/dL (8.5-10.5); Carbon Dioxide 21 mmol/L (22-29); Chloride 105 mmol/L (98-107); Glucose 91 mg/dL (65-115); Magnesium 1.8 mg/dL (1.7-2.3); Potassium 4.5 mmol/L (3.5-5.1); Sodium 136 mmol/L (136-145)
[2025-03-24 09:10] LABS: Creatinine Urine, Random 69 mg/dL (39-259); Microalbum Creatinine Ratio Ur 14 mg/dL (0-20)
[2025-03-25 14:49] LABS: Tacrolimus, Highly Sensitive 8.8 mcg/L
[2025-03-26 22:34] LABS: CMV DNA By PCR Not Detected (Not Detected)
[2025-03-27] LABS: BK VIRUS DNA, QN PCR Not Detected (Not Detected); BK VIRUS DNA, QN RT PCR Not Detected Log IU/mL (Not Detected)
== END 2025-03-24 07:38 | disposition home or self-care (01) ==
LOC: LAB 07:43
PROVIDERS: PCP Internal Medicine; Visit Provider Internal Medicine
DX: Z01.89 Encounter for other specified special examinations (principal)
CPT/HCPCS: 36415; 80069; 80197; 81001; 82044; 83735; 85025; 87496; 87798

== ENCOUNTER 2025-04-07 08:07 | Outpatient (CLI) | payer MEDICARE, MEDICAID, SELFPAY ==
[2025-04-07 08:47] LABS: Hematocrit 41.9 % (37-53); Hemoglobin 13.00 g/dL (11.27-16.99); Mean Corpuscular HGB Conc 31.0 g/dL (30-55); Mean Corpuscular Hemoglobin 28.6 pg (27-33); Mean Corpuscular Volume 92.3 fl (82-101); Nucleated Red Blood Cells % 0 %; Platelet Count 135 10^3/cmm (157-399); Red Blood Count 4.54 10^6/uL (3.85-5.65); White Blood Count 5.84 10^3/uL (3.29-11.43)
[2025-04-07 08:49] LABS: Glucose Urine UA Negative (Normal); Nitrate Urine Negative (Negative); Specific Gravity, Urine 1.020 (1.005-1.030)
[2025-04-07 08:54] LABS: Add Urine Microscopic? YES
[2025-04-07 09:04] LABS: Creatinine Urine, Random 122 mg/dL (39-259); Microalbum Creatinine Ratio Ur 8 mg/dL (0-20)
[2025-04-07 09:11] LABS: Albumin Level 4.4 g/dL (3.5-5.2); Anion Gap 17.8 (5-19); Blood Urea Nitrogen 47 mg/dL (8-23); Calcium 9.7 mg/dL (8.5-10.5); Carbon Dioxide 19 mmol/L (22-29); Chloride 105 mmol/L (98-107); Glucose 99 mg/dL (65-115); Magnesium 2.1 mg/dL (1.7-2.3); Potassium 4.8 mmol/L (3.5-5.1); Sodium 137 mmol/L (136-145)
[2025-04-08 15:09] LABS: Tacrolimus, Highly Sensitive 4.7 mcg/L
== END 2025-04-07 08:08 | disposition home or self-care (01) ==
PROVIDERS: PCP Internal Medicine; Visit Provider Internal Medicine Nephrology
DX: Z48.22 Encounter for aftercare following kidney transplant (principal); Z79.899 Other long term (current) drug therapy
CPT/HCPCS: 80069; 80197; 81001; 82044; 83735; 85025; 87496; 87798

== ENCOUNTER 2025-04-13 08:05 | Outpatient (CLI) | payer MEDICARE, MEDICAID, SELFPAY ==
[2025-04-13 09:50] LABS: Hematocrit 41.3 % (37-53); Hemoglobin 13.00 g/dL (11.27-16.99); Mean Corpuscular HGB Conc 31.5 g/dL (30-55); Mean Corpuscular Hemoglobin 28.9 pg (27-33); Mean Corpuscular Volume 91.8 fl (82-101); Nucleated Red Blood Cells % 0 %; Platelet Count 131 10^3/cmm (157-399); Red Blood Count 4.50 10^6/uL (3.85-5.65); White Blood Count 5.58 10^3/uL (3.29-11.43)
[2025-04-13 10:15] LABS: Albumin Level 4.3 g/dL (3.5-5.2); Blood Urea Nitrogen 31 mg/dL (8-23); Calcium 9.6 mg/dL (8.5-10.5); Carbon Dioxide 21 mmol/L (22-29); Chloride 105 mmol/L (98-107); Glucose 90 mg/dL (65-115); Magnesium 2.1 mg/dL (1.7-2.3); Sodium 138 mmol/L (136-145)
[2025-04-13 10:16] LABS: Anion Gap 16.6 (5-19); Potassium 4.6 mmol/L (3.5-5.1)
[2025-04-13 10:21] LABS: Creatinine Urine, Random 66 mg/dL (39-259); Microalbum Creatinine Ratio Ur 15 mg/dL (0-20)
[2025-04-13 11:15] LABS: Glucose Urine UA Negative (Normal); Nitrate Urine Negative (Negative); Specific Gravity, Urine 1.012 (1.005-1.030)
[2025-04-13 11:20] LABS: Add Urine Microscopic? YES
[2025-04-14 17:04] LABS: Tacrolimus, Highly Sensitive 11.8 mcg/L
[2025-04-15 14:33] LABS: CMV DNA By PCR Not Detected (Not Detected)
[2025-04-15 14:55] LABS: BK VIRUS DNA, QN PCR Not Detected (Not Detected); BK VIRUS DNA, QN RT PCR Not Detected Log IU/mL (Not Detected)
== END 2025-04-13 08:06 | disposition home or self-care (01) ==
LOC: LAB 08:12
PROVIDERS: PCP Internal Medicine; Visit Provider Internal Medicine Nephrology
DX: Z48.22 Encounter for aftercare following kidney transplant (principal); Z79.899 Other long term (current) drug therapy
CPT/HCPCS: 36415; 80069; 80197; 81001; 82044; 83735; 85025; 87496; 87798

== ENCOUNTER 2025-04-27 08:20 | Outpatient (CLI) | payer MEDICARE, MEDICAID, SELFPAY ==
[2025-04-27 09:56] LABS: Hematocrit 41.4 % (37-53); Hemoglobin 13.00 g/dL (11.27-16.99); Mean Corpuscular HGB Conc 31.4 g/dL (30-55); Mean Corpuscular Hemoglobin 28.5 pg (27-33); Mean Corpuscular Volume 90.8 fl (82-101); Nucleated Red Blood Cells % 0 %; Platelet Count 141 10^3/cmm (157-399); Red Blood Count 4.56 10^6/uL (3.85-5.65); White Blood Count 4.51 10^3/uL (3.29-11.43)
[2025-04-27 10:13] LABS: Glucose Urine UA Negative (Normal); Nitrate Urine Negative (Negative); Specific Gravity, Urine 1.013 (1.005-1.030)
[2025-04-27 10:15] LABS: Albumin Level 4.3 g/dL (3.5-5.2); Anion Gap 13.7 (5-19); Blood Urea Nitrogen 30 mg/dL (8-23); Calcium 9.4 mg/dL (8.5-10.5); Carbon Dioxide 24 mmol/L (22-29); Chloride 105 mmol/L (98-107); Glucose 90 mg/dL (65-115); Magnesium 1.8 mg/dL (1.7-2.3); Potassium 4.7 mmol/L (3.5-5.1); Sodium 138 mmol/L (136-145)
[2025-04-27 10:15] LABS: Add Urine Microscopic? YES
[2025-04-27 10:30] LABS: Creatinine Urine, Random 84 mg/dL (39-259); Microalbum Creatinine Ratio Ur 12 mg/dL (0-20)
[2025-04-28 15:10] LABS: Tacrolimus, Highly Sensitive 12.8 mcg/L
== END 2025-04-27 08:21 | disposition home or self-care (01) ==
PROVIDERS: PCP Internal Medicine; Visit Provider Internal Medicine Nephrology
DX: Z79.899 Other long term (current) drug therapy (principal); Z94.0 Kidney transplant status; Z48.22 Encounter for aftercare following kidney transplant
CPT/HCPCS: 36415; 80069; 80197; 81001; 82044; 83735; 85025; 87496; 87798

== ENCOUNTER 2025-05-08 09:16 | Outpatient (CLI) | payer MEDICARE, MEDICAID, SELFPAY ==
[2025-05-08 09:50] LABS: Hematocrit 40.2 % (37-53); Hemoglobin 12.50 g/dL (11.27-16.99); Mean Corpuscular HGB Conc 31.1 g/dL (30-55); Mean Corpuscular Hemoglobin 28.5 pg (27-33); Mean Corpuscular Volume 91.8 fl (82-101); Nucleated Red Blood Cells % 0 %; Platelet Count 126 10^3/cmm (157-399); Red Blood Count 4.38 10^6/uL (3.85-5.65); White Blood Count 5.01 10^3/uL (3.29-11.43)
[2025-05-08 09:52] LABS: Glucose Urine UA Negative (Normal); Nitrate Urine Negative (Negative); Specific Gravity, Urine 1.016 (1.005-1.030)
[2025-05-08 09:56] LABS: Add Urine Microscopic? YES
[2025-05-08 10:10] LABS: UPRO/UCREAT Ratio 0.08 mg/mg CR
[2025-05-08 10:11] LABS: Albumin Level 4.1 g/dL (3.5-5.2); Anion Gap 13.6 (5-19); Blood Urea Nitrogen 33 mg/dL (8-23); Calcium 9.3 mg/dL (8.5-10.5); Carbon Dioxide 25 mmol/L (22-29); Chloride 103 mmol/L (98-107); Glucose 95 mg/dL (65-115); Magnesium 1.8 mg/dL (1.7-2.3); Potassium 4.6 mmol/L (3.5-5.1); Sodium 137 mmol/L (136-145)
[2025-05-09 13:43] LABS: Tacrolimus, Highly Sensitive 11.9 mcg/L
[2025-05-11 14:50] LABS: CMV DNA By PCR Not Detected (Not Detected)
[2025-05-11 15:58] LABS: BK VIRUS DNA, QN PCR Not Detected (Not Detected); BK VIRUS DNA, QN RT PCR Not Detected Log IU/mL (Not Detected)
== END 2025-05-08 09:17 | disposition home or self-care (01) ==
PROVIDERS: PCP Internal Medicine; Visit Provider Internal Medicine Nephrology
DX: Z79.899 Other long term (current) drug therapy (principal); Z94.0 Kidney transplant status
CPT/HCPCS: 36415; 80069; 80197; 81001; 82570; 83735; 84156; 85025; 87496; 87798

== ENCOUNTER 2025-05-19 07:51 | Outpatient (CLI) | payer MEDICARE, MEDICAID, SELFPAY ==
[2025-05-19 08:33] LABS: Hematocrit 41.2 % (37-53); Hemoglobin 12.90 g/dL (11.27-16.99); Mean Corpuscular HGB Conc 31.3 g/dL (30-55); Mean Corpuscular Hemoglobin 28.4 pg (27-33); Mean Corpuscular Volume 90.5 fl (82-101); Nucleated Red Blood Cells % 0 %; Platelet Count 124 10^3/cmm (157-399); Red Blood Count 4.55 10^6/uL (3.85-5.65); White Blood Count 4.10 10^3/uL (3.29-11.43)
[2025-05-19 08:55] LABS: Albumin Level 4.2 g/dL (3.5-5.2); Anion Gap 14.4 (5-19); Blood Urea Nitrogen 34 mg/dL (8-23); Calcium 9.6 mg/dL (8.5-10.5); Carbon Dioxide 23 mmol/L (22-29); Chloride 105 mmol/L (98-107); Glucose 92 mg/dL (65-115); Magnesium 1.9 mg/dL (1.7-2.3); Potassium 4.4 mmol/L (3.5-5.1); Sodium 138 mmol/L (136-145)
[2025-05-19 09:37] LABS: Glucose Urine UA Negative (Normal); Nitrate Urine Negative (Negative); Specific Gravity, Urine 1.015 (1.005-1.030)
[2025-05-19 09:42] LABS: Add Urine Microscopic? YES
[2025-05-19 10:38] LABS: UPRO/UCREAT Ratio 0.10 mg/mg CR
[2025-05-20 16:49] LABS: Tacrolimus, Highly Sensitive 7.9 mcg/L
== END 2025-05-19 07:52 | disposition home or self-care (01) ==
PROVIDERS: PCP Internal Medicine; Visit Provider Internal Medicine Nephrology
DX: Z48.22 Encounter for aftercare following kidney transplant (principal); Z79.899 Other long term (current) drug therapy; Z94.0 Kidney transplant status
CPT/HCPCS: 36415; 80069; 80197; 81001; 82570; 83735; 84156; 85025; 87496; 87798

== ENCOUNTER 2025-06-01 07:55 | Outpatient (CLI) | payer MEDICARE, MEDICAID, SELFPAY ==
[2025-06-01 09:05] LABS: Hematocrit 40.8 % (37-53); Hemoglobin 12.90 g/dL (11.27-16.99); Mean Corpuscular HGB Conc 31.6 g/dL (30-55); Mean Corpuscular Hemoglobin 28.6 pg (27-33); Mean Corpuscular Volume 90.5 fl (82-101); Nucleated Red Blood Cells % 0 %; Platelet Count 135 10^3/cmm (157-399); Red Blood Count 4.51 10^6/uL (3.85-5.65); White Blood Count 4.58 10^3/uL (3.29-11.43)
[2025-06-01 09:06] LABS: Glucose Urine UA Negative (Normal); Nitrate Urine Negative (Negative); Specific Gravity, Urine 1.015 (1.005-1.030)
[2025-06-01 09:10] LABS: Add Urine Microscopic? YES
[2025-06-01 09:31] LABS: Albumin Level 4.2 g/dL (3.5-5.2); Anion Gap 13.5 (5-19); Blood Urea Nitrogen 37 mg/dL (8-23); Calcium 9.4 mg/dL (8.5-10.5); Carbon Dioxide 24 mmol/L (22-29); Chloride 106 mmol/L (98-107); Glucose 95 mg/dL (65-115); Magnesium 1.9 mg/dL (1.7-2.3); Potassium 4.5 mmol/L (3.5-5.1); Sodium 139 mmol/L (136-145)
[2025-06-01 09:32] LABS: Creatinine Urine, Random 74 mg/dL (39-259); Microalbum Creatinine Ratio Ur 14 mg/dL (0-20)
[2025-06-02 15:05] LABS: Tacrolimus, Highly Sensitive 5.8 mcg/L
== END 2025-06-01 07:56 | disposition home or self-care (01) ==
LOC: LAB 07:57
PROVIDERS: PCP Internal Medicine; Visit Provider Internal Medicine Nephrology
DX: Z79.899 Other long term (current) drug therapy (principal); Z48.22 Encounter for aftercare following kidney transplant; Z94.0 Kidney transplant status
CPT/HCPCS: 80069; 80197; 81001; 82044; 83735; 85025; 87496; 87798

== ENCOUNTER 2025-06-08 07:50 | Outpatient (CLI) | payer MEDICARE, MEDICAID, SELFPAY ==
[2025-06-08 08:47] LABS: Glucose Urine UA Negative (Normal); Nitrate Urine Negative (Negative); Specific Gravity, Urine 1.015 (1.005-1.030)
[2025-06-08 08:48] LABS: Hematocrit 41.0 % (37-53); Hemoglobin 12.60 g/dL (11.27-16.99); Mean Corpuscular HGB Conc 30.7 g/dL (30-55); Mean Corpuscular Hemoglobin 27.9 pg (27-33); Mean Corpuscular Volume 90.9 fl (82-101); Nucleated Red Blood Cells % 0 %; Platelet Count 136 10^3/cmm (157-399); Red Blood Count 4.51 10^6/uL (3.85-5.65); White Blood Count 4.19 10^3/uL (3.29-11.43)
[2025-06-08 09:01] LABS: Albumin Level 4.3 g/dL (3.5-5.2); Anion Gap 14.7 (5-19); Blood Urea Nitrogen 24 mg/dL (8-23); Calcium 9.3 mg/dL (8.5-10.5); Carbon Dioxide 23 mmol/L (22-29); Chloride 106 mmol/L (98-107); Glucose 90 mg/dL (65-115); Magnesium 2.0 mg/dL (1.7-2.3); Potassium 4.7 mmol/L (3.5-5.1); Sodium 139 mmol/L (136-145)
[2025-06-08 09:06] LABS: Creatinine Urine, Random 111 mg/dL (39-259); Microalbum Creatinine Ratio Ur 9 mg/dL (0-20)
[2025-06-09 12:35] LABS: Tacrolimus, Highly Sensitive 8.0 mcg/L
== END 2025-06-08 07:51 | disposition home or self-care (01) ==
LOC: LAB 07:55
PROVIDERS: PCP Internal Medicine; Visit Provider Internal Medicine Nephrology
DX: Z79.899 Other long term (current) drug therapy (principal)
CPT/HCPCS: 36415; 80069; 80197; 81001; 82044; 83735; 85025; 87496; 87798

== ENCOUNTER 2025-06-16 08:33 | Outpatient (CLI) | payer MEDICAID, MEDICARE, SELFPAY ==
[2025-06-16 09:41] LABS: Add Urine Microscopic? NO
[2025-06-16 09:43] LABS: Hematocrit 42.8 % (37-53); Hemoglobin 13.30 g/dL (11.27-16.99); Mean Corpuscular HGB Conc 31.1 g/dL (30-55); Mean Corpuscular Hemoglobin 28.1 pg (27-33); Mean Corpuscular Volume 90.5 fl (82-101); Nucleated Red Blood Cells % 0 %; Platelet Count 135 10^3/cmm (157-399); Red Blood Count 4.73 10^6/uL (3.85-5.65); White Blood Count 5.09 10^3/uL (3.29-11.43)
[2025-06-16 10:01] LABS: Glucose Urine UA Negative (Normal); Nitrate Urine Negative (Negative); Specific Gravity, Urine 1.016 (1.005-1.030)
[2025-06-16 10:08] LABS: Albumin Level 4.4 g/dL (3.5-5.2); Anion Gap 13.8 (5-19); Blood Urea Nitrogen 30 mg/dL (8-23); Calcium 9.9 mg/dL (8.5-10.5); Carbon Dioxide 24 mmol/L (22-29); Chloride 105 mmol/L (98-107); Glucose 101 mg/dL (65-115); Magnesium 2.0 mg/dL (1.7-2.3); Potassium 4.8 mmol/L (3.5-5.1); Sodium 138 mmol/L (136-145)
[2025-06-16 10:37] LABS: Charge for UA Resulting for Rev
[2025-06-16 10:52] LABS: Creatinine Urine, Random 105 mg/dL (39-259)
[2025-06-16 10:53] LABS: Microalbum Creatinine Ratio Ur 48 mg/dL (0-20)
== END 2025-06-16 08:34 | disposition home or self-care (01) ==
LOC: LAB 08:41
PROVIDERS: PCP Internal Medicine; Visit Provider Internal Medicine Nephrology
DX: Z79.899 Other long term (current) drug therapy (principal); Z48.22 Encounter for aftercare following kidney transplant
CPT/HCPCS: 36415; 80069; 80197; 81001; 81003; 82044; 83735; 85025; 87496; 87798

== ENCOUNTER 2025-06-22 07:13 | Outpatient (CLI) | payer MEDICARE, MEDICAID, SELFPAY ==
[2025-06-22 08:29] LABS: Hematocrit 41.8 % (37-53); Hemoglobin 13.10 g/dL (11.27-16.99); Mean Corpuscular HGB Conc 31.3 g/dL (30-55); Mean Corpuscular Hemoglobin 28.6 pg (27-33); Mean Corpuscular Volume 91.3 fl (82-101); Nucleated Red Blood Cells % 0 %; Platelet Count 151 10^3/cmm (157-399); Red Blood Count 4.58 10^6/uL (3.85-5.65); White Blood Count 5.23 10^3/uL (3.29-11.43)
[2025-06-22 08:49] LABS: Albumin Level 4.4 g/dL (3.5-5.2); Anion Gap 15.8 (5-19); Blood Urea Nitrogen 21 mg/dL (8-23); Calcium 9.5 mg/dL (8.5-10.5); Carbon Dioxide 23 mmol/L (22-29); Chloride 106 mmol/L (98-107); Glucose 93 mg/dL (65-115); Magnesium 2.0 mg/dL (1.7-2.3); Potassium 4.8 mmol/L (3.5-5.1); Sodium 140 mmol/L (136-145)
[2025-06-22 09:22] LABS: Creatinine Urine, Random 75 mg/dL (39-259)
[2025-06-22 09:34] LABS: Glucose Urine UA Norm (Normal); Nitrate Urine Negative (Negative); Specific Gravity, Urine 1.015 (1.005-1.030); UA Manual Slide Review YES; UA Slide Review UA Slide Review Perf
[2025-06-22 09:54] LABS: Microalbum Creatinine Ratio Ur 13 mg/dL (0-20)
[2025-06-23 13:25] LABS: Tacrolimus, Highly Sensitive 10.0 mcg/L
== END 2025-06-22 07:14 | disposition home or self-care (01) ==
LOC: LAB 07:16
PROVIDERS: PCP Internal Medicine; Visit Provider Internal Medicine Nephrology
DX: Z48.22 Encounter for aftercare following kidney transplant (principal); Z79.899 Other long term (current) drug therapy; Z94.0 Kidney transplant status
CPT/HCPCS: 36415; 80069; 80197; 81001; 82044; 83735; 85025; 87496; 87798

== ENCOUNTER 2025-07-06 08:57 | Outpatient (CLI) | payer MEDICARE, MEDICAID, SELFPAY ==
[2025-07-06 10:09] LABS: Hematocrit 44.2 % (37-53); Hemoglobin 13.50 g/dL (11.27-16.99); Mean Corpuscular HGB Conc 30.5 g/dL (30-55); Mean Corpuscular Hemoglobin 27.7 pg (27-33); Mean Corpuscular Volume 90.8 fl (82-101); Nucleated Red Blood Cells % 0 %; Platelet Count 144 10^3/cmm (157-399); Red Blood Count 4.87 10^6/uL (3.85-5.65); White Blood Count 4.79 10^3/uL (3.29-11.43)
[2025-07-06 10:18] LABS: Glucose Urine UA Negative (Normal); Nitrate Urine Negative (Negative); Specific Gravity, Urine 1.015 (1.005-1.030)
[2025-07-06 10:19] LABS: Albumin Level 4.4 g/dL (3.5-5.2); Anion Gap 14.7 (5-19); Blood Urea Nitrogen 25 mg/dL (8-23); Calcium 9.6 mg/dL (8.5-10.5); Carbon Dioxide 24 mmol/L (22-29); Chloride 103 mmol/L (98-107); Glucose 102 mg/dL (65-115); Magnesium 2.3 mg/dL (1.7-2.3); Potassium 4.7 mmol/L (3.5-5.1); Sodium 137 mmol/L (136-145)
[2025-07-06 10:34] LABS: Creatinine Urine, Random 88 mg/dL (39-259); Microalbum Creatinine Ratio Ur 11 mg/dL (0-20)
[2025-07-06 10:35] LABS: Add Urine Microscopic? YES
== END 2025-07-06 08:58 | disposition home or self-care (01) ==
PROVIDERS: PCP Internal Medicine; Visit Provider Internal Medicine
DX: Z79.899 Other long term (current) drug therapy (principal); Z48.22 Encounter for aftercare following kidney transplant; Z84.0 Family history of diseases of the skin and subcutaneous tissue
CPT/HCPCS: 36415; 80069; 80197; 81001; 82044; 83735; 85025; 87496; 87798

== ENCOUNTER 2025-07-21 08:09 | Outpatient (CLI) | payer MEDICARE, MEDICAID, SELFPAY ==
[2025-07-21 09:15] LABS: Hematocrit 43.1 % (37-53); Hemoglobin 13.30 g/dL (11.27-16.99); Mean Corpuscular HGB Conc 30.9 g/dL (30-55); Mean Corpuscular Hemoglobin 28.0 pg (27-33); Mean Corpuscular Volume 90.7 fl (82-101); Platelet Count 137 10^3/cmm (157-399); Red Blood Count 4.75 10^6/uL (3.85-5.65); White Blood Count 5.16 10^3/uL (3.29-11.43)
[2025-07-21 09:19] LABS: Glucose Urine UA Negative (Normal); Nitrate Urine Negative (Negative); Specific Gravity, Urine 1.012 (1.005-1.030)
[2025-07-21 09:24] LABS: Add Urine Microscopic? YES
[2025-07-21 09:40] LABS: Creatinine Urine, Random 55 mg/dL (39-259); Microalbum Creatinine Ratio Ur 18 mg/dL (0-20)
[2025-07-21 09:43] LABS: Albumin Level 4.3 g/dL (3.5-5.2); Anion Gap 16.5 (5-19); Blood Urea Nitrogen 27 mg/dL (8-23); Calcium 9.4 mg/dL (8.5-10.5); Carbon Dioxide 23 mmol/L (22-29); Chloride 104 mmol/L (98-107); Glucose 91 mg/dL (65-115); Magnesium 1.8 mg/dL (1.7-2.3); Potassium 4.5 mmol/L (3.5-5.1); Sodium 139 mmol/L (136-145)
[2025-07-21 10:10] LABS: Slide Review Slide Review Perform
[2025-07-21 10:11] LABS: Absolute Segmented Neutrophil 2.8 10/cmm (1.6-7.1); Atypical Lymphs 5.0 % (0-5); Band Neutrophils Absolute 0.4 10^3/cmm (0.0-1.2); Total Cells Counted 100 (0-100)
== END 2025-07-21 08:10 | disposition home or self-care (01) ==
PROVIDERS: PCP Internal Medicine; Visit Provider Internal Medicine
DX: Z79.899 Other long term (current) drug therapy (principal); Z48.22 Encounter for aftercare following kidney transplant
CPT/HCPCS: 80069; 80197; 81001; 82044; 83735; 85007; 85025; 87496; 87798

== ENCOUNTER 2025-08-03 07:07 | Outpatient (CLI) | payer MEDICARE, MEDICAID, SELFPAY ==
[2025-08-03 08:19] LABS: Hematocrit 41.8 % (37-53); Hemoglobin 13.30 g/dL (11.27-16.99); Mean Corpuscular HGB Conc 31.8 g/dL (30-55); Mean Corpuscular Hemoglobin 28.1 pg (27-33); Mean Corpuscular Volume 88.2 fl (82-101); Nucleated Red Blood Cells % 0 %; Platelet Count 133 10^3/cmm (157-399); Red Blood Count 4.74 10^6/uL (3.85-5.65); White Blood Count 4.01 10^3/uL (3.29-11.43)
[2025-08-03 08:43] LABS: Creatinine Urine, Random 88 mg/dL (39-259); Microalbum Creatinine Ratio Ur 11 mg/dL (0-20)
[2025-08-03 08:48] LABS: Albumin Level 4.4 g/dL (3.5-5.2); Anion Gap 14.7 (5-19); Blood Urea Nitrogen 23 mg/dL (8-23); Calcium 9.6 mg/dL (8.5-10.5); Carbon Dioxide 23 mmol/L (22-29); Chloride 103 mmol/L (98-107); Glucose 104 mg/dL (65-115); Magnesium 2.0 mg/dL (1.7-2.3); Potassium 4.7 mmol/L (3.5-5.1); Sodium 136 mmol/L (136-145)
[2025-08-03 08:59] LABS: Slide Review Slide Review Perform
[2025-08-03 09:20] LABS: Glucose Urine UA Negative (Normal); Nitrate Urine Negative (Negative); Specific Gravity, Urine 1.011 (1.005-1.030)
[2025-08-03 09:25] LABS: Add Urine Microscopic? YES
== END 2025-08-03 07:08 | disposition home or self-care (01) ==
LOC: LAB 07:13
PROVIDERS: PCP Internal Medicine; Visit Provider Internal Medicine Nephrology
DX: Z79.899 Other long term (current) drug therapy (principal); Z48.22 Encounter for aftercare following kidney transplant; Z94.0 Kidney transplant status
CPT/HCPCS: 36415; 80069; 80197; 81001; 82044; 83735; 85025; 87496; 87798

== ENCOUNTER 2025-08-17 08:10 | Outpatient (CLI) | payer MEDICARE, MEDICAID, SELFPAY ==
[2025-08-17 09:43] LABS: Hematocrit 44.1 % (37-53); Hemoglobin 13.80 g/dL (11.27-16.99); Mean Corpuscular HGB Conc 31.3 g/dL (30-55); Mean Corpuscular Hemoglobin 28.0 pg (27-33); Mean Corpuscular Volume 89.5 fl (82-101); Platelet Count 135 10^3/cmm (157-399); Red Blood Count 4.93 10^6/uL (3.85-5.65); White Blood Count 3.26 10^3/uL (3.29-11.43)
[2025-08-17 09:44] LABS: Glucose Urine UA Negative (Normal); Nitrate Urine Negative (Negative); Specific Gravity, Urine 1.014 (1.005-1.030)
[2025-08-17 09:47] LABS: Add Urine Microscopic? YES
[2025-08-17 09:59] LABS: Slide Review Slide Review Perform
[2025-08-17 10:03] LABS: Absolute Segmented Neutrophil 1.3 10/cmm (1.6-7.1); Band Neutrophils Absolute 0.7 10^3/cmm (0.0-1.2); Total Cells Counted 100 (0-100)
[2025-08-17 10:04] LABS: Albumin Level 4.3 g/dL (3.5-5.2); Anion Gap 13.0 (5-19); Atypical Lymphs 0.0 % (0-5); Blood Urea Nitrogen 20 mg/dL (8-23); Calcium 9.3 mg/dL (8.5-10.5); Carbon Dioxide 24 mmol/L (22-29); Chloride 103 mmol/L (98-107); Glucose 103 mg/dL (65-115); Potassium 5.0 mmol/L (3.5-5.1); Sodium 135 mmol/L (136-145)
[2025-08-17 10:08] LABS: Creatinine Urine, Random 89 mg/dL (39-259); Microalbum Creatinine Ratio Ur 11 mg/dL (0-20)
== END 2025-08-17 08:11 | disposition home or self-care (01) ==
PROVIDERS: PCP Internal Medicine; Visit Provider Internal Medicine
DX: M32.14 Glomerular disease in systemic lupus erythematosus (principal)
CPT/HCPCS: 36415; 80069; 80197; 81001; 82044; 85007; 85025; 86160; 87496; 87798

== ENCOUNTER 2025-08-24 07:54 | Outpatient (CLI) | payer MEDICARE, MEDICAID, SELFPAY ==
[2025-08-24 08:52] LABS: Hematocrit 44.7 % (37-53); Hemoglobin 13.50 g/dL (11.27-16.99); Mean Corpuscular HGB Conc 30.2 g/dL (30-55); Mean Corpuscular Hemoglobin 27.4 pg (27-33); Mean Corpuscular Volume 90.7 fl (82-101); Platelet Count 135 10^3/cmm (157-399); Red Blood Count 4.93 10^6/uL (3.85-5.65); White Blood Count 3.09 10^3/uL (3.29-11.43)
[2025-08-24 09:04] LABS: Glucose Urine UA Negative (Normal); Nitrate Urine Negative (Negative); Specific Gravity, Urine 1.014 (1.005-1.030)
[2025-08-24 09:08] LABS: Slide Review Slide Review Perform
[2025-08-24 09:09] LABS: Add Urine Microscopic? YES
[2025-08-24 09:12] LABS: Absolute Segmented Neutrophil 1.1 10/cmm (1.6-7.1); Atypical Lymphs 2.0 % (0-5); Band Neutrophils Absolute 0.7 10^3/cmm (0.0-1.2); Total Cells Counted 100 (0-100)
[2025-08-24 09:16] LABS: Albumin Level 4.0 g/dL (3.5-5.2); Anion Gap 14.8 (5-19); Blood Urea Nitrogen 23 mg/dL (8-23); Calcium 9.1 mg/dL (8.5-10.5); Carbon Dioxide 24 mmol/L (22-29); Chloride 107 mmol/L (98-107); Glucose 97 mg/dL (65-115); Magnesium 2.1 mg/dL (1.7-2.3); Potassium 4.8 mmol/L (3.5-5.1); Sodium 141 mmol/L (136-145)
[2025-08-24 09:27] LABS: Creatinine Urine, Random 82 mg/dL (39-259); Microalbum Creatinine Ratio Ur 12 mg/dL (0-20)
== END 2025-08-24 07:55 | disposition home or self-care (01) ==
LOC: LAB 07:55
PROVIDERS: PCP Internal Medicine; Visit Provider Internal Medicine Nephrology
DX: Z79.899 Other long term (current) drug therapy (principal); Z48.22 Encounter for aftercare following kidney transplant; Z94.0 Kidney transplant status
CPT/HCPCS: 36415; 80069; 80197; 81001; 82044; 83735; 85007; 85025; 87496; 87798

== ENCOUNTER 2025-09-01 07:06 | Outpatient (CLI) | payer MEDICARE, MEDICAID, SELFPAY ==
[2025-09-01 07:45] LABS: Hematocrit 43.1 % (37-53); Hemoglobin 13.20 g/dL (11.27-16.99); Mean Corpuscular HGB Conc 30.6 g/dL (30-55); Mean Corpuscular Hemoglobin 27.7 pg (27-33); Mean Corpuscular Volume 90.5 fl (82-101); Platelet Count 132 10^3/cmm (157-399); Red Blood Count 4.76 10^6/uL (3.85-5.65); White Blood Count 3.18 10^3/uL (3.29-11.43)
[2025-09-01 08:02] LABS: Glucose Urine UA Negative (Normal); Nitrate Urine Negative (Negative); Specific Gravity, Urine 1.017 (1.005-1.030)
[2025-09-01 08:06] LABS: Albumin Level 4.1 g/dL (3.5-5.2); Anion Gap 12.3 (5-19); Blood Urea Nitrogen 22 mg/dL (8-23); Calcium 8.8 mg/dL (8.5-10.5); Carbon Dioxide 26 mmol/L (22-29); Chloride 106 mmol/L (98-107); Glucose 99 mg/dL (65-115); Magnesium 2.0 mg/dL (1.7-2.3); Potassium 4.3 mmol/L (3.5-5.1); Sodium 140 mmol/L (136-145)
[2025-09-01 08:07] LABS: Add Urine Microscopic? YES
[2025-09-01 08:13] LABS: Slide Review Slide Review Perform
[2025-09-01 08:17] LABS: Absolute Segmented Neutrophil 1.1 10/cmm (1.6-7.1); Atypical Lymphs 0.0 % (0-5); Band Neutrophils Absolute 0.9 10^3/cmm (0.0-1.2); Total Cells Counted 100 (0-100)
[2025-09-01 08:23] LABS: Creatinine Urine, Random 97 mg/dL (39-259); Microalbum Creatinine Ratio Ur 10 mg/dL (0-20)
[2025-09-02 15:30] LABS: Tacrolimus, Highly Sensitive 5.4 mcg/L
== END 2025-09-01 07:07 | disposition home or self-care (01) ==
PROVIDERS: Internal Medicine Nephrology; PCP Internal Medicine; Visit Provider Internal Medicine Nephrology
DX: Z79.899 Other long term (current) drug therapy (principal); Z94.0 Kidney transplant status
CPT/HCPCS: 36415; 80069; 80197; 81001; 82044; 83735; 85007; 85025; 87496; 87798

== ENCOUNTER 2025-09-14 07:36 | Outpatient (CLI) | payer MEDICARE, MEDICAID, SELFPAY ==
[2025-09-14 08:09] LABS: Hematocrit 44.8 % (37-53); Hemoglobin 13.70 g/dL (11.27-16.99); Mean Corpuscular HGB Conc 30.6 g/dL (30-55); Mean Corpuscular Hemoglobin 27.5 pg (27-33); Mean Corpuscular Volume 90.0 fl (82-101); Nucleated Red Blood Cells % 0 %; Platelet Count 100 10^3/cmm (157-399); Red Blood Count 4.98 10^6/uL (3.85-5.65); White Blood Count 3.01 10^3/uL (3.29-11.43)
[2025-09-14 08:12] LABS: Glucose Urine UA Negative (Normal); Nitrate Urine Negative (Negative); Specific Gravity, Urine 1.014 (1.005-1.030)
[2025-09-14 08:16] LABS: Add Urine Microscopic? YES
[2025-09-14 08:30] LABS: Albumin Level 4.2 g/dL (3.5-5.2); Anion Gap 13.4 (5-19); Blood Urea Nitrogen 22 mg/dL (8-23); Calcium 9.3 mg/dL (8.5-10.5); Carbon Dioxide 23 mmol/L (22-29); Chloride 106 mmol/L (98-107); Glucose 98 mg/dL (65-115); Magnesium 2.1 mg/dL (1.7-2.3); Potassium 4.4 mmol/L (3.5-5.1); Sodium 138 mmol/L (136-145)
[2025-09-14 08:40] LABS: UPRO/UCREAT Ratio 0.08 mg/mg CR
== END 2025-09-14 07:37 | disposition home or self-care (01) ==
PROVIDERS: PCP Internal Medicine; Visit Provider Internal Medicine Nephrology
DX: Z79.899 Other long term (current) drug therapy (principal); Z48.22 Encounter for aftercare following kidney transplant; Z94.0 Kidney transplant status
CPT/HCPCS: 36415; 80069; 80197; 81001; 82570; 83735; 84156; 85025; 87496; 87798